=== PATIENT | male | born 1945 | race Caucasian/White ===

== ENCOUNTER → 2018-09-01 07:41 | Outpatient (CLI) | payer MEDICARE, SELFPAY ==
[2018-05-03 16:01] VITALS: BMI 25.5
[2018-09-01 10:23] LABS: AST(SGOT) 33 U/L (15-37); Alanine Aminotransfer ALT/SGPT 54 U/L (16-61); Alkaline Phosphatase 106 U/L (45-117); Bilirubin, Direct 0.22 mg/dL (0.00-0.30); Cholesterol 139 mg/dL (200); Globulin 3.1 g/dL (2.2-4.2); High Density Lipoprotein 41 mg/dL; Protein, Total 7.1 g/dL (6.4-8.2); Triglycerides 111 mg/dL; Very Low Density Lipoprotein 22 mg/dL (5-40)
== END ==
PROVIDERS: Family Provider Internal Medicine; PCP Internal Medicine; Referring Provider Internal Medicine Cardiovascular Disease; Visit Provider Internal Medicine Cardiovascular Disease
DX: E78.5 Hyperlipidemia, unspecified (principal); I25.10 Atherosclerotic heart disease of native coronary artery without angina pectoris; Z12.5 Encounter for screening for malignant neoplasm of prostate
CPT/HCPCS: 36415; 80061; 80076; 84153; G0103

== ENCOUNTER → 2019-03-09 | Outpatient (CLI) | payer MEDICARE, SELFPAY ==
[2018-09-05 09:48] VITALS: BMI 25.7
[2019-03-09 08:28] LABS: AST(SGOT) 30 U/L (15-37); Alanine Aminotransfer ALT/SGPT 46 U/L (16-61); Albumin, Serum 3.7 g/dL (3.2-5.0); Alkaline Phosphatase 90 U/L (45-117); Bilirubin, Direct 0.16 mg/dL (0.00-0.30); Cholesterol 136 mg/dL (200); Globulin 3.1 g/dL (2.2-4.2); High Density Lipoprotein 40 mg/dL; Protein, Total 6.8 g/dL (6.4-8.2); Triglycerides 114 mg/dL; Very Low Density Lipoprotein 23 mg/dL (5-40)
== END | disposition home or self-care (01) ==
LOC: LAB 07:03
PROVIDERS: Family Provider Internal Medicine; PCP Internal Medicine; Referring Provider Internal Medicine Cardiovascular Disease; Visit Provider Internal Medicine Cardiovascular Disease
DX: E78.5 Hyperlipidemia, unspecified (principal)
CPT/HCPCS: 36415; 80061; 80076

== ENCOUNTER 2019-05-20 16:24 | Emergency (ER) | payer MEDICARE, SELFPAY ==
[2019-03-20 10:30] VITALS: BMI 25.0
[2019-05-20 16:29] VITALS: BP 145/76; PULSE 60; RESP 16; TEMP 36.3; O2SAT 94; BMI 25.2
--- NOTE | 2019-05-20 16:35 | EKG12_ITS ---
Test Reason : CP Blood Pressure : / mmHG Vent. Rate : 056 BPM Atrial Rate : 056 BPM P-R Int : 142 ms QRS Dur : 090 ms QT Int : 412 ms P-R-T Axes : 029 017 050 degrees QTc Int : 397 ms Sinus bradycardia Otherwise normal ECG Confirmed by DARRYL CULP, NOBLE ([id number]), development editor KARSTEN WEISS ([id number]) on 05/23/2019 12:17:59 PM Referred By: Confirmed By:NOBLE ANDREWS MD
--- NOTE | 2019-05-20 16:36 | RAD_ITS ---
STUDY: X-RAY CHEST REASON FOR EXAM: Male, 73 years old. Extreme heartburn. TECHNIQUE: Portable chest. COMPARISON: 10/12/2016. FINDINGS: The lungs are clear and expanded. There is no demonstrated pleural abnormality. Normal size heart. Prior CABG. Normal mediastinum and christian. Normal visualized pulmonary arteries. Normal visualized aortic arch and descending thoracic aorta. Normal visualized thoracic spine. Normal visualized ribs, clavicles, and shoulders. There is no demonstrated abnormality of the visualized soft tissue structures of the upper abdomen. RAD/Chest 1 View (Portable) IMPRESSION: Normal x-ray examination of the chest. Electronically Signed: Dilcia Garber MD at 17:01 EDT Tel , Service support ,
--- NOTE | 2019-05-20 16:38 | ED.DCSUM_ITS ---
- ER Visit Summary Date of Service: 05/20/19 Chief Complaint: Chest pain History of Present Illness: The patient is a 73 M who presents with chest pain that began today. Patient states he was visiting a friend in the hospital when his pain began. Patient states this lasted approximately 10 to 15 minutes. Patient states the pain was over the epigastric and substernal area. Patient describes it as sharp. Patient states the pain has resolved. Patient does admit to some shortness of breath with this. Patient states he took a Zantac at home and his pain improved after this. Patient does admit to some recent travel. Patient denies any nausea or vomiting. Patient denies any diaphoresis. Patient denies any palpitations. Currently, the patient denies any chest pain. Patient states he called his ux lead who referred him to the emergency department for evaluation. Physical Examination: Vital signs are stable. Patient is afebrile. Patient is in no acute distress. Oral mucosa is pink and moist. Neck is supple. Trachea is midline. There is no JVD noted. Heart was regular rate and rhythm. Lungs are clear and equal bilateral. Abdomen is soft. Bowel sounds are normal. There is no tenderness. There is no guarding noted. Skin is warm dry. Cranial nerves II through XII are intact. There are no focal motor or sensory deficits noted. Test Results: EKG showed normal sinus rhythm with a rate of 56. There are no acute ST or T wave changes. CBC and basic metabolic profile were essentially within normal limits. Troponin was normal. D-dimer was normal. Portable chest x-ray was obtained. There is no acute cardiopulmonary process. This was interpreted by the radiologist and reviewed by myself. Emergency Department Course and Treatment: Patient was given aspirin here. Patient had no further episodes of chest pain here in the emergency department. Dr. Abebe was here in the emergency department and saw the patient. He agrees that this is most likely an episode of gastroesophageal reflux. Patient states he has a prescription at home for Nexium. Patient states he will start taking that again. Patient was instructed to follow-up with his primary care physician as well as Dr. Abebe. Patient understood and was agreeable with the plan. All questions were answered. Disposition: Discharge home Impression: 1. Chest pain 2. Gastroesophageal reflux disease This note was generated with [employer] software. It may contain incorrect words, spelling, and punctuation that were not noted in review of the chart prior to signing ED Disposition - Plan for ED Patient: Disposition: Home or Assisted Living Diagnosis: Chest pain due to GERD Instructions: GERD (Adult) Referrals: Blayne Robbins MD [Primary Care Provider] - 5-7 Days
[2019-05-20] MEDS: Aspirin 81 MG TAB.CHEW 324 MG PO (16:45)
[2019-05-20 16:57] LABS: Anion Gap 4 (5-15); BUN 21 mg/dL (7-18); Calcium,Total 8.6 mg/dL (8.5-10.1); Chloride 105 mmol/L (98-107); Creatinine, Serum 1.05 mg/dL (0.70-1.30); EST Glomerular Filtration Rate 74 mL/min (>60); Est Glom Filt Rate - Afr Amer 89 mL/min (>60); Estimated Creatinine Clearance 60.33 ml/min; Glucose 121 mg/dL (74-106); Potassium 3.9 mmol/L (3.5-5.1); Sodium Level 143 mmol/L (136-145)
[2019-05-20 17:07] LABS: Absolute Lymphocyte Count 1.04 X10^3/uL (0.83-4.51); Absolute Neutrophil Count 2.9 X10^3/uL (2.0-7.7); Basophil# 0.02 X10^3/uL; Basophil% 0.4 % (0-1); Eosinophil# 0.11 X10^3/uL; Eosinophils% 2.3 % (0-5); Hematocrit 48.1 % (40-54); Hemoglobin 15.5 g/dL (13.0-16.5); Lymphocyte # 1.04 X10^3/ul (4.0); Lymphocyte % 22.1 % (19-41); Mean Corp Hgb Conc 32.2 g/dL (32-36); Mean Corpuscular Hgb 29.1 pg (27.0-32.0); Mean Corpuscular Volume 90.2 fL (80-94); Mean Platelet Vol. 10.8 fl (6.2-12.0); Monocyte# 0.59 X10^3/uL; Monocyte% 12.6 % (0-10); NRBC Flagged by Analyzer 0 % (0-5); Neutrophil # 2.93 X10^3/uL (2.7-7.7); Neutrophil % 62.4 % (47-70); Platelet Count 193 K/mm3 (150-450); RBC Distribution Width CV 13.5 % (11.6-14.6); RBC Distribution Width SD 43.8 fl (35.1-43.9); Red Blood Count 5.33 M/mm3 (4.6-6.2); White Blood Count 4.7 K/mm3 (4.4-11.0)
[2019-05-20 17:19] VITALS: BP 132/73; PULSE 63; RESP 16; O2SAT 97
[2019-05-20 17:46] VITALS: BP 128/78; PULSE 59; RESP 12; O2SAT 97
== END 2019-05-20 17:47 | disposition home or self-care (01) ==
PROVIDERS: Emergency Provider Emergency Medicine; Family Provider Internal Medicine; PCP Internal Medicine
DX: R07.9 Chest pain, unspecified (principal); K21.9 Gastro-esophageal reflux disease without esophagitis; I25.10 Atherosclerotic heart disease of native coronary artery without angina pectoris; Z95.1 Presence of aortocoronary bypass graft; Z79.82 Long term (current) use of aspirin
CPT/HCPCS: 71045; 80048; 84484; 85025; 85379; 93005; 99284

== ENCOUNTER → 2019-09-18 07:20 | Outpatient (CLI) | payer MEDICARE, SELFPAY ==
[2019-09-18 09:04] LABS: AST(SGOT) 34 U/L (15-37); Alanine Aminotransfer ALT/SGPT 62 U/L (16-61); Albumin, Serum 3.6 g/dL (3.2-5.0); Alkaline Phosphatase 96 U/L (45-117); Bilirubin, Direct 0.18 mg/dL (0.00-0.30); Cholesterol 148 mg/dL (200); Globulin 3.1 g/dL (2.2-4.2); High Density Lipoprotein 44 mg/dL; Protein, Total 6.7 g/dL (6.4-8.2); Triglycerides 113 mg/dL; Very Low Density Lipoprotein 23 mg/dL (5-40)
== END ==
PROVIDERS: PCP Internal Medicine; Referring Provider Internal Medicine Cardiovascular Disease; Visit Provider Internal Medicine Cardiovascular Disease
DX: E78.5 Hyperlipidemia, unspecified (principal)
CPT/HCPCS: 36415; 80061; 80076

== ENCOUNTER → 2020-03-14 06:22 | Outpatient (CLI) | payer MEDICARE, SELFPAY ==
[2020-03-14 07:07] LABS: AST(SGOT) 33 U/L (15-37); Alanine Aminotransfer ALT/SGPT 78 U/L (16-61); Albumin, Serum 3.7 g/dL (3.2-5.0); Alkaline Phosphatase 88 U/L (45-117); Bilirubin, Direct 0.19 mg/dL (0.00-0.30); Cholesterol 125 mg/dL (200); Globulin 2.7 g/dL (2.2-4.2); High Density Lipoprotein 39 mg/dL; Protein, Total 6.4 g/dL (6.4-8.2); Triglycerides 100 mg/dL; Very Low Density Lipoprotein 20 mg/dL (5-40)
== END ==
PROVIDERS: PCP Internal Medicine; Referring Provider Internal Medicine Cardiovascular Disease; Visit Provider Internal Medicine Cardiovascular Disease
DX: E78.00 Pure hypercholesterolemia, unspecified (principal)
CPT/HCPCS: 36415; 80061; 80076

== ENCOUNTER → 2020-10-15 07:18 | Outpatient (CLI) | payer MEDICARE, SELFPAY ==
[2020-03-20 11:02] VITALS: BMI 23.8
[2020-10-15 08:44] LABS: AST(SGOT) 32 U/L (15-37); Alanine Aminotransfer ALT/SGPT 46 U/L (16-61); Albumin, Serum 3.7 g/dL (3.2-5.0); Alkaline Phosphatase 88 U/L (45-117); Bilirubin, Direct 0.18 mg/dL (0.00-0.30); Cholesterol 137 mg/dL (200); High Density Lipoprotein 47 mg/dL; Protein, Total 6.7 g/dL (6.4-8.2); Triglycerides 96 mg/dL; Very Low Density Lipoprotein 19 mg/dL (5-40)
== END ==
PROVIDERS: PCP Internal Medicine; Referring Provider Internal Medicine Cardiovascular Disease; Visit Provider Internal Medicine Cardiovascular Disease
DX: E78.00 Pure hypercholesterolemia, unspecified (principal)
CPT/HCPCS: 36415; 80061; 80076

== ENCOUNTER 2021-01-25 11:55 | Emergency (ER) | payer MEDICARE, SELFPAY ==
[2020-03-20 11:02] VITALS: BMI 23.8
[2021-01-25 11:55] VITALS: BP 125/64; PULSE 62; RESP 16; TEMP 36.8; BMI 24.3
--- NOTE | 2021-01-25 12:09 | CT_ITS ---
STUDY: CT ABDOMEN AND PELVIS WITHOUT CONTRAST REASON FOR EXAM: Male, 75 years old. RLQ pain w/ radiation into testicle RADIATION DOSAGE (If Supplied By Facility): CTDIvol = ( 6.28 ) mGy, DLP = ( 434.51 ) mGycm TECHNIQUE: Transaxial images were obtained from the dome of the diaphragm to the symphysis pubis without oral contrast, and without intravenous contrast. Sagittal and coronal images were reconstructed. Individualized dose optimization techniques were used for this CT. COMPARISON: 12/19/2013 FINDINGS: The visualized lung bases are unremarkable. The visualized portions of the heart are within normal limits. Normal liver. There are surgical clips in the gallbladder fossa consistent with a prior cholecystectomy. Normal spleen. Normal pancreas. Normal bilateral adrenal glands. Normal right kidney. Pelvic left kidney. 3 mm nonobstructing stone lower pole left kidney. 4 mm obstructing stone at the left ureterovesical junction with the mild ureteral dilatation and hydronephrosis. Normal visualized stomach. Normal small intestine. Normal colon. There is non-visualization of the appendix. Normal abdominal aorta. Normal inferior vena cava. Normal retroperitoneum. Normal urinary bladder. 5 x 10 cm fluid collection in the right side of the pelvis may represent a bladder diverticulum. Large left hydrocele of the scrotum. Normal abdominal wall. Mild dextroscoliosis of the thoracolumbar spine with degenerative disc disease per CT/Abdomen/Pelvis without Cont IMPRESSION: 1. Pelvic left kidney with a 4 mm obstructing stone at the left ureterovesical junction with mild ureteral dilatation and hydronephrosis. 2. 5 x 10 cm fluid collection in the right side of the pelvis which may represent a bladder diverticulum. 3. Large left hydrocele. Electronically Signed: Yovani Peña MD at 12:57 EDT Tel , Service support ,
--- NOTE | 2021-01-25 12:11 | EDS_ITS ---
HPI History of Present Illness Chief Complaint: Complaint Informant: patient Pain Onset: Yesterday Context: - (Awoke with pain) Timing: Continuous Current Severity: Moderate Maximum Severity: Severe Worsened by: Sitting or lying down Relieved by: Standing, scrotal support Penile Discharge Genital Discharge Amount: None Urinary Symptoms Genitourinary Symptoms: No Symptoms Narrative Narrative: Patient started having right testicular pain yesterday, was seen at urgent care and diagnosed with epididymitis prescribed Bactrim which he has started taking. Today the pain is worse, and into his right lower quadrant. He denies any nausea or vomiting. He took ibuprofen for pain which was helping yesterday but not this morning. He denies any other new symptoms. Yesterday, he had a urinalysis that dipped positive for blood only, he brought the results. It was otherwise negative. No history of STDs. He also states that he had an incidental finding on some type of imaging of his abdomen/pelvis 2 months ago when he was in [place] and had calculus cholecystitis, he was advised to see a urologist because of the abnormality but they did not know what it was. He has not yet been able to see a urologist. [facility] Medical History (Updated 01/25/21 @ 13:[address] Monty Wong MD) Atherosclerotic heart disease of [place] coronary artery without angina pectoris HLD (hyperlipidemia) Home Medications aspirin 81 mg PO DAILY@0800 12/19/13 [History Last Taken Unknown] multivitamin 1 tab PO DAILY 03/20/19 [History Last Taken Unknown] atorvastatin 40 mg tablet 40 mg PO QHS #90 tab 11/03/20 [Rx Last Taken Unknown] oxycodone-acetaminophen [Percocet] 1 tab PO Q4H PRN 3 Days #18 tab 01/25/21 [Rx Last Taken Unknown] Allergy/AdvReac Type Severity Reaction Status Date / Time No Known Allergies Allergy Verified 01/25/21 11:55 Family History Father Hx of CABG Mother Hx of CABG CAD (coronary artery disease) Surgical History H/O coronary artery bypass surgery (02/27/99) Social History Smoking Status: Never smoker alcohol intake: current alcohol intake frequency: a few times a week Alcohol type: wine substance use type: does not use caffeine: No what type of physical activity do you participate in: walking and bicycling frequency: 3-4 times per week duration: 30-45 minutes/day seatbelt use: always do you feel safe at home: Yes ROS ROS ED Constitutional Constitutional ED: Denies chills or fever(s) Eyes Eyes: Denies change in vision or diplopia ENT ENT ED: Denies rhinorrhea or sore throat Cardiovascular Cardiovascular: Denies chest pain or palpitations Respiratory/Chest Respiratory/Chest: Denies cough or dyspnea Gastrointestinal Gastrointestinal: Reports abdominal pain; Denies diarrhea, nausea or vomiting Genitourinary Genitourinary ED: Reports as per HPI and scrotal pain; Denies dysuria, hematuria or testicular swelling Musculoskeletal Musculoskeletal: Denies back pain or neck pain Integumentary Denies abscess or rash Neurologic Neurologic: Denies headache(s), paresthesias or weakness Psychiatric Psychiatric: Denies anxiety or suicidal thoughts EXAM Physical Exam Const Vital Signs: 01/25/21 11:55 Temperature 98.3 F Temperature Source Oral Pulse Rate 62 Respiratory Rate 16 Blood Pressure 125/64 H Blood Pressure Mean 84 Positive well nourished and well developed General Appearance ED: well developed and NAD HEENT Reports moist mucous membranes normocephalic and atraumatic Eyes PERRL and EOMs intact bilaterally Neck full ROM and supple Resp normal respiratory effort and clear to auscultation bilaterally Cardio regular rate, regular rhythm and no murmurs GI non-distended Auscultation: normoactive bowel sounds Palpation: soft and tender RLQ; Negative for guarding or rebound tenderness present no CVA tenderness and no hernias present Testes: testicular lie normal and testicular tenderness right (Proximal posteriorly, no distal testicular tenderness. Cremasteric intact.); Negative for enlarged testicle(s), testicular swelling or blue dot sign Back/Spine no CVA tenderness General Back: other FROM Extremity normal to inspection General Extremety ED: Negative for edema, pulses abnormal or tenderness General Extremity: Negative for edema or pulses abnormal Neuro oriented x3, CN's II-XII intact bilaterally and no sensory deficits noted Sensorium / Orientation: awake and alert Motor Exam: strength 5/5 throughout Skin no rashes or lesions noted and no wounds MDM MDM MDM Narrative Medical decision making narrative: As below, patient has an incidental left- sided obstructing 4 mm stone. He is not having pain from this so I do not know how long this has been there, but I discussed expectant management with him and gave him urinary strainers to go home with. He was given a tramadol here, but while waiting for CAT scan results, it did not help his pain. Therefore he will be prescribed stronger medication, I do agree with the diagnosis of right epididymitis, for which he should continue the antibiotics and ibuprofen as needed. He is to follow-up with urology as he already plan to, I discussed the possible bladder diverticulum with him and consulting with urology concerning that. Radiography Diagnostic Testing: Radiology Impression Abdomen/Pelvis CT 01/25/21 12:09 IMPRESSION: 1. Pelvic left kidney with a 4 mm obstructing stone at the left ureterovesical junction with mild ureteral dilatation and hydronephrosis. 2. 5 x 10 cm fluid collection in the right side of the pelvis which may represent a bladder diverticulum. 3. Large left hydrocele. Electronically Signed: Yovani Peña MD at 12:57 EDT Tel , Service support , Discharge Plan Triage Chief Complaint: Complaint ED Provider: Monty Wong Dx/Rx/DC Orders Clinical Impression: Epididymitis, right, Ureterolithiasis, Bladder diverticulum Instructions: ED Epididymitis, ED Urine Strainer Prescriptions: New oxycodone-acetaminophen [Percocet] 2.5-325 mg tablet 1 tab PO Q4H PRN (Reason: pain) 3 Days Qty: 18 RF: 0 No Action multivitamin Tablet 1 tab PO DAILY RF: 0 aspirin 81 MG tablet,chewable 81 mg PO DAILY@0800 RF: 0 atorvastatin 40 mg tablet 40 mg PO QHS Qty: 90 RF: 3 Primary Care Provider: Blayne Robbins Referrals: Raymundo Ingram MD [STAFF PHYSICIAN] - 3-5 Days Blayne Robbins MD [Primary Care Provider] - Activity Restrictions/Additional Instructions: Continue taking Bactrim as prescribed Disposition Disposition: Home, self care
[2021-01-25] MEDS: traMADol 50 MG Tablet PO (12:32)
[2021-01-25] MEDS: oxyCODONE 5 MG Tablet PO (13:39)
== END 2021-01-25 13:42 | disposition home or self-care (01) ==
PROVIDERS: Emergency Provider Emergency Medicine; PCP Internal Medicine
DX: N45.1 Epididymitis (principal); N20.1 Calculus of ureter; N32.3 Diverticulum of bladder; I25.10 Atherosclerotic heart disease of native coronary artery without angina pectoris
CPT/HCPCS: 74176; 99283

== ENCOUNTER → 2021-03-02 13:54 | Outpatient (CLI) | payer MEDICARE, SELFPAY ==
[2021-02-25 12:55] VITALS: BMI 24.3
--- NOTE | 2021-03-02 13:55 | ECHOD_ITS ---
Reason For Study: S/P CABG Procedure This was a 2D Doppler, Color Flow transthoracic echocardiogram. Exam performed in department. Left Ventricle Normal LV size. Sigmoid septum. Left ventricular systolic function is normal. The estimated ejection fraction is 60 %. Stage 1 diastolic dysfunction. No regional wall motion abnormalities noted. Right Ventricle Normal RV size. Normal systolic function. Atria Normal left atrium. Normal right atrium. Mitral Valve Normal mitral valve. Tricuspid Valve Normal tricuspid valve. Mild tricuspid valve insufficiency. Pulmonary artery systolic pressure is 28 mmHg. Aortic Valve Normal aortic valve. Trisinus/trileaflet aortic valve. Pulmonic Valve Normal pulmonic valve. Great Vessels Normal aortic root. The pulmonary artery is normal size. Normal inferior vena cava. Pericardium/Pleural No pericardial effusion. MMode/2D Measurements & Calculations LVIDd: 5.0 cm IVSd: 0.80 cm Ao root diam: 3.3 cm LVIDs: 3.0 cm LVPWd: 0.98 cm RVDd: 3.4 cm FS: 40.3 % LAV(MOD-bp): 53.4 ml LA A4 area: 18.4 cm2 LA dimension(2D): 4.5 cm LAV(MOD-bp) Indexed: 29.6 ml/m2 LAV(MOD-sp2): 53.7 ml LAV(MOD-sp4): 53.3 ml RA A4 area: 15.8 cm2 Time Measurements MV dec time: 0.23 sec Doppler Measurements & Calculations MV E max casey: 65.2 cm/sec Lat Peak E' Casey: 9.4 cm/sec Med Peak E' Casey: 6.3 cm/sec MV A max casey: 74.1 cm/sec E/E' lat: 6.9 E/E' med: 10.4 MV E/A: 0.88 Ao V2 max: 139.0 cm/sec LV V1 max: 126.5 cm/sec PA V2 max: 92.1 cm/sec Ao max P.3 mmHg LV V1 max P.4 mmHg TR max casey: 243.1 cm/sec TR max P.6 mmHg ECHO/Echo Complete Interpretation Summary Normal LV size. Left ventricular systolic function is normal. The estimated ejection fraction is 60 %. Mild tricuspid valve insufficiency. Stage 1 diastolic dysfunction. Ordering Physician: Gray Abebe Referring Physician: Blayne Robbins Performed By: Kerrie King, AZALIA, RVT
== END ==
PROVIDERS: PCP Internal Medicine; Referring Provider Internal Medicine Cardiovascular Disease; Visit Provider Internal Medicine Cardiovascular Disease
DX: Z01.810 Encounter for preprocedural cardiovascular examination (principal); I25.10 Atherosclerotic heart disease of native coronary artery without angina pectoris; E78.00 Pure hypercholesterolemia, unspecified; N20.1 Calculus of ureter; N32.3 Diverticulum of bladder; N45.1 Epididymitis; Z95.1 Presence of aortocoronary bypass graft
CPT/HCPCS: 93306

== ENCOUNTER 2021-03-11 05:25 | Inpatient (IN) | payer MEDICARE, SELFPAY ==
[2021-02-25 12:55] VITALS: BMI 24.3
[2021-03-09 15:38] LABS: Hematocrit 46.8 % (40-54); Hemoglobin 15.1 g/dL (13.0-16.5); Mean Corp Hgb Conc 32.3 g/dL (32-36); Mean Corpuscular Hgb 28.7 pg (27.0-32.0); Mean Corpuscular Volume 88.8 fL (80-94); Mean Platelet Vol. 11.1 fl (6.2-12.0); Platelet Count 219 K/mm3 (150-450); RBC Distribution Width CV 13.4 % (11.6-14.6); RBC Distribution Width SD 43.4 fl (35.1-43.9); Red Blood Count 5.27 M/mm3 (4.6-6.2); White Blood Count 5.1 K/mm3 (4.4-11.0)
[2021-03-09 15:59] LABS: Anion Gap 4 (5-15); BUN 22 mg/dL (7-18); BUN/Creat Ratio 20.8 RATIO (10-20); Calcium,Total 8.7 mg/dL (8.5-10.1); Chloride 104 mmol/L (98-107); Creatinine, Serum 1.06 mg/dL (0.70-1.30); EST Glomerular Filtration Rate 73 mL/min (>60); Est Glom Filt Rate - Afr Amer 88 mL/min (>60); Glucose 91 mg/dL (74-106); Potassium 4.3 mmol/L (3.5-5.1); Sodium Level 141 mmol/L (136-145)
[2021-03-11] VITALS (11 sets, daily range): BP systolic 101–152; BP diastolic 47–101; PULSE 16–67; RESP 16–18; TEMP 36–37.3; O2SAT 95–100; BMI 23.8
--- NOTE | 2021-03-11 | BLB_PTH ---
PATIENT: BRIANNA PATRICK LOC: MS3 U#:[id number] AGE/SX: 75/M ROOM: [facility]315 RE03/11/[address]: Dr. Raymundo Ingram MD : 1945 BED: 1 DIS: 03/12/2021 SPEC #: [id number] RECD: 03/11/21 15:14 STATUS: FLORINA BRANHAM #: [id number] JENNIFER: 03/11/21 00:[address]: Raymundo Ingram DEPT: SURGICAL PATHOLOGY RECD BY: Jose Ramon Wilson ENTERED: 03/12/21 13:29 SP TYPE: TURB OTHR DR: Dr. Blayne Robbins MD Tissues: A - Urinary bladder, NOS B - PROSTATE BIOPSY Procedures: Surgery Specimen Level IV HEADER OPERATION: Lap robotic bladder diverticulectomy, cysto, TUR prostate PRE-OP DIAGNOSIS: Bladder diverticulum, ureterolithiasis TISSUE SUBMITTED: A ? Bladder diverticulum, B ? Prostate tissue MICROSCOPIC DIAGNOSIS A. Urinary bladder diverticulum, excision: Minimal benign urothelial hyperplasia with focal minimal chronic inflammation. No evidence of dysplasia. B. Prostate tissue, biopsy: Minimal chronic inflammation. AM:gage 03/13/2021 MICROSCOPIC DESCRIPTION Slides are reviewed. GROSS DESCRIPTION A - Received in fixative is one container labeled with the patient's name and designated bladder diverticulum. The specimen consists of a blind sac-like structure consisting of diverticulum measuring 7 x 3 x 2 cm. No mass lesion is identified. The outer surface is inked black. Guard Lieutenant sections are submitted in six cassettes. B - Received in fixative is one container labeled with the patient's name and designated prostate tissue. The specimen consists of multiple irregular fragments of light nash soft tissue that in aggregate measure 1.2 x 0.5 x 0.2 cm. The specimen is totally submitted in one cassette. / SJ:gage 03/12/21 TC:3 CPT: 36915 x2
[2021-03-11] MEDS: Lactated Ringers 1,000 ML 100 ML IV ×2 (05:35→10:22)
--- NOTE | 2021-03-11 07:13 | PCM.HP.STD ---
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 [facility] Medical History (Updated 03/04/21 @ 09:33 by [place] Phillips) Atherosclerotic heart disease of [place] coronary artery without angina pectoris Easy bruising GERD (gastroesophageal reflux disease) High cholesterol History of echocardiogram History of renal disease HLD (hyperlipidemia) Leg cramps Non-smoker Prostate disease Wears glasses Home Medications aspirin 81 mg PO DAILY@0800 12/19/13 [History Last Taken 03/03/21] multivitamin 1 tab PO DAILY 03/20/19 [History Last Taken Unknown] atorvastatin 40 mg PO QHS 03/04/21 [History Last Taken Unknown] Allergy/AdvReac Type Severity Reaction Status Date / Time No Known Allergies Allergy Verified 03/11/21 05:33 Family History Father Hx of CABG Mother Hx of CABG CAD (coronary artery disease) Surgical History H/O coronary artery bypass surgery (02/27/99) History of cholecystectomy (10/2020) Social History Smoking Status: Never smoker alcohol intake: current alcohol intake frequency: a few times a week Alcohol type: wine substance use type: does not use caffeine: No what type of physical activity do you participate in: walking and bicycling frequency: 3-4 times per week duration: 30-45 minutes/day seatbelt use: always do you feel safe at home: Yes ROS Constitutional Constitutional: Denies chills, fever(s) or malaise Eyes Eyes: Denies blurry vision or change in vision ENT HEENT: Reports none Cardiovascular Cardiovascular: Denies chest pain or palpitations Respiratory/Chest Respiratory/Chest: Denies cough or shortness of breath with exertion Gastrointestinal Gastrointestinal: Denies abdominal pain, constipation or diarrhea Genitourinary Genitourinary: Reports systems reviewed and no addt'l complaints, except as documented Musculoskeletal Musculoskeletal: Denies back pain, joint stiffness or joint swelling Integumentary Integumentary: Denies dry skin, jaundice, lesions or rash Neurologic Neurologic: Denies confusion, syncope or weakness Psychiatric Psychiatric: Reports none; Denies anxiety or depression Endocrine Endocrinology: Denies excessive sweating, fatigue or flushing Hematologic/Lymphatic Hematologic/Lymphatic: Denies anemia, easy bleeding or easy bruising Vital Signs Vital Signs Vital Signs: 03/11/21 06:12 Temperature 98.2 F Temperature Source Temporal Pulse Rate 16 L Respiratory Rate 16 Respiratory Pattern Normal Blood Pressure 140/67 H Blood Pressure Mean 91 Blood Pressure Source Monitor Blood Pressure Position Semi-Fowlers Blood Pressure Location Left Arm Pulse Ox 99 Oxygen Delivery Method Room Air Weight Weight: 68.9 kg Body Mass Index (BMI) 23.8 Physical Exam Const alert and oriented x3 General Appearance: cooperative HEENT normocephalic, head/scalp atraumatic, EAC's normal and TM's normal bilaterally Eyes PERRL and EOMs intact bilaterally Pupil: sluggish Neck no lymphadenopathy, supple and no JVD General: trachea midline Lymph Lymphatic: no lymphadenopathy noted, lymphedema and lymphadenopathy Resp normal respiratory effort, normal air movement and clear to auscultation bilaterally Cardio regular rate, regular rhythm and peripheral pulses 2+ throughout GI soft to palpation, non-tender and non-distended Extremity normal capillary refill and no clubbing, cyanosis or edema General Extremity: no tenderness to palpation of joints or extremities Skin no rashes or lesions noted General Skin Exam: turgor normal Lesions: no lesions Rashes: no rashes Neuro CN's II-XII intact bilaterally Speech: speech normal Motor Exam: strength 5/5 throughout; Negative for general weakness Psych thought process normal, cooperative and affect normal Appearance: appropriate Results Lab / Micro Data Result Diagrams: 03/09/21 14:45 03/09/21 14:45 Assessment & Plan Assessment/Plan (1) Bladder diverticulum: (2) Ureterolithiasis: PLAN: Plan for robotic diverticulectomy and transurethral resection of the prostate.
--- NOTE | 2021-03-11 07:22 | PCM.DC ---
Discharge Instructions Diet Discharge Diet: No restrictions Activity Discharge Activity: Return to Normal Activity and May Not Drive (while taking narcotic pain medications.) Dressing / Incision Call your doctor if you observe: Fever of 101 or Higher Catheter: Adorno to leg bag and Adorno to large bag Additional Dressing/Incision Instructions:: home with adorno to leg bag Follow Up Care Please Follow Up With: Raymundo Ingram MD When: Call [phone] for an appointment Test Results: Test results from this visit will be discussed in further detail at your follow-up appointment, if applicable. Discharge Plan Admission Admit Date/Time: 03/11/21 05:25 Primary Reason for Your Visit: turp, bladder diverticulectomy Attending Provider: Raymundo Ingram Primary Care Provider: Blayne Robbins Discharge Orders/Prescriptions Prescriptions: New ciprofloxacin HCl [Cipro] 500 mg tablet 500 mg PO BID Qty: 14 RF: 0 oxycodone-acetaminophen 5-325 mg tablet 1 tab PO Q6H PRN (Reason: pain) 7 Days Qty: 10 RF: 0 docusate sodium [Colace] 100 mg capsule 100 mg PO BID Qty: 20 RF: 0 Continued multivitamin Tablet 1 tab PO DAILY RF: 0 atorvastatin 40 mg tablet 40 mg PO QHS RF: 0 Held aspirin 81 MG tablet,chewable 81 mg PO DAILY@0800 RF: 0 Hold Instructions: Resume on 03/25/21. Referrals / Follow Up: Raymundo Ingram MD [STAFF PHYSICIAN] - Blayne Robbins MD [Primary Care Provider] -
[2021-03-11] MEDS: Cefazolin 2 GM in 0.9% Normal Saline 100 ML IV (07:24)
[2021-03-11] MEDS: Bupivacaine Mpf 0.5% 30 ML VIAL (09:24)
--- NOTE | 2021-03-11 09:38 | PCM.OPRPT ---
Report of Operation Date of Procedure: 03/11/21 Pre-Operative Diagnosis: Large bladder diverticulum, BPH with obstruction Post-Operative Diagnosis: Same Surgery/Procedure Performed:: Laparoscopic robotic assisted excision of bladder diverticulum, transurethral resection of the prostate. Description of Surgical Findings:: Indication this is a 75-year-old male was found to have a large bladder tic diverticulum presented to the the emergency room with severe pain in the office we did a cystoscopy that demonstrated a large bladder diverticulum off the right side of the bladder, he also has a left pelvic kidney and a small stone within the kidney but regular just observe this for now. He presents to the hospital for removal of his bladder diverticulum close closure of the diverticulum os and then also transurethral resection of the prostate. Patient was taken back to the operating room after smooth induction of general anesthesia he was placed in dorsolithotomy position. The penis and testicles were prepped and draped in the usual sterile fashion. As well as the lower abdomen. I then made a small incision below the umbilicus and used a Veress needle to enter the peritoneal cavity and insufflated the peritoneal cavity with CO2 gas. I then placed my camera trocar, right arm left arm trocar and third arm trocar we also placed an physiotherapy assistant suction trocar. We then docked the robot the patient was placed in steep Trendelenburg and we proceeded with the dissection and removal of the bladder diverticulum at first the catheter was put into a bladder, and then we filled the bladder up with about 300 cc of neuro normal saline and this allowed the bladder to distend and then we could see the bladder diverticulum protruding from the right side of the bladder onto the peritoneum. I then opened up the peritoneum and then we started dissection of the bladder diverticulum the we used a fourth arm to hold the diverticulum taunt and as I dissected the bladder diverticulum we followed the epithelial lining of the bladder diverticulum inferiorly and then superiorly and then laterally as we did this meticulous dissection was taken to make sure that there was no involvement of the ureter with the diverticulum the diverticulum was dissected off the ureter completely and then eventually the right diverticulum was dissected until only it was its attachments to the diverticular os was present I then placed a stay stitch at the diverticular opening and then we transected the opening of the bladder diverticulum and then we closed the diverticular opening with a running 3-0 Vicryl stitch then we tested the closure we filled the bladder up with 180 cc of water there was no leakage from the closure site. Then at this point the peritoneum was closed over the closed back together to reapproximate the peritoneum and then we undocked the robot the bladder diverticulum is put into an Endo Catch bag and extracted through the umbilical site. Patient was then we closed all the incisions and then we repositioned the patient in dorsolithotomy position I then went into the bladder with a transurethral resectoscope and using a 24 [place] noncontinuous flow resectoscope I first inspected the bladder the diverticulum had removed and the opening of been closed completely the left and right ureteral orifice were intact and effluxing clear urine I then used the resectoscope to perform a transurethral section of the prostate resecting the base the right lobe the left lobe and very carefully the roof of the prostate and so I had a nice wide open resection all the way back to the apical tissue and had resected all the tissue all the way back to the apex with no flapping tissue. Once the resection was completed then I placed a 20 [place] catheter into the bladder we did not use continuous bladder irrigation as I did not want to distend the bladder and we just put the 20 [place] catheter on gravity drainage the urine was a gusman color. After the procedure was completed the patient's anesthetic is being reversed and is taken back to the PACU in good condition. Type of Anesthesia: General Drains: 20 fr Admit VTE Documentation VTE Present on Admission: No VTE Mechan Device Prophylaxis: SCD's
--- NOTE | 2021-03-11 10:05 | SUR.PHASEI ---
When patient arrived to pacu and assessed, crepitus noted from top of lungs down to base of lungs. Crepitus was found by palpitation and auscultation. Lung sounds were otherwise clear bilaterally [employer]ole along with [employer] are aware of crepitus and stated Dr. Ingram new about it. Pt is currently oxygenating on room air @ 99%. Pt denies any complaints of SOB. Dr. Petreson called and made aware of patient status. Dr. Peterson stated if oxygen levels start to drop, a stat cxr will need to be completed. Will continue to monitor patient and patient oxygen saturation in pacu until cleared to be discharged from pacu.
[2021-03-11] MEDS: 0.9% Normal Saline 1,000 ML 150 ML IV ×2 (11:59→20:20)
[2021-03-11] MEDS: Ketorolac 15 MG/ML Vial IV (14:13)
[2021-03-11] MEDS: Multivitamins,Therapeutic Tablet 1 TABLET PO (14:14)
[2021-03-11] MEDS: Docusate Sodium 100 MG Capsule 200 MG PO ×2 (14:14→21:47)
[2021-03-11] MEDS: Ciprofloxacin 400 MG/200 ML BAG 200 MG IV (16:11)
[2021-03-11] MEDS: Atorvastatin Calcium 40 MG Tablet PO (21:47)
[2021-03-12 00:09] VITALS: BP 100/43; PULSE 47; RESP 16; TEMP 36.7; O2SAT 98
[2021-03-12] MEDS: DiphenhydrAMINE 25 MG Capsule PO (00:16)
[2021-03-12 02:39] VITALS: BP 99/48; PULSE 46; RESP 16; TEMP 36.8; O2SAT 96
[2021-03-12] MEDS: 0.9% Normal Saline 1,000 ML 150 ML IV (02:40)
[2021-03-12] MEDS: Ciprofloxacin 400 MG/200 ML BAG 200 MG IV (02:41)
[2021-03-12 06:14] VITALS: BP 101/44; PULSE 47; RESP 16; TEMP 36.6; O2SAT 100
[2021-03-12] MEDS: Ketorolac 15 MG/ML Vial IV (06:42)
[2021-03-12] MEDS: 0.9% Saline Lock 10 ML Syringe IV (06:42)
--- NOTE | 2021-03-12 07:23 | PCM.PN.GU ---
Subjective Subjective Status post removal of the diverticulum and TURP urine is clear Etienne catheter in place abdomen soft and benign Objective Data Objective Data Vital Signs: Vital Signs Temp Pulse Resp BP Pulse Ox 97.9 F 47 L 16 101/44 L 100 03/12/21 06:14 03/12/21 06:14 03/12/21 06:14 03/12/21 06:14 03/12/21 06:14 Oxygen Delivery Method Room Air Weight: 68.9 kg Body Mass Index (BMI) 23.8 Intake & Output: Intake and Output for Last 24 Hours 03/10/21 03/11/21 03/12/21 23:59 23:59 23:59 Intake Total 3521.67 / 3521.67 1602.5 / 1602.5 Output Total 2900 / 2900 1150 / 1150 Balance 621.67 / 621.67 452.5 / 452.5 Lab / Micro Data Result Diagrams: 03/09/21 14:45 03/09/21 14:45 Physical Exam Const alert and oriented x3 General Appearance: cooperative HEENT normocephalic, head/scalp atraumatic, EAC's normal and TM's normal bilaterally Eyes PERRL and EOMs intact bilaterally Pupil: sluggish Neck no lymphadenopathy, supple and no JVD General: trachea midline Lymph Lymphatic: no lymphadenopathy noted, lymphedema and lymphadenopathy Resp normal respiratory effort, normal air movement and clear to auscultation bilaterally Cardio regular rate, regular rhythm and peripheral pulses 2+ throughout GI soft to palpation, non-tender and non-distended Extremity normal capillary refill and no clubbing, cyanosis or edema General Extremity: no tenderness to palpation of joints or extremities Skin no rashes or lesions noted General Skin Exam: turgor normal Lesions: no lesions Rashes: no rashes Neuro CN's II-XII intact bilaterally Speech: speech normal Motor Exam: strength 5/5 throughout; Negative for general weakness Psych thought process normal, cooperative and affect normal Appearance: appropriate Assessment & Plan Assessment/Plan (1) Bladder diverticulum: PLAN: Home today with Etienne catheter patient is doing well.
[2021-03-12 08:29] VITALS: BP 106/48; PULSE 45; RESP 16; TEMP 36.6; O2SAT 99
[2021-03-12] MEDS: Multivitamins,Therapeutic Tablet 1 TABLET PO (09:33)
[2021-03-12] MEDS: Docusate Sodium 100 MG Capsule 200 MG PO (09:33)
--- NOTE | 2021-03-12 10:36 | PHA.DC.MC ---
Pharmacy Service has performed discharge medication reconciliation and counseling for this patient. The patient was counseled on the following discharge medications and changes in medications for homegoing were reviewed. 1. DOCUSATE 2. PERCOCET 3. CIPROFLOXACIN The Reason for Use, instructions for use, and potential side effects were reviewed for all new medications. The patient's questions regarding all of their medications were answered. The patient was able to verbally demonstrate an understanding of their discharge medications. Home Medications aspirin 81 mg PO DAILY@0800 12/19/13 multivitamin 1 tab PO DAILY 03/20/19 atorvastatin 40 mg PO QHS 03/04/21 ciprofloxacin HCl [Cipro] 500 mg PO BID #14 tab 03/11/21 docusate sodium [Colace] 100 mg PO BID #20 cap 03/11/21 oxycodone-acetaminophen 1 tab PO Q6H PRN 7 Days #10 tab 03/11/21 The patient's discharge medication list was reviewed for discrepancies and discrepancies were resolved.
== END 2021-03-12 11:28 | disposition home or self-care (01) | DRG 654 ==
LOC: ACINP 06:53 → MS3 16:47
PROVIDERS: Anesthesiology; Admitting Provider Urology; PCP Internal Medicine; Referring Provider Urology; Visit Provider Urology
PROC: 0TBB4ZZ Excision of Bladder, Percutaneous Endoscopic Approach (ICD-10-PCS; CPT 51999; principal; 2021-03-11 07:00)
PROC: 0TBB4ZZ Excision of Bladder, Percutaneous Endoscopic Approach (ICD-10-PCS; 2021-03-11 07:00)
DX: N32.3 Diverticulum of bladder (principal); N13.8 Other obstructive and reflux uropathy; N20.1 Calculus of ureter; R35.1 Nocturia; N40.1 Benign prostatic hyperplasia with lower urinary tract symptoms; I25.10 Atherosclerotic heart disease of native coronary artery without angina pectoris; I49.1 Atrial premature depolarization; E78.00 Pure hypercholesterolemia, unspecified; Z90.49 Acquired absence of other specified parts of digestive tract; Z95.1 Presence of aortocoronary bypass graft; Z79.82 Long term (current) use of aspirin; Z79.899 Other long term (current) drug therapy
CPT/HCPCS: 36415; 80048; 85027; 88305; 88307; 99251; J7030; J7120; A4216; G0463; J0744; J2405

== ENCOUNTER → 2022-03-16 | Outpatient (CLI) | payer MEDICARE, SELFPAY ==
[2022-03-16 07:53] LABS: AST(SGOT) 31 U/L (15-37); Alanine Aminotransfer ALT/SGPT 46 U/L (16-61); Albumin, Serum 3.8 g/dL (3.2-5.0); Alkaline Phosphatase 82 U/L (45-117); Bilirubin, Direct 0.22 mg/dL (0.00-0.30); Cholesterol 125 mg/dL (200); High Density Lipoprotein 43 mg/dL; Protein, Total 6.8 g/dL (6.4-8.2); Triglycerides 114 mg/dL; Very Low Density Lipoprotein 23 mg/dL (5-40)
== END | disposition home or self-care (01) ==
LOC: LAB 06:08
PROVIDERS: PCP Internal Medicine; Referring Provider Internal Medicine Cardiovascular Disease; Visit Provider Internal Medicine Cardiovascular Disease
DX: I25.10 Atherosclerotic heart disease of native coronary artery without angina pectoris (principal); E78.5 Hyperlipidemia, unspecified
CPT/HCPCS: 36415; 80061; 80076

== ENCOUNTER → 2022-04-07 | Outpatient (CLI) | payer MEDICARE, SELFPAY ==
--- NOTE | 2022-04-07 19:51 | STRESSREP_ITS ---
Stress Test Report Exercise myocardial perfusion stress test. 76-year-old man with a history of coronary bypass surgery for evaluation. Resting EKG demonstrates normal sinus rhythm with a rate of 48 bpm normal intervals are noted resting blood pressure is 122/74 mmHg. The patient exercised according to the regular Fabien protocol for total duration of 12 gilbert austyn. Patient completed stage IV of the Fabien protocol. The maximum heart rate attained was 151 bpm which was 103% of max impacted heart rate the maximum workload was 13.4 metabolic equivalents. At rest there were no ST or T wave changes noted suggest ischemia and at peak exercise upsloping ST changes were noted which did not meet the criteria for ischemia. No clinical angina was noted. The peak blood pressure was 160/70 mmHg. Myocardial perfusion protocol. 11.5 mCi of technetium 99m sestamibi was injected at rest. The patient exercised according to regular Fabien protocol for 12 minutes and at peak exercise 33.3 mCi of technetium 99m sestamibi was injected stress images were obtained stress and rest images were reconstructed and calm. In the short axis vertical long and horizontal long axis. Gated images were also obtained. Perfusion SPECT analysis: Review of the stress images demonstrate normal uptake of tracer noted in all areas of the myocardium. The resting images similar demonstrate normal uptake of tracer noted in all areas of the myocardium. No areas of reversibility are noted to suggest ischemia and no previous infarct is noted. Gated SPECT analysis: The gated ejection fraction is 67%. Conclusion: Normal exercise myocardial perfusion stress test at a high workload. Preserved ejection fraction. Excellent function aerobic capacity.
== END | disposition home or self-care (01) ==
LOC: CVS 06:42
PROVIDERS: PCP Internal Medicine; Referring Provider Internal Medicine Cardiovascular Disease; Visit Provider Internal Medicine Cardiovascular Disease
DX: I25.10 Atherosclerotic heart disease of native coronary artery without angina pectoris (principal); Z95.1 Presence of aortocoronary bypass graft
CPT/HCPCS: 78452; 93017; A9500; A4216

== ENCOUNTER → 2022-08-19 | Outpatient (CLI) | payer MEDICARE, SELFPAY | END | disposition home or self-care (01) | LOC: LAB 06:41 | PROVIDERS: PCP Internal Medicine; Visit Provider Urology | DX: Z12.5 Encounter for screening for malignant neoplasm of prostate (principal) | CPT/HCPCS: 36415; 84153; G0103 ==

== ENCOUNTER → 2023-03-04 | Outpatient (CLI) | payer MEDICARE, SELFPAY ==
[2023-03-04 07:35] LABS: Hematocrit 44.9 % (40-54); Hemoglobin 14.6 g/dL (13.0-16.5); Mean Corp Hgb Conc 32.5 g/dL (32-36); Mean Corpuscular Hgb 29.1 pg (27.0-32.0); Mean Corpuscular Volume 89.4 fL (80-94); Mean Platelet Vol. 11.1 fl (6.2-12.0); Platelet Count 201 K/mm3 (150-450); RBC Distribution Width SD 45.8 fl (35.1-43.9); Red Blood Count 5.02 M/mm3 (4.6-6.2); White Blood Count 6.9 K/mm3 (4.4-11.0)
[2023-03-04 08:20] LABS: AST(SGOT) 29 U/L (15-37); Alanine Aminotransfer ALT/SGPT 35 U/L (16-61); Albumin, Serum 2.8 g/dL (3.2-5.0); Alkaline Phosphatase 163 U/L (45-117); Anion Gap 3 (5-15); BUN 14 mg/dL (7-18); BUN/Creat Ratio 13.6 RATIO (10-20); Bilirubin, Direct 0.19 mg/dL (0.00-0.30); Calcium,Total 8.3 mg/dL (8.5-10.1); Chloride 106 mmol/L (98-107); Cholesterol 85 mg/dL (200); Creatinine, Serum 1.03 mg/dL (0.70-1.30); EST Glomerular Filtration Rate 75 mL/min (>60); Est Glom Filt Rate - Afr Amer 91 mL/min (>60); Globulin 3.9 g/dL (2.2-4.2); Glucose 101 mg/dL (74-106); High Density Lipoprotein 12 mg/dL; Potassium 4.1 mmol/L (3.5-5.1); Protein, Total 6.7 g/dL (6.4-8.2); Sodium Level 139 mmol/L (136-145); Thyroid Stim Hormone (TSH) 2.64 uIU/mL (0.358-3.74); Triglycerides 164 mg/dL; Very Low Density Lipoprotein 33 mg/dL (5-40)
== END | disposition home or self-care (01) ==
PROVIDERS: Internal Medicine Cardiovascular Disease; PCP Internal Medicine; Referring Provider Urology; Visit Provider Urology
DX: Z01.812 Encounter for preprocedural laboratory examination (principal); E78.00 Pure hypercholesterolemia, unspecified
CPT/HCPCS: 80048; 80061; 80076; 84443; 85027

== ENCOUNTER → 2023-03-10 | Outpatient (CLI) | payer SELFPAY ==
[2023-03-10 08:03] LABS: Cholesterol 103 mg/dL (200); High Density Lipoprotein 16 mg/dL; Triglycerides 173 mg/dL; Very Low Density Lipoprotein 35 mg/dL (5-40)
== END | disposition home or self-care (01) ==
LOC: LAB 06:36
PROVIDERS: PCP Internal Medicine; Referring Provider Internal Medicine Cardiovascular Disease; Visit Provider Internal Medicine Cardiovascular Disease
DX: E78.00 Pure hypercholesterolemia, unspecified (principal)
CPT/HCPCS: 36415; 80061

== ENCOUNTER → 2023-08-25 | Outpatient (CLI) | payer MEDICARE, SELFPAY ==
--- OUTSIDE RECORDS SUMMARY | 2023-08-25 06:54 | XMS RPT_ITS | CCD ---
Author Name Unknown Address [address] [place] [address] Organization [facility] Care Team Providers Care Cap And Hat Production Supervisor Name Role Phone Anastacia Srinivasan Unavailable Unavailable MD Mis, Gray Covington Unavailable Dorene RN, Natividad Castaneda Unavailable Unavailable Dorene RN, Natividad Castaneda Unavailable Unavailable Anastacia Srinivasan Unavailable Unavailable Blayne Cain MD Primary Care Provider [phone] Blayne Cain MD Primary Care Provider [phone] Blayne Cain MD Primary Care Provider [phone] BLAYNE CAIN Primary Care Unavailable BLAYNE CAIN Primary Care Unavailable BLAYNE CAIN Primary Care Unavailable BLAYNE CAIN Primary Care Unavailable BLAYNE CAIN Primary Care Unavailable Medications Current Medications Medication Drug Class(es) Dates Sig (Normalized) Sig (Original) [id number] actuat albuterol 0.09 mg/actuat metered dose inhaler (3 sources) beta2-Adrenergic Agonist Start: 08-19-2021 End: 06-01-2022 take 2 puff(s) by inhalation every four hours as needed for wheezing albuterol HFA (PROVENTIL HFA, VENTOLIN HFA) 90 mcg/actuation inhaler Indications: Viral syndrome Inhale 2 Puffs as instructed every 4 hours as needed for wheezing/shortness of breath. 1 Each 1 08/19/2021 06/01/2022 Discontinued (Course of therapy completed) Completed/Discontinued Medications Medication Drug Class(es) Dates Sig (Normalized) Sig (Original) aspirin 81 mg oral tablet (20 sources) Platelet Aggregation Inhibitor, Nonsteroidal Anti-inflammatory Drug Start: 10-02-2012 take 1 tablet by mouth once daily ASPIRIN 81 MG TABS One tablet by mouth daily ASPIRIN [id number] Mihaela Gallagher RN Problems Active Problems Problem Classification Problem Date Documented Date Episodic/Chronic Coronary atherosclerosis and other heart disease (20 sources) Atherosclerotic heart disease of [place] coronary artery without angina pectoris; Translations: [Coronary arteriosclerosis] Onset: 08-02-2005 Resolved: 04-24-2015 10-21-2015 Chronic Disorders of lipid metabolism (17 sources) Hyperlipidemia; Translations: [Other hyperlipidemia] Onset: 08-02-2005 10-02-2012 Chronic Esophageal disorders (11 sources) Gastroesophageal reflux disease; Translations: [Gastro-esophageal reflux disease without esophagitis] Onset: 03-13-2020 03-13-2020 Chronic Immunizations and screening for infectious disease (6 sources) Needs influenza immunization; Translations: [Encounter for immunization] Episodic Other connective tissue disease (2 sources) Infection of olecranon bursa of left elbow; Translations: [Other infective bursitis, left elbow] Episodic Spondylosis; intervertebral disc disorders; other back problems (2 sources) Acute low back pain; Translations: [Acute low back pain, unspecified back pain laterality, unspecified whether sciatica present] Onset: 06-14-2022 Episodic Unclassified (6 sources) Long-term drug therapy; Translations: [Long-term (current) use of other medications] Onset: 01-01-2013 Resolved: 04-07-2015 04-07-2015 Past or Other Problems Problem Classification Problem Date Documented Da te Episodic/Chronic Coronary atherosclerosis and other heart disease (5 sources) Presence of aortocoronary bypass graft; Translations: [Presence of aortocoronary bypass graft] Onset: 10-02-2012 04-24-2015 Episodic Other aftercare (9 sources) Other nursing home (current) drug therapy; Translations: [Long-term (current) use of other medications] Onset: 01-01-2013 Resolved: 04-07-2015 04-07-2015 Episodic Residual codes; unclassified (10 sources) Family history of ischemic heart disease and other diseases of the circulatory system; Translations: [Family history of ischemic heart disease and other diseases of the circulatory system] Resolved: 04-24-2015 10-01-2014 Episodic Unclassified (3 sources) Coronary artery bypass graft; Translations: [Presence of coronary angioplasty implant and graft] Onset: 10-02-2012 10-02-2012 Results Test Name Value Interpretation Reference Range Facil ity Vital Signs Date Time Vital Sign Value Performing Clinician Facility 06-01-2022 08:05-0400 Body height 167.6 cm Blayne Cain MD Work Phone: [facility] 06-01-2022 08:05-0400 Body temperature 97.39 [degF] Blayne Cain MD Work Phone: [facility] 06-01-2022 08:05-0400 Body weight 70.76 kg Blayne Cain MD Work Phone: [facility] 06-01-2022 08:05-0400 Diastolic blood pressure 62 mm[Hg] Blayne Cain MD Work Phone: [facility] 06-01-2022 08:05-0400 Heart rate 72 /min Blayne Cain MD Work Phone: [facility] 06-01-2022 08:05-0400 Respiratory rate 16 /min Blayne Cain MD Work Phone: [facility] 06-01-2022 08:05-0400 Systolic blood pressure 110 mm[Hg] Blayne Cain MD Work Phone: [facility] 05-27-2022 09:00-0400 Body temperature 97.9 [degF] Anh Older ANSWERING SERVICE OPERATOR.COOLER CONVEYOR LOADER Work Phone: [facility] 05-27-2022 09:00-0400 Body weight 71.67 kg Anh Older ANSWERING SERVICE OPERATOR.COOLER CONVEYOR LOADER Work Phone: [facility] 05-27-2022 09:00-0400 Diastolic blood pressure 66 mm[Hg] Anh Older ANSWERING SERVICE OPERATOR.COOLER CONVEYOR LOADER Work Phone: [facility] 05-27-2022 09:00-0400 Heart rate 76 /min Anh Older ANSWERING SERVICE OPERATOR.COOLER CONVEYOR LOADER Work Phone: [facility] 05-27-2022 09:00-0400 Respiratory rate 16 /min Anh Older ANSWERING SERVICE OPERATOR.COOLER CONVEYOR LOADER Work Phone: [facility] 05-27-2022 09:00-0400 Systolic blood pressure 108 mm[Hg] Anh Garces APRN.COOLER CONVEYOR LOADER Work Phone: [facility] 01-06-2017 11:47-0400 BMI (Body Mass Index) 24.83 kg/m2 [facility]astacial[facility]pez [facility] Work Phone: 01-06-2017 11:47-0400 Body weight 72.98 kg Anastacia Tomasay [facility] Work Phone: 01-06-2017 11:47-0400 BP Diastolic 62 mm[Hg] Anastacia Marthey [facility] Work Phone: 01-06-2017 11:47-0400 BP Systolic 110 mm[Hg] Ansatacia Tomasay [facility] Work Phone: 01-06-2017 11:47-0400 Height 171.45 cm Anastacia Tomasay [facility] Work Phone: 01-06-2017 11:47-0400 Pulse (Heart Rate) 64 /min Anastacia Tomasay [facility] Work Phone: 01-06-2017 11:47-0400 Respiratory Rate 17 /min Anastacia Craig [facility] Work Phone: 01-06-2017 11:47-0400 Weight 72.98 kg Anastacia Tomasay [facility] Work Phone: 04-30-2016 13:43-0400 BMI (Body Mass Index) 24.53 kg/m2 Natividad Catherine RN [facility] Work Phone: 04-30-2016 13:43-0400 Body weight 72.12 kg Natividad Catherine RN [facility] Work Phone: 04-30-2016 13:43-0400 BP Diastolic 58 mm[Hg] Natividad Catherine RN [facility] Work Phone: 04-30-2016 13:43-0400 BP Systolic 106 mm[Hg] Natividad Catherine RN [facility] Work Phone: 04-30-2016 13:43-0400 BSA (Body Surface Area) 1.85 m2 Natividad Catherine RN [facility] Work Phone: 04-30-2016 13:43-0400 Height 171.45 cm Natividad Catherine RN [facility] Work Phone: 04-30-2016 13:43-0400 Pulse (Heart Rate) 72 /min Natividad Catherine RN [facility] Work Phone: 04-30-2016 13:43-0400 Respiratory Rate 16 /min Natividad Catherine RN [facility] Work Phone: 04-30-2016 13:43-0400 Weight 72.12 kg Gray Abebe MD [facility] Work Phone: 04-24-2015 13:42-0400 Pulse Oximetry 98 % Natividad Catherine RN [facility] Work Phone: Encounters Encounter Date Encounter Type Care Provider Facility Start: 06-24-2023 End: 06-24-2023 ambulatory BLAYNE CAIN Facility:[facility] Start: 06-24-2023 End: 06-24-2023 ambulatory [facility] [place] Work Phone: [facility] Start: 03-29-2023 Telephone encounter Blayne burns MD Work Phone: [facility] [place] Procedures Date Procedure Procedure Detail Performing Clinician Start: 06-24-2023 INFLUENZA VACCINE, PRSV FREE, AGE 65+ YR, HIGH DOSE, QUADRIVALENT (FLUZONE HIGH-DOSE) Blayne Cain MD Work Phone: Start: 03-17-2023 Hemoglobin.gastrointestinal .lower [Presence] in Stool by Immunoassay [facility] Provider Start: 06-01-2022 [employer] COVID-19 BIVALENT BOOSTER VACCINE, AGE 12+ YR Blayne Cain MD Work Phone: Start: 06-01-2022 INFLUENZA SEASONAL QUADRIVALENT HIGH DOSE AGE 65+ Blayne Cain MD Work Phone: Start: 05-06-2021 Adult depression screening assessment Darshana Louis MA Start: 05-04-2021 Lipid 1996 panel - Serum or Plasma Immunization [facility] Work Phone: Start: 04-11-2017 End: 08-10-2017 *Hepatic Function Panel Karma Scruggs Start: 04-11-2017 End: 08-10-2017 Lipid panel [AGGREGATE] Karma Scruggs Start: 01-06-2017 End: 01-06-2017 Documentation of current medications Anastacia Randolphetienne Start: 01-06-2017 End: 01-06-2017 SASHA Abebe MD Start: 01-06-2017 End: 01-06-2017 Follow Up Appt 6 months Karma Scruggs Start: 10-15-2016 End: 01-06-2017 *Hepatic Function Panel Karma Scruggs Start: 10-15-2016 End: 01-06-2017 Lipid panel [AGGREGATE] Karma Srcuggs Start: 04-30-2016 End: 04-30-2016 Documentation of current medications Natividad Catherine RN Start: 04-30-2016 End: 10-05-2016 SASHA Abebe MD Start: 04-30-2016 End: 01-06-2017 Follow Up Appt 6 months Karma Scruggs Start: 04-22-2016 End: 04-29-2016 Lipid panel [AGGREGATE] Karma Scruggs Start: 10-21-2015 End: 10-21-2015 SASHA Abebe MD Start: 10-21-2015 End: 10-21-2015 Follow Up Appt 6 months Karma Scruggs Start: 10-08-2015 End: 10-09-2015 *Hepatic Function Panel Karma Scruggs Start: 10-08-2015 End: 10-09-2015 Lipid panel [AGGREGATE] Karma Scruggs Start: 04-24-2015 End: 04-24-2015 SASHA Abebe MD Start: 04-24-2015 End: 04-25-2015 Documentation of current medications Gray Abebe MD Start: 04-24-2015 End: 04-24-2015 Follow Up Appt 6 months Karma Scruggs Start: 04-07-2015 End: 04-07-2015 *Hepatic Function Panel Karma Scruggs Start: 04-07-2015 End: 04-07-2015 Lipid panel [AGGREGATE] Karma Scruggs Start: 10-02-2014 End: 10-08-2014 *Hepatic Function Panel Karma Scruggs Start: 10-02-2014 End: 10-08-2014 Lipid panel [AGGREGATE] Karma Scruggs Start: 10-01-2014 End: 10-08-2014 *Hepatic Function Panel Karma Scruggs Start: 10-01-2014 End: 10-01-2014 SASHA Abebe MD Start: 10-01-2014 End: 10-02-2014 Documentation of current medications Gray Abebe MD Start: 10-01-2014 End: 10-01-2014 Follow Up Appt 6 months Karma Scruggs Start: 10-01-2014 End: 10-08-2014 Lipid panel [AGGREGATE] Karma Scruggs Start: 11-20-2013 End: 11-27-2013 *Hepatic Function Panel Karma Scruggs Start: 11-20-2013 End: 11-27-2013 Lipid panel [AGGREGATE] Karma Scruggs Start: 09-28-2013 End: 10-05-2016 FLANGE TURNER Gray Abebe MD Start: 09-28-2013 End: 10-05-2016 Follow Up Appt 1 year Gray Abebe MD Start: 05-22-2013 End: 05-28-2013 *Hepatic Function Panel Karma Scruggs Start: 05-22-2013 End: 05-28-2013 Lipid panel [AGGREGATE] Karma Scruggs Start: 02-12-2013 End: 02-21-2013 *Hepatic Function Panel Karma Scruggs Start: 02-12-2013 End: 02-21-2013 Lipid panel [AGGREGATE] Karma Scruggs Start: 01-01-2013 End: 01-01-2013 *BMP Gray Abebe MD Start: 01-01-2013 End: 01-01-2013 *CBC with Differential Gray Abebe MD Start: 01-01-2013 End: 01-01-2013 *CRPHS - C-reactive protein, high sensitivity (hsCRP) Gray Abebe MD Start: 01-01-2013 End: 01-01-2013 *Hepatic Function Panel Karma Scruggs Start: 01-01-2013 End: 01-01-2013 Lipid panel [AGGREGATE] Karma Scruggs Start: 12-25-2012 End: 01-01-2013 Echocardiography Gray Abebe MD Start: 10-11-2012 End: 10-11-2012 FLANGE TURNER Gray Abebe MD Start: 10-11-2012 End: 10-11-2012 Follow Up Appt 6 months Karma Scruggs Start: 10-02-2012 Coronary artery bypass graft CORONARY ARTERY BYPASS GRAFT, HX OF Natividad Catherine RN Start: 08-22-1998 History of coronary artery bypass grafting S/P CABG x 1 Darshana Louis MA Plan of Treatment Date Care Activity Detail Author Start: 09-13-2032 Urine microalbumin profile [facility] Start: 05-04-2026 Lipid 1996 panel - Serum or Plasma Lipid Screening [facility] Start: 05-04-2026 LIPID SCREEN LIPID SCREEN [facility] Start: 03-17-2024 COLORECTAL CANCER SCREENING COLORECTAL CANCER SCREENING [facility] Start: 03-17-2024 FECAL OCCULT BLOOD FECAL OCCULT BLOOD [facility] Start: 03-09-2024 DIABETES SCREEN DIABETES SCREEN [facility] Start: 03-09-2024 Diabetes Screening Diabetes Screening [facility] Start: 06-01-2023 ANNUAL PCP TEAM CHRONIC DISEASE VISIT ANNUAL PCP TEAM CHRONIC DISEASE VISIT [facility] Start: 05-27-2023 ANNUAL PCP TEAM CHRONIC DISEASE VISIT ANNUAL PCP TEAM CHRONIC DISEASE VISIT [facility] Start: 05-06-2023 COLOGUARD (FIT-DNA) COLOGUARD (FIT-DNA) [facility] Start: 05-06-2023 COLORECTAL CANCER SCREENING COLORECTAL CANCER SCREENING [facility] Start: 04-22-2023 Covid-19 Vaccine ( season) Covid-19 Vaccine () [facility] Start: 04-22-2023 Influenza vaccination INFLUENZA (#1) [facility] Start: 03-16-2023 Hepatitis B surface antibody level LDL CHOLESTEROL [facility] Start: 11-30-2022 SHINGRIX VACCINE (2 of 2) SHINGRIX VACCINE (2 of 2) [facility] Start: 11-19-2022 Hzv zoster vacc recombinant adjuvanted im njx ZOSTER VACC RECOMBINANT,IM Immunization/Injection Routine Need for vaccination Expected: 11/19/2022 (Approximate) [facility] Work Phone: Immunizations Immunization Date Immunization Notes Care Provider Alma bhatia 06-24-2023 influenza (HD-IIV4) vaccine, age 65+ yr, high dose, quadrivalent, PF (FLUZONE HIGH-DOSE) Immunization [place] Work Phone: [facility] Work Phone: 12-20-[address] Work Phone: [facility] Work Phone: 10-05-[address] Work Phone: [facility] Work Phone: 09-20-2022 zoster vaccine recombinant Blayne Cain MD Work Phone: [facility] Work Phone: 09-13-2022 tetanus toxoid, redu rozina diphtheria toxoid, and acellular pertussis vaccine, adsorbed Ct Nurse Work Phone: [facility] Work Phone: 06-29-2022 pneumococcal (PCV20) vaccine, 20 valent (PREVNAR 20) Blayne Cain MD Work Phone: [facility] Work Phone: 06-01-2022 COVID-19 booster vaccine, age 12+ yr, bivalent ([employer]-BIONTECH) Blayne Cain MD Work Phone: [facility] Work Phone: 06-01-2022 influenza, high-dose , quadrivalent vaccine (FLUZONE HIGH DOSE QUADRIVALENT) Blayne Cain MD Work Phone: [facility] Work Phone: 12-16-2020 COVID-19 vaccine, ag e 12+ yr (PFIZER-BIONTECH - PURPLE TOP) Darshana Louis [facility] Work Phone: 10-23-2020 COVID-19 vaccine, ag e 12+ yr ([employer]-Red-rabbit - PURPLE TOP) Darshana Louis MA [facility] Work Phone: 04-23-2020 pneumococcal polysaccharide vaccine, 23 valent Darshana Louis MA [facility] Work Phone: 04-15-2006 hepatitis A vaccine, unspecified formulation Darshana Louis MA [facility] Work Phone: Payers Date Payer Category Payer Medicare HU[employer]NA MEDICARE HU[employer]NA MEDICARE PPO [id number] 2021-Present [phone] [address] [address] [place] [address] PPO [id number] 2017 Medicare [id number] 2017 Private Health Insurance [id number] Social History Date Type Detail Facility Start: 04-23-2020 Tobacco smoking status NHIS Ex-smoker [facility] Start: 08-19-2021 End: 06-01-2022 Alcohol intake Current drinker of alcohol (finding) [facility] Start: 08-19-2021 End: 06-24-2023 Alcohol intake [facility] Start: 05-06-2021 End: 05-26-2022 History SDOH Alcohol Frequency 4 [facility] Start: 05-06-2021 End: 05-26-2022 History SDOH Alcohol Std Drinks 1 [facility] Start: 05-08-2021 History SDOH Alcohol Comment with evening meal. [facility] Start: 05-06-2021 End: 05-26-2022 History SDOH Social Connections Phone 5 [facility] Start: 05-06-2021 End: 05-26-2022 History SDOH Social Connections Judaism 2 [facility] Start: 05-06-2021 End: 05-26-2022 History SDOH Social Connections Meetings 3 [facility] Start: 05-06-2021 End: 05-26-2022 History SDOH Physical Activity DPW 6 [facility] Start: 05-06-2021 Education 16 [facility] Start: 1945 Sex Assigned At Male [facility] History of tobacco use Current smoker [facility] Work Phone: History of tobacco use Cigarette Smoker C [facility] Work Phone: Start: 04-23-2020 Tobacco use and exposure Smokeless tobacco non-user [facility] Work Phone: Start: 05-26-2022 History SDOH Social Connections Judaism 98 [facility] Start: 05-16-2022 End: 05-26-2022 Exposure to SARS-CoV-2 (event) Unable to assess [facility] Work Phone: Start: 05-22-2022 End: 06-01-2022 Exposure to SARS-CoV-2 (event) Not sure [facility] Work Phone: Start: 05-26-2022 End: 06-24-2023 Social connection and isolation panel [facility] How often do you att end christian or mandaeism services? Patient refused [facility] Do you belong to any clubs or organizations such as christian groups, unions, fraternal or athletic groups, or school groups? Yes [facility] Are you now , , , , never or living with a partner? [facility] How often to you hav e a drink containing alcohol? 2-3 time sa week [facility] How many standard dr inks containing alcohol do you have on a typical day? 1 or 2 [facility] How often do you hav e 6 or more drinks on 1 occasion? Never [facility] Do you feel stress - tense, restless, nervous, or anxious, or unable to sleep at night because your mind is troubled all the time - these days [OSQ] Not at all [facility] (I/We) worried wheth er (my/our) food would run out before (I/we) got money to buy more. Never true [facility] In the past 12 month s, was there a time when you were not able to pay the mortgage or rent on time? No [facility] Start: 03-12-2020 Gender identity Identifies as male gender (finding) [facility] Start: 03-12-2020 Sexual orientation Heterosexual (finding) [facility] Clinical Notes 11-13-2007 to 03-29-2023 Telephone Encounter - Meaghan Jordan LPN - 03/29/2023 1:27 PM EDTHemackenzie Caba LPN - 12/20/2022 2:56 PM EDTTelephone Encounter - Vikki Caba LPN - 09/20/2022 9:06 AM EST Note Date & Type Note Facility 03-29-2023 Miscellaneous Notes Pt mailed to pcp FIT test completed 03/17/23 with brooke. documented in this encounter [facility] 12-20-2022 Note HNO ID: [id number] Author: Vikki Caba LPN Service: ? Author Type: ? Type: Progress Notes Filed: 12/20/2022 2:57 PM Note Text: Patient presents for Shingrix vaccine. Denies any problems at this time. Tolerated injection well. Vikki Caba LPN [facility] 12-20-2022 History of Presen t illness Narrative Patient presents for Shingrix vaccine. Denies any problems at this time. Tolerated injection well. Vikki Caba LPN documented in this encounter [facility] 10-05-2022 Note HNO ID: [id number] Author: Vikki Caba LPN Service: ? Author Type: ? Type: Progress Notes Filed: 10/05/2022 11:36 AM Note Text: Patient presents for Shingrix vaccine. Denies any problems at this time. Tolerated injection well. Vikki Caba LPN [facility] 09-20-2022 Miscellaneous Notes Patient scheduled for nurse visit 10/05/22 to receive Shingrix vaccine. Please place order at this time. Vikki Caba LPN documented in this encounter [facility] 09-13-2022 Note HNO ID: [id number] Author: Vikki Caba LPN Service: ? Author Type: ? Type: Progress Notes Filed: 09/13/2022 9:22 AM Note Text: Patient presents for TDAP vaccine. Denies any problems at this time. Tolerated injection well. Vikki Caba LPN [facility] 09-13-2022 History of Presen t illness Narrative Patient presents for TDAP vaccine. Denies any problems at this time. Tolerated injection well. Vikki Caab LPN documented in this encounter [facility] 08-30-2022 Miscellaneous Notes Patient scheduled for nurse visit 09/13/22 to receive TDAP. Please place order at this time. Vikki Caba LPN documented in this encounter [facility] 08-24-2022 Note HNO ID: [id number] Author: Radha Law PT Service: ? Author Type: Physical Therapist Type: Progress Notes Filed: 08/24/2022 8:27 AM Note Text: 08/24/2022 [facility]TS [facility]ER[facility] PHYSICAL THERAPY DISCONTINUANCE OF CARE Plan of Care Period: Start of Care Date: 06/14/22 Last Visit Date: 06/14/2022 Therapy Program: Patient did not return for follow up care . Pt called and stated doing well with exercise. Pleased with outcome Please refer to last visit note for interventions provided for this episode of care. Assessment: Unable to formally assess goal achievement. Reason for Discontinuation of Care: Patient has not returned to therapy or scheduled additional follow-up appointments. Radha Law, VIJAYA [facility] 06-29-2022 Note HNO ID: [id number] Author: Vikki Caba LPN Service: ? Author Type: ? Type: Progress Notes Filed: 06/29/2022 1:53 PM Note Text: Patient presents for Pneumococcal vaccine. Denies any problems at this time. Tolerated injection well. Vikki Caba LPN [facility] documented as of this encounter (statuses as of 08/30/2022) [facility] History of Past illness Narrative* Problem Noted Date Resolved Date Acute low back pain 06/14/2022 08/24/2022 Cough 11/13/2007 10/14/2016 documented as of this encounter (statuses as of 09/13/2022) [address]24-2022 History of Past illness Narrative* Problem Noted Date Resolved Date Acute low back pain 06/14/2022 08/24/2022 Cough 11/13/2007 10/14/2016 documented as of this encounter (statuses as of 10/14/2022) [address]-2022 History of Past illness Narrative* Problem Noted Date Resolved Date Acute low back pain 06/14/2022 08/24/2022 Cough 11/13/2007 10/14/2016 documented as of this encounter (statuses as of 12/21/2022) [facility] History of Past illness Narrative* Problem Noted Date Diagnosed Date Resolved Date Acute low back pain 06/14/2022 08/24/19 Cough 11/13/2007 10/14/2016 documented as of this encounter (statuses as of 03/08/2023) [address]-2022 History of Past illness Narrative* Problem Noted Date Diagnosed Date Resolved Date Acute low back pain 06/14/2022 08/24/19 Cough 11/13/2007 10/14/2016 documented as of this encounter (statuses as of 03/29/2023) [address]-2022 History of Past illness Narrative* Problem Noted Date Diagnosed Date Resolved Date Acute low back pain 06/14/2022 08/24/19 Cough 11/13/2007 10/14/2016 documented as of this encounter (statuses as of 06/25/2023) [address]-2022 History of Present illness Narrative* Radha Law, PT - 06/14/2022 12:47 PM EDT Episode Visit Count: 1 Therapist That Will Accept/Oversee The Plan Of Care: Radha Law PT Start of Care Date: 06/14/22 Onset Date: 05/21/22 Plan of Care Certification Date: 06/14/22 Next Certification Due Date: 07/26/22 REHABILITATION AND SPORTS THERAPY PHYSICAL THERAPY EVALUATION PLAN OF CARE: Assessment: Brianna Garcia presents with chief complaint of intermittent pain in area of right greater trochanter that interferes with nothing . He presents with impairments in flexibility, independence in exercise, range of motion, and symptom management. PROMIS (Patient-Reported Outcomes Measurement Information System) scores were reviewed and all domains identified as within normal limits. Prognosis for therapy is Excellent due to: current objective clinical presentation . He will benefitfrom skilled therapy services to meet the goals established for this plan of care as noted below. Goals for Episode of Care: created on 06/14/22 through 07/26/22 [place] in home exercise program. Patient will increase flexibility of I-T band to equal unaffected extremity/side to improve mechanics and decrease pain. Patient Goals: learn exs for right hip Planned Interventions, Frequency, and Duration: Current Frequency: 1x/week (as needed. Pt to call .) Duration: 4 weeks Total Number of Visits Planned: 4 Planned Treatment Interventions: Therapeutic exercise (76928);Neuromuscular re- education (58660);Manual therapy ([id number]);Self-intermediate management ([id number]);Patient/Family/Caregiver Education PLAN FOR NEXT VISIT: Will upgrade core and hip iff needed , Check I-T band Patient demonstrates good understanding of plan of care and treatment. The above goals and plan of care were discussed and agreed upon by patient/family. SUBJECTIVE: Brianna Garcia is a 76 year old male seen today for Pt had episode of back pain and sciatica which responded to María Elena exs and now better. does have occassional hip pain right side in area of greater trochanter. 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 Hobbies / Interests: hiking, wine Intake Information: Prescription present Spine History Sleeping Position: Side lying right Sleep Affected by Pain: Not affected by pain Pain: Pain Pain Level: 0 Description: (no pain in back or hip currently) Post Treatment Pain Post Treatment Pain Level: No Change Post Treatment Pain Location: Hip - Right PROMIS Scales Higher is Better 05/26/2022 05/26/2022 06/13/2022 Phys Func - Score - - 48 (within normal limits) Phys Func - Percentile - - 42 % GH Physical - Score - 57.7 (Very Good) - GH Physical - Percentile 78 % 78 % - GH Mental - Score - 56 (Excellent) - GH Mental - Percentile 73 % 73 % - Self-Eff Symptom - Score - - 43 (Average) Self-Eff Symptom - Percentile - - 24 % T-scores: mean of general population = 50. 5 points is clinically meaningfully difference Percentiles provide an indication of how the patient's score ranks in relation to the general population. Higher percentile rankings indicate better function/quality of life. 50th percentile is the average of the general population and indicates half of respondents had a worse score. T-scores: mean of general population = 50. 5 points is clinically meaningfully difference Percentiles provide an indication of how the patient's score ranks in relation to the general population. Higher percentile rankings indicate better function/quality of life. 50th percentile is the average of the general population and indicates half of respondents had a worse score. OBJECTIVE MEASURES WITH LEVEL OF FUNCTION: Posture / Alignment Posture: Good Sitting Posture: Good Hip Observations R Hip Palpation Tenderness: Greater trochanter;TFL (Tensor fasciae latae) Lumbar Spine AROM Lumbar Flexion: Normal Lumbar Extension: Minimal limitation LE AROM R LE AROM: WNL L LE AROM: WNL LE Flexibility Flexibility: IT Band Flexibility R IT Band Flexibility: Moderate L IT Band Flexibility: mild LE Strength Trunk Strength: 5/5 R LE Strength: 5/5 L LE Strength: 5/5 Functional Strength Functional Strength: WNL Gait Gait: Independent Education: Education Learning Preferences: Demonstration;Explanation;Performance;Printed Materials Barriers: None Learning/educational needs: Home exercise program;Plan of Care Education Provided: Yes, see treatment interventions for education provided Education Provided To: Patient Education Mode/Type: Demonstration;Explanation/Discussion;Literature/Printed Materials;Performance Response to Education/Teach Back: States/Identifies;Return Demonstration TREATMENT: PT Treatment Interventions: Therapeutic Exercise Evaluation Therapeutic Exercise: 1: hooklying TA with opposite arm and leg lifts 1x10 2: standing hip abduction B 3: standing I-T band stretch 30 sec x3 4: education in anatomy and use of lacrosse ball to greater trochanter -I -T band and proper sleeping posture Skilled Intervention: Patient was educated in proper exercise technique and purpose for exercises. Skilled judgment was provided in selection of appropriate interventions. Provided written instruction for home exercise program to facilitate proper performance and compliance. Correct performance of therapeutic exercises was facilitated with verbal and visual cuing. Educated patient on rationale for performing exercises in regards to ROM and function . Patient education as noted. Home Exercise Program Assigned: 1: as outlined above Billing * Evaluation Low Complexity: 1 Unit Therapeutic Exercise Treatment Minutes: 20 Total Treatment Time Minutes (timed/untimed): 40 Radha Law PT documented in this encounterWadsworth[facility]10-[facility] History of Present illness Narrative* Blayne Cain MD - 06/01/2022 8:57 AM EDT This note was created using [employer]. Subjective Brianna Garcia is a 76 year old male. He was seen for septic olecranon bursitis of the left elbow and this has improved a lot. Review of Systems Constitutional: Negative for chills, fatigue and fever. Musculoskeletal: Negative for arthralgias. Skin: Negative for color change and wound. ACTIVE PROBLEM LIST Atherosclerosis of [place] Coronary Artery of [place] Heart Without Angina Pectoris Other Hyperlipidemia S/P Cabg X 1 Gastroesophageal Reflux Disease Current Outpatient Medications Medication Sig doxycycline (VIBRA-TABS) 100 mg tablet Take 1 tablet by mouth twice daily for 10 days. amoxicillin-clavulanic acid (AUGMENTIN) 875-125 mg per tablet Take 1 tablet by mouth twice daily for 10 days. atorvastatin (LIPITOR) 40 mg tablet Take 40 mg by mouth daily at bedtime. [facility] ASPIRIN 81 MG TAB Take one (1) tablet daily . No current facility-administered medications for this visit. Objective BP 110/62 (BP Site: Left Arm, BP Position: Sitting, BP Cuff Size: Large Adult) Pulse 72 Temp 36.3 C (97.4 F) (Temporal) Resp 16 Ht 167.6 cm (5' 6 ) Wt 70.8 kg (156 lb) BMI 25.18 kg/m Physical Exam Constitutional: Appearance: Normal appearance. Musculoskeletal: Left elbow: Normal range of motion. No tenderness. Comments: Olecranon bursa effusion. No inflammatory signs. Assessment and Plan 1. Medicare annual wellness visit, subsequent - ICD9: V70.0, ICD10: Z00.00 (primary diagnosis) See wellness note. - DEPRESSION SCREENING/ASSESSMENT - ADVANCE CARE PLAN DISCUSSION 2. Need for influenza vaccination - ICD9: V04.81, ICD10: Z23 - INFLUENZA SEASONAL QUADRIVALENT HIGH DOSE AGE 65+ 3. Need for COVID-19 vaccine - ICD9: V04.89, ICD10: Z23 - PFIZER-BIONTECH COVID-19 BIVALENT BOOSTER VACCINE, AGE 12+ YR 4. Septic olecranon bursitis of left elbow - ICD9: 726.33, 041.9, ICD10: M71.122 Resolving. Call in 2-4 weeks if effusion not resolving. Drainage may be considered. 5. Other hyperlipidemia - ICD9: 272.4, ICD10: E78.49 Controlled. 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 Medications reviewed: Yes FAMILY HISTORY Problem Relation Age of Onset Coronary Artery Disease Mother Coronary Artery Disease Father Diabetes Sister Hyperlipidemia Brother Psychiatry Brother SOCIAL HISTORY: Social History Tobacco Use Smoking status: Former Years: 0.50 Types: Cigarettes Smokeless tobacco: Never Tobacco comments: for 6 months in college Substance Use Topics Alcohol use: Yes Alcohol/week: 7.0 standard drinks Types: 7 Glasses of Wine (5oz) per week Comment: with evening meal. Drug use: No Brianna likes to exercise by walking 2 miles daily. He watches his diet for sodium, low fat and lowcholesterol most of the time. List of current specialists seen: Dr. Abebe, cardiology. Dr. Ingram, urology. Dr. Grover, ophthalmology. End of Live Planning discussed including patients advanced directive wishes: Yes I am willing to follow Brianna's advanced directives. Copy needed. PHQ-2 / Depression screen He in the past two weeks denies having felt down, depressed, hopeless, or with little interest or pleasure in doing things. Functional Ability/Safety Screen 1. Was the patient's timed Up and Go test unsteady or longer than 30 seconds? No 2. Does the patient need help with the phone, transportation, shopping,preparing meals, housework, laundry, medications or managing money? No 3. Does your home have rugs in the hallway, lack of grab bars in the bathroom, lack of handrails onthe stairs or have poor lighting? No Hearing Evaluation: normal PHYSICAL EXAM BP 110/62 (BP Site: Left Arm, BP Position: Sitting, BP Cuff Size: Large Adult) Pulse 72 Temp 36.3 C (97.4 F) (Temporal) Resp 16 Ht 167.6 cm (5' 6 ) Wt 70.8 kg (156 lb) BMI 25.18 kg/m Alert and oriented X 3: YES Body mass index is 25.18 kg/m . Visual acuity: OD: 20/40 OS: 20/30 OU: 20/30 Mini Cog 5/5 ASSESSMENT/PLAN: 76 year old male The following prevention plan was discussed during the office visit and provided to the patient: - Counseled on healthy diet and regular exercise - Vaccines recommended COVID-19, Pneumococcal, Influenza, Shingrix at pharmacy, and Tdap at pharmacy - Depression screening Blayne Cain MD documented in this encounterWadsworth-[facility]10-11-[facility]22 Instructions* Patient Instructions* Kay Tai LPN - 06/01/2022 8:33 AM EDT DTAP,TDAP,TD(1 - Tdap) Never done SHINGRIX VACCINE(1 of 2) Never done ADVANCE DIRECTIVE DISCUSSION Never done Schedule PREVNAR 20 in 2-4 weeks. documented in this encounterWadsworth-[facility]ittman [facility]10-06-2022 History of Present illness Narrative* Anh Garces, ANSWERING SERVICE OPERATOR.COOLER CONVEYOR LOADER - 05/27/2022 9:08 AM EDT CC: Patient presents with: Pain (Elbow Pain): L elbow infection HPI Brianna Garcia is a 76 year old male who presents today for left elbow edema and redness. Was in [place] beginning of April and had multiple mosquito bites. 2 weeks ago went to [place] and noticed his left elbow was swelling and getting red. Was prescribed Bactrim DS for bursitis thereby a friend. He finished the antibiotic Tuesday night. Per patient it had improved but 3-4 days agothe swelling and redness returned. States it is not as severe as start of infection. Denies injury, drainage, pain, weakness, fever, chills, chest pain, shortness of breath, or decreased sensation. REVIEW OF SYSTEMS General: no fevers, no chills, no night sweats, no recurrent infections, no change in appetite, no change in energy, and no significant changes in weight Respiratory: no cough, no wheezing, no shortness of breath, no hemoptysis Cardiovascular: no chest pain, no chest pressure, no palpitations, and no swelling Musculoskeletal: Negative for joint pain or swelling, back pain or muscle pain outside of Left elbow discussed in HPI Skin: Negative for lesions, rash, and itching Neurologic: No headache, weakness, numbness, tingling dizziness, memory loss, syncope. 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 MEDICATIONS albuterol HFA (PROVENTIL HFA, VENTOLIN HFA) 90 mcg/actuation inhaler Inhale 2 Puffs as instructed every 4 hours as needed for wheezing/shortness of breath. atorvastatin (LIPITOR) 40 mg tablet Take 40 mg by mouth daily at bedtime. [facility] ASPIRIN 81 MG TAB Take one (1) tablet daily . FAMILY HISTORY Problem Relation Age of Onset Coronary Artery Disease Mother Coronary Artery Disease Father Diabetes Sister Hyperlipidemia Brother Psychiatry Brother Social History Tobacco Use Smoking status: Former Years: 0.50 Types: Cigarettes Smokeless tobacco: Never Tobacco comments: for 6 months in college Substance Use Topics Alcohol use: Yes Alcohol/week: 7.0 standard drinks Types: 7 Glasses of Wine (5oz) per week Comment: with evening meal. Drug use: No PHYSICAL EXAM BP 108/66 Pulse 76 Temp 36.6 C (97.9 F) (Temporal) Resp 16 Wt 71.7 kg (158 lb) BMI 24.75 kg/m General Appearance: well appearing, in no acute distress, alert Eyes: conjunctiva pink and moist, no icterus, sclera white, non-injected Lungs: Lungs clear to auscultation. No wheezing, rhonchi, rales. Heart: RRR without murmur, gallop, or rubs. No ectopy BUE Extremities: No deformities, edema, skin discoloration, clubbing or cyanosis. Good capillary refill. Musculoskeletal: Left elbow with non pitting edema, increased warmth, and quarter size erythematic area to dorsal side of elbow. Health maintenance reviewed with patient: DTAP,TDAP,TD(1 - Tdap) Never done SHINGRIX VACCINE(1 of 2) Never done PNEUMOCOCCAL: 65+(2 - PCV) due on 04/23/2021 ADVANCE DIRECTIVE DISCUSSION Never done DEPRESSION ASSESSMENT Never done COVID-19 VACCINE(4 - Booster for Pfizer series) due on 09/26/2021 INFLUENZA(1) Never done ANNUAL PCP TEAM CHRONIC DISEASE VISIT due on 05/08/2022 LDL CHOLESTEROL due on 05/04/2022 COLORECTAL CANCER SCREENING due on 05/06/2023 DIABETES SCREEN due on 03/09/2024 LIPID SCREEN due on 05/04/2026 ABDOMINAL AORTIC ANEURYSM SCREENING Completed HEPATITIS C SCREENING Completed DATA REVIEWED: No new labs ASSESSMENT/PLAN: 1. Septic olecranon bursitis of left elbow - ICD9: 726.33, 041.9, ICD10: M71.122 - reddened are outlined with skin marker - discussed with patient for increased redness, fever, chills, pain, or other concerns for increasing infection he needs to go to ER for IV antibiotics - DOXYCYCLINE HYCLATE 100 MG TABLET - AMOXICILLIN 875 MG-POTASSIUM CLAVULANATE 125 MG TABLET - CONSULT TO ORTHOPAEDICS - keep upcoming appointment with Dr. Cain next week. Prescription instructions reviewed with patient as applicable. Potential red flag symptoms discussed with the patient. Reviewed appropriate action plan to take if red flag symptoms occur. Patient agreeable to treatment plan. Anh Garces APRN.CNP documented in this encounterWadsworth-[facility]ittman [facility]05-06-2022 History of Present illness Narrative* Darshana Louis MA - 12/25/2021 2:24 PM EDT POPULATION HEALTH NAVIGATION OUTREACH Action/FYI AD discussed but unsure of outcome, colonoscopy, follow up around 05/08/2022 Pt identified by name and : NO Outreach Outcome/Action MyChart message sent Reason for Outreach Care Gap or Scheduling/Wellness visits Payer: Payor: [employer] MEDICARE / Plan: [employer] MEDICARE PPO / Product Type: PPO / Care Gap Reviewed:: Annual Wellness visit Follow-up appointment Colorectal Cancer Screening Reminder: Reminder note to check Health Maintenance for items below Health Maintenance items due: DTAP,TDAP,TD(1 - Tdap) Never done COLORECTAL CANCER SCREENING Never done SHINGRIX VACCINE(1 of 2) Never done ADVANCE DIRECTIVE DISCUSSION Never done Message Sent to Practice: No Navigation Signature: Darshana Louis MA December 25, 2021 2:27 PM documented in this encounterWadsworth-[facility]03-24-[facility] History of Past illness Narrative* Problem Noted Date Resolved Date Cough 11/13/2007 10/14/2016 documented as of this encounter (statuses as of 12/25/2021) [facility] of Past illness Narrative* Problem Noted Date Resolved Date Cough 11/13/2007 10/14/2016 documented as of this encounter (statuses as of 05/27/2022) [facility] of Past illness Narrative* Problem Noted Date Resolved Date Cough 11/13/2007 10/14/2016 documented as of this encounter (statuses as of 06/01/2022) [facility] of Past illness Narrative* Problem Noted Date Resolved Date Cough 11/13/2007 10/14/2016 documented as of this encounter (statuses as of 06/14/2022) [facility] note* Diagnosis Septic olecranon bursitis of left elbow- Primary [facility] Diagnosis Medicare annual wellness visit, subsequent- Primary Routine general medical examination at a health care facility Need for influenza vaccination Need for prophylactic vaccination and inoculation against influenza Need for COVID-19 vaccine Septic olecranon bursitis of left elbow Other hyperlipidemia documented in this encounter [facility]* Diagnosis Acute low back pain, unspecified back pain laterality, unspecified whether sciatica present documented in this encounter [facility]* Diagnosis Encounter for immunization- Primary Need for other specified prophylactic vaccination against single bacterial disease documented in this encounter [facility]* Diagnosis Encounter for immunization- Primary Need for other specified prophylactic vaccination against single bacterial disease documented in this encounter [facility] note* Diagnosis Need for vaccination- Primary Need for prophylactic vaccination and inoculation against unspecified single disease documented in this encounter [facility] Summary Purpose Family History No Family History Records FoundNo Family History Records Found Advance Directives No Advanced Directives Records FoundDocuments on File Type Date Recorded Patient Radiology Therapist Expl anation Advance Directive(s) 06/08/2022 2:03 PM Documents on File Type Date Recorded Patient Radiology Therapist Expl anation Advance Directive(s) 06/08/2022 2:03 PM Reason for Referral Specialty Diagnoses / Procedures Referred By Florentino lopez Referred To Contact Orthopedics Diagnoses Septic olecranon bursitis of left elbow Procedures CONSULT TO ORTHOPAEDICS OFFICE/OUTPATIENT NEW HIGH MDM 60-74 MINUTES Older, Anh, ANSWERING SERVICE OPERATOR.COOLER CONVEYOR LOADER [address] [place] [address] Referral ID Status Reason Start Date Expiration Date Visits Requested Visits Authorized [id number] Authorized PCP Requested Referral 05/27/2022 05/27/2023 1 1 Specialty Diagnoses / Procedures Referred By Contac t Referred To Contact [facility] Diagnoses Acute low back pain, unspecified back pain laterality, unspecified whether sciatica present Procedures PT REHAB FOLLOW UP ORDER THERAPEUTIC EXERCISES RE, EA 15 MIN. Pt [facility], [facility] [address] [place] [address] [facility] [place] [address] [place] [address] Referral ID Status Reason Start Date Expiration Date Visits Requested Visits Authorized [id number] Pending Review PCP Requested Referral Auto-Generate d Referral 09/12/2022 1 1 Additional Source Comments (unrecognized sect ion and content) No Status Records FoundNo Status Records Found INFORMATION SOURCE (unrecogn ized section and content) DATE CREATED AUTHOR AUTHOR'S ORGANIZ ATION 06/25/2023 [facility] Source Comments (unrecognize d section and content) In the event this informatio n is protected by the Federal Confidentiality of Alcohol and Drug Abuse Patient Records regulations: The Federal rules restrict any use of the information to criminally investigate or prosecute any alcohol or drug abuse patient.[facility] HospitalIn the event this information is protected by the Federal Confidentiality of Alcohol and Drug Abuse Patient Records regulations: The Federal rules restrict any use of the information to criminally investigate or prosecute any alcohol or drug abuse patient.[facility] HospitalIn the event this information is protected by the Federal Confidentiality of Alcohol and Drug Abuse Patient Records regulations: The Federal rules restrict any use of the information to criminally investigate or prosecute any alcohol or drug abuse patient.[facility] HospitalIn the event this information is protected by the Federal Confidentiality of Alcohol and Drug Abuse Patient Records regulations: The Federal rules restrict any use of the information to criminally investigate or prosecute any alcohol or drug abuse patient.[facility] HospitalIn the event this information is protected by the Federal Confidentiality of Alcohol and Drug Abuse Patient Records regulations: The Federal rules restrict any use of the information to criminally investigate or prosecute any alcohol or drug abuse patient.[facility] HospitalIn the event this information is protected by the Federal Confidentiality of Alcohol and Drug Abuse Patient Records regulations: The Federal rules restrict any use of the information to criminally investigate or prosecute any alcohol or drug abuse patient.[facility] HospitalIn the event this information is protected by the Federal Confidentiality of Alcohol and Drug Abuse Patient Records regulations: The Federal rules restrict any use of the information to criminally investigate or prosecute any alcohol or drug abuse patient.[facility] HospitalIn the event this information is protected by the Federal Confidentiality of Alcohol and Drug Abuse Patient Records regulations: The Federal rules restrict any use of the information to criminally investigate or prosecute any alcohol or drug abuse patient.[facility] HospitalIn the event this information is protected by the Federal Confidentiality of Alcohol and Drug Abuse Patient Records regulations: The Federal rules restrict any use of the information to criminally investigate or prosecute any alcohol or drug abuse patient.[facility] HospitalIn the event this information is protected by the Federal Confidentiality of Alcohol and Drug Abuse Patient Records regulations: The Federal rules restrict any use of the information to criminally investigate or prosecute any alcohol or drug abuse patient.[facility] HospitalIn the event this information is protected by the Federal Confidentiality of Alcohol and Drug Abuse Patient Records regulations: The Federal rules restrict any use of the information to criminally investigate or prosecute any alcohol or drug abuse patient.[facility] Reason for Visit (unrecogniz ed section and content) Reason Comments Pain (Elbow Pain) L elbow infection Reason Onset Date Comments Medicare Wellness Exam Immunizations 06/01/2022 Flu vaccination Reason Comments PT Eval Specialty Diagnoses / Procedures Referred By Contac t Referred To Contact PHYSICAL THERAPY Diagnoses Acute low back pain, unspecified back pain laterality, unspecified whether sciatica present Procedures CONSULT TO PHYSICAL THERAPY PHYSICAL THERAPY EVALUATION HIGH COMPLEX 45 MINS Blayne Cain MD [address] [place] [address] Pt [facility] [address] [place] [address] Referral ID Status Reason Start Date Expiration Date V isits Requested Visits Authorized [id number] Closed Auto-Generate d Referral 08/22/2021 08/21/2022 1 1 Reason Comments Orders Reason Comments Imm/Inj Reason Comments Results Care Teams (unrecognized sec tion and content) [employer] Supervisor Relationship Specialty Start Date End Date Blayne Cain MD [address] [place] [address] PCP - General Internal Medicine 06/11/20 [employer] Production Supervisor Relationship Specialty Start Date End Date Blayne Cain MD [address] [place] [address] PCP - General Internal Medicine 06/11/20 [employer] Production Supervisor Relationship Specialty Start Date End Date Blayne Cain MD [address] [place] [address] PCP - General Internal Medicine 06/11/20 [employer] Production Supervisor Relationship Specialty Start Date End Date Blayne Cain MD [address] [place] [address] PCP - General Internal Medicine 06/11/20 [employer] Production Supervisor Relationship Specialty Start Date End Date Blayne Cain MD [address] [place] [address] PCP - General Internal Medicine 06/11/20 [employer] Production Supervisor Relationship Specialty Start Date End Date Blayne Cain MD [address] [place] [address] PCP - General Internal Medicine 06/11/20 [employer] Production Supervisor Relationship Specialty Start Date End Date Blayne Cain MD [address] [place] [address] PCP - General Internal Medicine 06/11/20 [employer] Production Supervisor Relationship Specialty Start Date End Date Blayne Cain MD [address] [place] [address] PCP - General Internal Medicine 06/11/20 FOR RECORDS PERTAINING TO PATIENTS WHO ARE OR HAVE BEEN ENROLLED IN A CHEMICAL DEPENDENCY/SUBSTANCEABUSE PROGRAM, SOME INFORMATION MAY BE OMITTED. This clinical summary was aggregated from multiple sources. Caution should be exercised in using it in the provision of clinical care. This summary normalizes information from multiple sources, and as a consequence, information in this document may materially change the coding, format and clinical context of patient data. In addition, data may be omitted in some cases. CLINICAL DECISIONS SHOULD BE BASED ON THE PRIMARY CLINICAL RECORDS. [employer] [facility]. provides no warranty or guarantee of the accuracy or completeness of information in this document.
[2023-08-25 07:48] LABS: Cholesterol 174 mg/dL (200); High Density Lipoprotein 43 mg/dL; Triglycerides 124 mg/dL; Very Low Density Lipoprotein 25 mg/dL (5-40)
== END | disposition home or self-care (01) ==
LOC: LAB 06:52
PROVIDERS: PCP Internal Medicine; Referring Provider Internal Medicine Cardiovascular Disease; Visit Provider Internal Medicine Cardiovascular Disease
DX: E78.00 Pure hypercholesterolemia, unspecified (principal); I25.10 Atherosclerotic heart disease of native coronary artery without angina pectoris; Z95.1 Presence of aortocoronary bypass graft
CPT/HCPCS: 36415; 80061

== ENCOUNTER → 2024-02-17 | Outpatient (CLI) | payer MEDICARE, SELFPAY ==
[2024-02-17 07:25] LABS: AST(SGOT) 29 U/L (15-37); Alanine Aminotransfer ALT/SGPT 41 U/L (16-61); Albumin, Serum 3.6 g/dL (3.2-5.0); Alkaline Phosphatase 77 U/L (45-117); Bilirubin, Direct 0.18 mg/dL (0.00-0.30); Cholesterol 137 mg/dL (200); Globulin 3.2 g/dL (2.2-4.2); High Density Lipoprotein 42 mg/dL; Protein, Total 6.8 g/dL (6.4-8.2); Triglycerides 137 mg/dL; Very Low Density Lipoprotein 27 mg/dL (5-40)
== END | disposition home or self-care (01) ==
LOC: LAB 06:18
PROVIDERS: PCP Internal Medicine; Referring Provider Internal Medicine Cardiovascular Disease; Visit Provider Internal Medicine Cardiovascular Disease
DX: I25.10 Atherosclerotic heart disease of native coronary artery without angina pectoris (principal); Z95.1 Presence of aortocoronary bypass graft; E78.00 Pure hypercholesterolemia, unspecified
CPT/HCPCS: 36415; 80061; 80076

== ENCOUNTER 2024-08-29 06:21 | Outpatient (CLI) | payer MEDICARE, SELFPAY ==
[2024-08-29 07:48] LABS: Hemoglobin A1c 6.1 % (3.8-5.6)
[2024-08-29 07:54] LABS: AST(SGOT) 32 U/L (15-37); Alanine Aminotransfer ALT/SGPT 45 U/L (16-61); Albumin, Serum 3.5 g/dL (3.2-5.0); Alkaline Phosphatase 76 U/L (45-117); Bilirubin, Direct 0.12 mg/dL (0.00-0.30); Cholesterol 136 mg/dL (200); Globulin 3.2 g/dL (2.2-4.2); High Density Lipoprotein 44 mg/dL; Protein, Total 6.7 g/dL (6.4-8.2); Triglycerides 173 mg/dL; Very Low Density Lipoprotein 35 mg/dL (5-40)
[2024-08-29 08:31] LABS: PSA,Total - Annual Screen 0.38 ng/mL (0.00-4.00)
== END 2024-08-29 23:59 | disposition home or self-care (01) ==
LOC: LAB 06:22
PROVIDERS: Internal Medicine Cardiovascular Disease; PCP Internal Medicine; Referring Provider Nurse Practitioner; Visit Provider Nurse Practitioner
DX: E78.00 Pure hypercholesterolemia, unspecified (principal); R73.9 Hyperglycemia, unspecified; Z12.5 Encounter for screening for malignant neoplasm of prostate
CPT/HCPCS: 36415; 80061; 80076; 83036; 84153; G0103

== ENCOUNTER 2025-01-02 07:06 | Emergency (ER) | payer MEDICARE, SELFPAY ==
[2025-01-02 07:07] VITALS: BP 144/72; PULSE 64; RESP 16; TEMP 36.3; O2SAT 100; BMI 24.4
--- NOTE | 2025-01-02 07:25 | EX.ED.DYSGE1 ---
HPI History of Present Illness Chief Complaint: Constipation Informant: patient Onset/Context/Timing Onset: Days (6-7 days since last bowel movement.) Context: Sudden Onset Timing: Continuous Quality: Constipation, still passing gas Location: Abdomen generalized Current Severity: Mild Maximum Severity: Mild Worsened by: Not having a bowel movement Relieved by: Nothing Associated Symptoms Associated Symptoms: Bloating sensation Narrative Narrative: Patient is a 79-year-old male. He has history of hyperlipidemia and prediabetes. He states he has had weight loss due to change in his diet because of the prediabetes diagnosis. He does have history of coronary disease. He has not had a bowel movement in 6 to 7 days. He is still passing gas. He feels bloated distended. He is status postcholecystectomy. He has no history of bowel obstruction. He denies fever or chills. He denies respiratory symptoms. He denies urologic symptoms. He states he does have pressure in his rectal area. He has not strained because he gets hemorrhoids when he does this. Prior similar symptoms: No Recent Illness/Hospitalization: No PFSH PFSH Medical History Wears glasses Prostate disease History of renal disease Easy bruising Non-smoker Leg cramps Bladder diverticulum Ureterolithiasis Epididymitis, right GERD (gastroesophageal reflux disease) HLD (hyperlipidemia) Atherosclerotic heart disease of [place] coronary artery without angina pectoris Home Medications ?Medication ?Instructions ?Recorded ?Last Taken ?Type aspirin 81 mg chewable tablet 81 mg PO DAILY@0800 heart 12/19/13 03/03/21 History multivitamin 1 tab PO DAILY PRN supplement 03/16/24 Unknown History atorvastatin 20 mg tablet 20 mg PO QHS dose decreased to 20 08/06/24 Unknown Rx mg #90 tabs Allergy/AdvReac Type Severity Reaction Status Date / Time No Known Allergies Allergy Verified 01/02/25 07:10 Family History Father Hx of CABG Mother Hx of CABG CAD (coronary artery disease) Surgical History History of transurethral resection of prostate (02/2021) History of cholecystectomy (10/2020) H/O coronary artery bypass surgery (02/27/99) Social History Smoking Status: Never smoker alcohol intake: current alcohol intake frequency: a few times a week Alcohol type: wine substance use type: does not use caffeine: No what type of physical activity do you participate in: walking and bicycling frequency: 3-4 times per week duration: 30-45 minutes/day seatbelt use: always do you feel safe at home: Yes ROS ROS ED Constitutional Constitutional ED: Reports weight loss; Denies chills, fever(s) or subjective Cardiovascular Cardiovascular: Denies chest pain or palpitations Respiratory/Chest Respiratory/Chest: Denies cough, dyspnea or dyspnea on exertion Gastrointestinal Gastrointestinal: Reports abdominal pain and constipation; Denies diarrhea, melena, nausea or vomiting Genitourinary Genitourinary ED: Denies dysuria, hematuria or urinary frequency Musculoskeletal Musculoskeletal: Denies back pain Hematologic/Lymphatic Hematologic/Lymphatic: Reports systems reviewed and no addt'l complaints, except as documented EXAM Physical Exam Const Vital Signs: 01/02/25 07:07 Temperature 97.4 F L Temperature Source Oral Pulse Rate 64 Respiratory Rate 16 Blood Pressure 144/72 H Blood Pressure Mean 96 Pulse Ox 100 Oxygen Delivery Method Room Air Positive well nourished and well developed General Appearance ED: well developed and NAD HEENT Reports moist mucous membranes HEENT Narrative: Head is atraumatic normocephalic. Ears normal. Nares patent. Eyes PERRL and EOMs intact bilaterally General Eye ED: Negative for scleral icterus Neck supple and no JVD Resp normal respiratory effort and clear to auscultation bilaterally Cardio regular rate, regular rhythm, S1 normal heart sound, S2 normal heart sound and no murmurs GI no masses; Negative for normal to inspection, nondistended, normoactive bowel sounds, non-tender, non-distended or hepatosplenomegaly GI Narrative: There is central tamponade. Bowel sounds are slightly decreased. There is minimal periumbilical tenderness. Rectal exam reveals hemorrhoids. There is no bleeding. There is no stool in the rectal vault. Prostate was normal size and nontender. Inspection: abdominal distention Palpation: soft Rectal Exam: normal sphincter tone and prostate normal Extremity normal to inspection Neuro oriented x3 and CN's II-XII intact bilaterally Sensorium / Orientation: alert Psych mental status grossly normal Skin no rashes or lesions noted and no wounds MDM MDM MDM Narrative Medical decision making narrative: Patient's history and physical is consistent with obstipation. This may be due to his change in diet. There is no concern for obstruction at this point since he is still flagellated. He may have an ileus. Will obtain 2 view abdominal series to assess bowel gas pattern to determine if patient has an ileus versus constipation due to increased fecal load versus other causes. Symptoms been going on a week his exam is benign vital signs are normal my opinion laboratory tests are not indicated or warranted. History & Record Review Additional record(s) reviewed:: Prior outpatient record (H&P and operative note authored by Dr. Ingram February 2021 was reviewed. Also there was blood work from outside facility February 2023 that was reviewed.), Prior ED visit (Prior ER visit April 2019 for chest pain due to GERD was authored by Dr. Patricio Palacios.) and Prior labs Radiography Chest X-Ray - ED: 2 View and Read by ED Physician (2 view x-ray of the abdomen was obtained. There is notes of gas pattern. There is significant mount of fecal stasis especially distal half of the transverse colon and the descending colon. There is no evidence of pneumoperitoneum. There is no significant atherosclerotic disease noted. Osseous s) Diagnostic Testing: Clinical Impression(s) from Imaging Studies Abdomen X-Ray 01/02/25 07:49 IMPRESSION: Constipation. Reading Location: [facility] Treatment and Re-Evaluation :: Patient was informed of his x-ray results. Plan was formulated. He understands. Discharge Plan Triage Chief Complaint: Constipation ED Provider: Justice Guerrero Dx/Rx/DC Orders Clinical Impression: Obstipation, Atherosclerotic heart disease of [place] coronary artery without angina pectoris, HLD (hyperlipidemia), Prediabetes Instructions: ED Constipation (Adult) Prescriptions: No Action multivitamin Tablet 1 tab PO DAILY PRN (Reason: supplement) aspirin 81 MG tablet,chewable 81 mg PO DAILY@0800 Patient Comments: heart [facility] atorvastatin 20 mg tablet 20 mg PO QHS Qty: 90 3RF Primary Care Provider: Blayne Robbins Referrals: Robbins,Blayne, MD [Primary Care Provider] - As Needed Activity Restrictions/Additional Instructions: 1. 10 ounces of mag citrate once you get home. 2. 4 hours after you drink the mag citrate 1 capful of MiraLAX in your favorite beverage. Repeat this every hour until you start to have results. 3. Recommend MiraLAX once daily for the next week. Print Language: Libyan Disposition Disposition: Home, Self Care
--- NOTE | 2025-01-02 07:49 | RAD_ITS ---
PROCEDURE: ABD INC DECUB AND/OR ERECT 01/02/2025 REASON FOR EXAM: NO BM X 1 WEEK TECHNIQUE: Supine and upright views addendum were obtained. COMPARISON: None FINDINGS: Bowel gas: Moderate constipation identified with fecal material distributed throughout the colon. No evidence of bowel obstruction. Calcifications: No suspicious calcifications. Bones: There are degenerative changes of the spine. Dextroscoliosis. Other: Degenerative changes of both hip joints. RAD/Abd Inc Decub and/or Erect IMPRESSION: Constipation. Reading Location: [id number]
[2025-01-02 08:43] VITALS: BP 138/74; PULSE 61; RESP 16; TEMP 36.6; O2SAT 99
== END 2025-01-02 08:45 | disposition home or self-care (01) ==
PROVIDERS: Emergency Provider Emergency Medicine; PCP Internal Medicine; Visit Provider Emergency Medicine
DX: K59.00 Constipation, unspecified (principal); I25.10 Atherosclerotic heart disease of native coronary artery without angina pectoris; E78.5 Hyperlipidemia, unspecified; R73.03 Prediabetes; Z95.1 Presence of aortocoronary bypass graft
CPT/HCPCS: 74019; 99282

== ENCOUNTER 2025-01-29 10:06 | Day surgery (SDC) | payer MEDICARE, SELFPAY ==
--- NOTE | 2025-01-25 10:14 | PAT.ANESEVAL ---
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 When Was Last Pacemaker Check QUESTION #4 FULL TEXT: You/Your Family Experience fever (hyperthermia) with Anesthesia Last Oral Intake Last Oral intake: Last Oral Intake NPO since Meds taken in AM with sips of water? Meds patient instructed to take am of surgery PONV PONV - telephone assembler: PONV - telephone assembler Female No 01/25/25 08:59 HX of Motion Sickness No 01/25/25 08:59 HX of N/V After Surgery No 01/25/25 08:59 Non-Smoker Yes 01/25/25 08:59 Duration of Surgery greater No 01/25/25 08:59 than 60 minutes Number of Risk Factors 1 01/25/25 08:59 PONV Score Low Risk 01/25/25 08:59 Height & Weight Height & Weight: Anesthesia: Height & Weight Height 5 ft 7 in 01/04/25 14:39 Respiratory Assessment Respiratory Assessment - telephone assembler: Respiratory Tract Infection Hx - telephone assembler Hx Respiratory Tract Infection No 01/25/25 08:59 STOP Sleep Apnea STOP Sleep Apnea - telephone assembler: STOP Sleep Apnea - telephone assembler Hx Hypertension No 01/25/25 08:59 Hx Sleep Apnea No 01/25/25 08:59 CPAP BIPAP Do you snore loudly (louder No 01/25/25 08:59 than talking or can be heard Do you often feel tired/ No 01/25/25 08:59 fatigued/ sleepy during daytime? Has anyone observed you stop No 01/25/25 08:59 breathing during sleep? STOP Results Negative 01/25/25 08:59 QUESTION #5 FULL TEXT : Do you snore loudly (louder than talking or can be heard through closed doors)? 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 Specify any problems Hx of Preganancy in last 3 N/A 01/25/25 08:59 Months Nurse Filling Out Transfusion JeyZOCARIE 01/25/25 08:59 & Questions: Date: 01/25/25 01/25/25 08:59 Time: 09:01 01/25/25 08:59 Patient unable to answer at this time (ie. confused, unrespo /Reproduction History /Reproductive History - telephone assembler: /Reproductive Hx- telephone assembler Hx Now No 01/25/25 08:59 Gestational Age (in weeks): EDC: Hx Hx Para Hx Section SAB No 01/25/25 08:59 [facility] Medical History (Updated 01/25/25 @ 08:59 by Pooja Tai) Alcohol use Cardiology follow-up encounter Constipation Wears glasses Prostate disease History of renal disease Easy bruising Non-smoker Leg cramps Bladder diverticulum Ureterolithiasis Epididymitis, right GERD (gastroesophageal reflux disease) HLD (hyperlipidemia) Atherosclerotic heart disease of [place] coronary artery without angina pectoris Home Medications ?Medication ?Instructions ?Recorded ?Last Taken ?Type aspirin 81 mg chewable tablet 81 mg PO DAILY@0800 heart 12/19/13 03/03/21 History multivitamin 1 tab PO DAILY PRN supplement 03/16/24 Unknown History atorvastatin 20 mg tablet 20 mg PO QHS dose decreased to 20 08/06/24 Unknown Rx mg #90 tabs magnesium oxide 250 mg PO DAILY 01/25/25 Unknown History Allergy/AdvReac Type Severity Reaction Status Date / Time No Known Allergies Allergy Verified 01/25/25 08:47 Family History Father Hx of CABG Mother Hx of CABG CAD (coronary artery disease) Surgical History History of transurethral resection of prostate (02/2021) History of cholecystectomy (10/2020) H/O coronary artery bypass surgery (02/27/99) Social History Smoking Status: Never smoker alcohol intake: current alcohol intake frequency: a few times a week Alcohol type: wine substance use type: does not use caffeine: No what type of physical activity do you participate in: walking and bicycling frequency: 3-4 times per week duration: 30-45 minutes/day seatbelt use: always do you feel safe at home: Yes Audit: Pertinent Findings Pertinent Findings EKG Perinent findings: Sinus rhythm 62 bpm. Within normal limits. Echo (EF%) pertinent findings: 03/02/2021. EF 60%. Consult pertinent findings: Cardiology 03/16/2024. All 4E. History of coronary artery bypass surgery. CABG x 1 GILMORE?LAD. 99 9. Continue current medical therapy PAD stress test normal. Recommendation Anesthesia Recommendation Anesthesia recommendation: OPTIMIZED for anesthesia
[2025-01-29] VITALS (10 sets, daily range): BP systolic 123–133; BP diastolic 62–81; PULSE 56–70; RESP 16–18; TEMP 36.4–36.8; O2SAT 93–100; BMI 23.8
--- NOTE | 2025-01-29 10:33 | PCM.PRE.AN2 ---
ASA Classification* ASA Classification ASA Classification: 3 Assessment & Plan Anesthesia* Anesthesia Assessment Anesthesia Assessment: Discussed sedation and/or anesthesia options, risks, benefits, and alternatives with patient/parents/legal guardian/POA. Questions invited. The patient/parents/legal guardian/POA seems to understand and agrees to proceed with anesthesia plan. Reviewed the physical assessment, medical history, allergy history and patient home medications list prior to surgery/procedure/anesthetic and documented any changes. Performed airway and anesthesia risk assessments. Anesthesia Type Anesthesia Type: MAC Anesthesia Focused Assessment* Temperature: 98.3 F Pulse Rate: 68 Blood Pressure: 128/66 Respiratory Rate: 18 Pulse Ox: 100 Airway Assessment Mouth opens: >3 cm Mallampati Score: II Labs Anesthesia Preop lab: CBC WBC 6.9 K/mm3 (4.4-11.0) 03/04/23 07:04 03/04/23 RBC 5.02 M/mm3 (4.6-6.2) 03/04/23 07:04 03/04/23 Hgb 14.6 g/dL (13.0-16.5) 03/04/23 07:04 03/04/23 Hct 44.9 % (40-54) 03/04/23 07:04 03/04/23 Plt Count 201 K/mm3 (150-450) 03/04/23 07:04 03/04/23 CHEMISTRY Potassium 4.1 mmol/L (3.5-5.1) 03/04/23 07:03 03/04/23 Sodium 139 mmol/L (136-145) 03/04/23 07:03 03/04/23 BUN 14 mg/dL (7-18) 03/04/23 07:03 03/04/23 Creatinine 1.03 mg/dL (0.70-1.30) 03/04/23 07:03 03/04/23 Glucose 101 mg/dL (74-106) 03/04/23 07:03 03/04/23 TSH 2.64 uIU/mL (0.358-3.74) 03/04/23 07:03 03/04/23 COAG Pre-Assessment Diagnosis/Proposed Procedure Planned Operative Procedure(s): COLONOSCOPY Anesthesia History Anesthesia History - addiction treatment counselor: Anesthesia History - addiction treatment counselor Hx Hospitalization No 01/25/25 08:59 Any Problems With Anesthesia No 01/25/25 08:59 Cholinesterase deficiency No 01/25/25 08:59 You/Your Family Experience No 01/25/25 08:59 fever (hyperthermia) with Relationship Recent Exposure to Contagious No 01/29/25 10:28 Disease Does patient have nerve No 01/25/25 08:59 stimulator Patient instructed to have device shut off --Does patient have Pacemaker No 01/29/25 10:29 or ICD? When Was Last Pacemaker Check QUESTION #4 FULL TEXT: You/Your Family Experience fever (hyperthermia) with Anesthesia Last Oral Intake Last Oral intake: Last Oral Intake NPO since 00:00 01/29/25 10:29 Meds taken in AM with sips of No 01/29/25 10:29 water? Meds patient instructed to take am of surgery PONV PONV - addiction treatment counselor: PONV - addiction treatment counselor Female No 01/25/25 08:59 HX of Motion Sickness No 01/25/25 08:59 HX of N/V After Surgery No 01/25/25 08:59 Non-Smoker Yes 01/25/25 08:59 Duration of Surgery greater No 01/25/25 08:59 than 60 minutes Number of Risk Factors 1 01/25/25 08:59 PONV Score Low Risk 01/25/25 08:59 Height & Weight Height & Weight: Anesthesia: Height & Weight Height 5 ft 7 in 01/29/25 10:29 Weight: 69.127 kg 01/29/25 10:29 Body Mass Index (BMI) 23.8 01/29/25 10:29 Respiratory Assessment Respiratory Assessment - addiction treatment counselor: Respiratory Tract Infection Hx - addiction treatment counselor Hx Respiratory Tract Infection No 01/25/25 08:59 STOP Sleep Apnea STOP Sleep Apnea - addiction treatment counselor: STOP Sleep Apnea - addiction treatment counselor Hx Hypertension No 01/25/25 08:59 Hx Sleep Apnea No 01/25/25 08:59 CPAP BIPAP Do you snore loudly (louder No 01/25/25 08:59 than talking or can be heard Do you often feel tired/ No 01/25/25 08:59 fatigued/ sleepy during daytime? Has anyone observed you stop No 01/25/25 08:59 breathing during sleep? STOP Results Negative 01/25/25 08:59 QUESTION #5 FULL TEXT : Do you snore loudly (louder than talking or can be heard through closed doors)? 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 Specify any problems Hx of Preganancy in last 3 N/A 01/25/25 08:59 Months Nurse Filling Out Transfusion [email or web address] 01/25/25 08:59 & Questions: Date: 01/25/25 01/25/25 08:59 Time: 09:01 01/25/25 08:59 Patient unable to answer at this time (ie. confused, unrespo /Reproduction History /Reproductive History - addiction treatment counselor: /Reproductive Hx- addiction treatment counselor Hx Now No 01/25/25 08:59 Gestational Age (in weeks): EDC: Hx Hx Para Hx Section SAB No 01/25/25 08:59 PFSH Medical History Alcohol use Cardiology follow-up encounter Constipation Wears glasses Prostate disease History of renal disease Easy bruising Non-smoker Leg cramps Bladder diverticulum Ureterolithiasis Epididymitis, right GERD (gastroesophageal reflux disease) HLD (hyperlipidemia) Atherosclerotic heart disease of [place] coronary artery without angina pectoris Home Medications ?Medication ?Instructions ?Recorded ?Last Taken ?Type aspirin 81 mg chewable tablet 81 mg PO DAILY@0800 heart 12/19/13 01/28/25 History multivitamin 1 tab PO DAILY PRN supplement 03/16/24 01/27/25 History atorvastatin 20 mg tablet 20 mg PO QHS dose decreased to 20 08/06/24 01/27/25 Rx mg #90 tabs magnesium oxide 250 mg PO DAILY 01/25/25 01/28/25 History Allergy/AdvReac Type Severity Reaction Status Date / Time No Known Allergies Allergy Verified 01/29/25 10:26 Family History Father Hx of CABG Mother Hx of CABG CAD (coronary artery disease) Surgical History History of transurethral resection of prostate (02/2021) History of cholecystectomy (10/2020) H/O coronary artery bypass surgery (02/27/99) Social History Smoking Status: Never smoker alcohol intake: current alcohol intake frequency: a few times a week Alcohol type: wine substance use type: does not use caffeine: No what type of physical activity do you participate in: walking and bicycling frequency: 3-4 times per week duration: 30-45 minutes/day seatbelt use: always do you feel safe at home: Yes Review of Systems (Anesthesia) ROS Narrative System reviewed and no additional complaints, except as documented.
[2025-01-29] MEDS: Lactated Ringers 1,000 ML 15 ML IV (10:45)
--- NOTE | 2025-01-29 11:18 | PCM.HP.STD ---
HPI - General General Date of Admission: 01/29/25 Date of Service: 02/20/25 Chief Complaint: colonoscopy for constipation HPI Narrative The patient is a 79-year-old male who is being seen today for constipation which has come on rather abruptly. Patient is now taking MiraLAX daily with better results. I have offered him a colonoscopy since he has never had one previously. We discussed the details of the planned procedure and he wishes to proceed. This will be scheduled in a timely manner. In the meantime, I am recommending that he continue doing MiraLAX daily. He is agreeable to this plan. [facility] Medical History Alcohol use Cardiology follow-up encounter Constipation Wears glasses Prostate disease History of renal disease Easy bruising Non-smoker Leg cramps Bladder diverticulum Ureterolithiasis Epididymitis, right GERD (gastroesophageal reflux disease) HLD (hyperlipidemia) Atherosclerotic heart disease of [place] coronary artery without angina pectoris Home Medications ?Medication ?Instructions ?Recorded ?Last Taken ?Type aspirin 81 mg chewable tablet 81 mg PO DAILY@0800 heart 12/19/13 01/28/25 History multivitamin 1 tab PO DAILY PRN supplement 03/16/24 01/27/25 History atorvastatin 20 mg tablet 20 mg PO QHS dose decreased to 20 08/06/24 01/27/25 Rx mg #90 tabs magnesium oxide 250 mg PO DAILY 01/25/25 01/28/25 History Allergy/AdvReac Type Severity Reaction Status Date / Time No Known Allergies Allergy Verified 01/29/25 10:26 Family History Father Hx of CABG Mother Hx of CABG CAD (coronary artery disease) Surgical History History of transurethral resection of prostate (02/2021) History of cholecystectomy (10/2020) H/O coronary artery bypass surgery (02/27/99) Social History Smoking Status: Never smoker alcohol intake: current alcohol intake frequency: a few times a week Alcohol type: wine substance use type: does not use caffeine: No what type of physical activity do you participate in: walking and bicycling frequency: 3-4 times per week duration: 30-45 minutes/day seatbelt use: always do you feel safe at home: Yes Vital Signs Vital Signs Vital Signs: 01/29/25 10:28 01/29/25 10:29 01/29/25 10:34 Temperature 98.3 F 98.3 F Temperature Source Temporal Pulse Rate 68 68 Respiratory Rate 18 18 Respiratory Pattern Normal Blood Pressure 128/66 H 128/66 H Blood Pressure Mean 86 Blood Pressure Source Monitor Blood Pressure Position Semi-Fowlers Blood Pressure Location Left Arm Pulse Ox 100 100 Oxygen Delivery Method Room Air Weight Weight: 152 lb 6.4 oz Body Mass Index (BMI) 23.8 Assessment & Plan Assessment/Plan (1) Constipation: PLAN: Plan The patient is a 79-year-old male with issues of constipation recently. I have offered him a colonoscopy. We discussed the details of the planned procedure and he wishes to proceed. This will begin momentarily
--- NOTE | 2025-01-29 11:56 | OP.CCLET_ITS ---
01/29/2025 Blayne Robbins [address] [place] [address] Re : Colonoscopy procedure for Rogerio Garcia Dear Dr. Robbins This procedure was performed on Wednesday, January 29, 2025. My impressions and recommendations are as follows: Impressions : - Diverticulosis in the sigmoid colon. - Internal hemorrhoids. - The examination was otherwise normal. - No specimens collected. Recommendations : - Discharge patient to home (ambulatory). - High fiber diet. - Repeat colonoscopy in 10 years for screening purposes. - Return to my office PRN. - Continue present medications. My findings are described in the full procedure note, which is enclosed. If I can be of further assistance, please feel free to contact me at . Sincerely, Shawn Christian MD 01/29/2025 11:55:51 AM This report has been signed electronically.
--- NOTE | 2025-01-29 11:56 | OP.COLON_ITS ---
Patient Name: Rogerio Garcia Procedure Date: 01/29/2025 11:18 AM Date of : 1945 Age: 79 Procedure: Colonoscopy Indications: Screening for colorectal malignant neoplasm Providers: Shawn Christian MD Referring MD: Shawn Christian MD Medicines: Monitored Anesthesia Care Patient Profile: Refer to note in patient chart for documentation of history and physical. Last Colonoscopy: none. The patient's first colonoscopy is today. Complications: No immediate complications. Estimated blood loss: None. Procedure: Pre-Anesthesia Assessment: - Prior to the procedure, a History and Physical was performed, and patient medications and allergies were reviewed. The patient's tolerance of previous anesthesia was also reviewed. The risks and benefits of the procedure and the sedation options and risks were discussed with the patient. All questions were answered, and informed consent was obtained. Prior Anticoagulants: The patient has taken no anticoagulant or antiplatelet agents. ASA Grade Assessment: II - A patient with mild systemic disease. After reviewing the risks and benefits, the patient was deemed in satisfactory condition to undergo the procedure. After I obtained informed consent, the scope was passed under direct vision. Throughout the procedure, the patient's blood pressure, pulse, and oxygen saturations were monitored continuously. The adult colonoscope was introduced through the anus and advanced to the cecum, identified by appendiceal orifice and ileocecal valve. The ileocecal valve, appendiceal orifice, and rectum were photographed. The entire colon was well visualized. The colonoscopy was performed without difficulty. The patient tolerated the procedure well. The quality of the bowel preparation was adequate. Moderate Sedation: See the other procedure note for documentation of moderate sedation with intraservice time. Scope In: 11:28:22 AM Scope Withdrawal Time 0 hours 10 minutes 55 seconds Scope Out: 11:46:56 AM Total Procedure Duration Time 0 hours 18 minutes 34 seconds Findings: The perianal and digital rectal examinations were normal. Multiple small-mouthed diverticula were found in the sigmoid colon. Internal hemorrhoids were found during anoscopy. The hemorrhoids were mild. The exam was otherwise without abnormality. Impression: - Diverticulosis in the sigmoid colon. - Internal hemorrhoids. - The examination was otherwise normal. - No specimens collected. Recommendation: - Discharge patient to home (ambulatory). - High fiber diet. - Repeat colonoscopy in 10 years for screening purposes. - Return to my office PRN. - Continue present medications. Procedure Code(s): --- Professional --- 52066, Colonoscopy, flexible; diagnostic, including collection of specimen(s) by brushing or washing, when performed (separate procedure) Diagnosis Code(s): --- Professional --- Z12.11, Encounter for screening for malignant neoplasm of colon K57.30, Diverticulosis of large intestine without perforation or abscess without bleeding K64.8, Other hemorrhoids CPT copyright 2021 [employer] [place] [employer]. All rights reserved. The codes documented in this report are preliminary and upon lean coach review may be revised to meet current compliance requirements. Shawn Christian MD 01/29/2025 11:55:51 AM This report has been signed electronically. Number of Addenda: 0 Note Initiated On: 01/29/2025 11:18 AM
--- NOTE | 2025-01-29 12:04 | PCM.POST.ANE ---
Anesthesia: Postop Eval I Current Vital Signs Temperature: 97.9 F Pulse Rate: 70 Blood Pressure: 123/65 Respiratory Rate: 18 Pulse Ox: 93 Assessment Airway patent: Yes Spontaneous unlabored respirations: Yes nausea: No Vomiting: No Anesthesia Complication: No Fluid Hydration Crystalloid volume administer (ml): 400 Total IV fluid infused: 400 Progress Note Anesthesia document: Postop Eval 1 completed: Yes
--- NOTE | 2025-01-29 12:54 | POSTOPAN2_ITS ---
Anesthesia Postop Eval I Sum Postop Eval Completion status Anesthesia document: Postop Eval 1 completed: Yes Anesthesia Postop Eval I Summary Anesthesia Postop Eval I Summary: Anesthesia Postop Eval I: Assessment Summary Airway patent Yes 01/29/25 12:04 [employer].CSIR Spontaneous unlabored Yes 01/29/25 12:04 [employer] SAL[employer]SULTANT.CSIR respirations Mental status nausea No 01/29/25 12:04 [employer] SAL[employer]SULTANT.CSIR Vomiting No 01/29/25 12:04 [employer] SALES CONSULTANT.CSIR Anesthesia Postop Eval I: Fluid Summary Crystalloid volume administer 400 01/29/25 12:04 [employer] SALES CONSULTANT.CSIR (ml) Colloids volume administered ( ml) Blood Product volume administered (ml) Total IV fluid infused 400 01/29/25 12:04 [employer] SALES CONSULTANT.CSIR Anesthesia Postop Eval I: Summary Notes Anesthesia Complication No 01/29/25 12:04 [employer] SALES CONSULTANT.CSIR Anesthesia Complication Comment: Post-operative progress note Anesthesia: Postop Eval II Evaluation Mental status: Awake Pain Level: 0 nausea: No Vomiting: No
--- NOTE | 2025-01-29 12:54 | PCM.POSTANE2 ---
Anesthesia Postop Eval I Sum Postop Eval Completion status Anesthesia document: Postop Eval 1 completed: Yes Anesthesia Postop Eval I Summary Anesthesia Postop Eval I Summary: Anesthesia Postop Eval I: Assessment Summary Airway patent Yes 01/29/25 12:04 [employer].CSIR Spontaneous unlabored Yes 01/29/25 12:04 [employer].CSIR respirations Mental status nausea No 01/29/25 12:04 [employer].CSIR Vomiting No 01/29/25 12:04 [employer].CSIR Anesthesia Postop Eval I: Fluid Summary Crystalloid volume administer 400 01/29/25 12:04 [employer].CSIR (ml) Colloids volume administered ( ml) Blood Product volume administered (ml) Total IV fluid infused 400 01/29/25 12:04 [employer].CSIR Anesthesia Postop Eval I: Summary Notes Anesthesia Complication No 01/29/25 12:04 [employer].CSIR Anesthesia Complication Comment: Post-operative progress note Anesthesia: Postop Eval II Evaluation Mental status: Awake Pain Level: 0 nausea: No Vomiting: No
== END 2025-01-29 12:41 | disposition home or self-care (01) ==
LOC: EN 10:07 → AC 10:08
PROVIDERS: PCP Internal Medicine; Referring Provider Internal Medicine; Visit Provider Surgery
PROC: 0DJD8ZZ Inspection of Lower Intestinal Tract, Via Natural or Artificial Opening Endoscopic (ICD-10-PCS; CPT 45378; principal; 2025-01-29 10:55)
DX: K64.8 Other hemorrhoids (principal); I25.10 Atherosclerotic heart disease of native coronary artery without angina pectoris; E78.5 Hyperlipidemia, unspecified; K57.30 Diverticulosis of large intestine without perforation or abscess without bleeding; K21.9 Gastro-esophageal reflux disease without esophagitis; Z79.82 Long term (current) use of aspirin; Z79.899 Other long term (current) drug therapy
CPT/HCPCS: 45378; J2405

== ENCOUNTER → 2025-02-28 | Outpatient (CLI) | payer MEDICARE, SELFPAY ==
--- OUTSIDE RECORDS SUMMARY | 2025-02-28 06:50 | XMS RPT_ITS | CCD ---
Author Organization [facility] CliniSynh Care Team Providers Care Soil Field Technician Name Role Phone Anastacia Srinivasan Unavailable Unavailable MD Abebe Cyril S Unavailable Dorene RN, Natividad Bruns Unavailable Unavailable Dorene RN, Natividad A Unavailable Unavailable Anastacia Srinivasan Unavailable Unavailable Blayne Cain MD Primary Care Provider Dr. Blayne Cain Primary Care Provider Dr. Blayne Cain Referring Provider Dr. Gray Abebe Attending Provider Dr. Gray Abebe Referring Provider Dr. Gray Abebe Other Provider Blayne Cain MD Primary Care Provider Blayne Cain MD Primary Care Provider Dr. Blayne Cain Primary Care Provider Dr. Blayne Cain Referring Provider Dr. Gray Abebe Attending Provider Blayne Cain MD Primary Care Provider Cecile CHUCKING AND SAWING MACHINE OPERATOR.SLASHER RUNNER, Yoli M Unavailable Dr. Blayne Cain MD Primary Care Provider Referred, Self Attending Provider Unavailable Referred, Self Referring Provider Unavailable Lolis CULP, Dr. Curry Attending Provider Dr. Justice Guerrero MD Emergency Provider Dr. Blayne Cain MD Referring Provider Anahi CULP Dr. Shawn Burns Attending Provider CAIN, JUANA Primary Care Unavailable CAIN, JUANA Referring Unavailable CAIN, JUANA Primary Care Unavailable CAIN, JUANA Primary Care Unavailable CAIN, JUANA Attending Unavailable CAIN, JUANA Referring Unavailable CAIN, JUANA Primary Care Unavailable Cesar CULP, Dr. Rendon Attending Provider [phone] Anahi CULP, Dr. Shawn Burns Other Provider Mis, Gray Attending Unavailable Cain, Blayne Primary Care Unavailable Cain, Blayne Primary Care Unavailable Patricio Danielle Attending Unavailable Cain, Blayne Referring Unavailable Cain, Blayne Primary Care Unavailable Wanek, Shawn Burns Consulting Unavailable Wanek, Shawn Burns Attending Unavailable Wanek, Shawn Burns Attending Unavailable Cain, Blayne Primary Care Unavailable Cain, Blayne Referring Unavailable Mis, Gray Attending Unavailable Cain, Blayne Primary Care Unavailable Cain, Blayne Referring Unavailable Cain, Blayne Referring Unavailable Cain, Blayne Primary Care Unavailable Wanek, Shawn Burns Attending Unavailable Cain, Blayne Primary Care Unavailable Mis, Gray Consulting Unavailable Elma, Genesis Attending Unavailable Elma, Genesis Referring Unavailable Cain, Blayne Primary Care Unavailable Justice Guerrero Attending Unavailable Referred, Self Attending Unavailable Referred, Self Referring Unavailable Cain, Blayne Primary Care Unavailable Mis, Gray Attending Unavailable Mis, Gray Referring Unavailable Cain, Blayne Primary Care Unavailable Medications Current Medications Medication Drug Class(es) Dates Sig (Normalized) Sig (Original) [id number] 200 actuat albuterol 0.09 mg/actuat metered dose [...] 08/19/2021 06/01/2022 Discontinued (Course of therapy completed) Comment on above: Inhale 2 Puffs as in structed every 4 hours as needed for wheezing/shortness of breath. amoxicillin 875 mg / clavulanate 125 mg oral tablet (2 sources) Penicillin-class Antibacterial Start: 05-27-2022 End: 06-06-2022 take 1 tablet by mouth twice daily amoxicillin-clavul anic acid (AUGMENTIN) 875-125 mg per tablet Indications: Septic olecranon bursitis of left elbow Take 1 tablet by mouth twice daily for 10 days. 20 tablet 0 05/27/2022 06/06/2022 Active Comment on above: Take 1 tablet by alejandro th twice daily for 10 days. aspirin 81 mg chewable tablet (20 sources) Platelet Aggregation Inhibitor, Nonsteroidal Anti-inflammatory Drug Start: 12-19-2013 take 1 tablet by mouth once daily Aspirin 81 MG tablet,chewable Active 81 mg PO DAILY@0800 December 19, 2013 12:00am Start: 10-02-2012 take 1 tablet by alejandro th once daily ASPIRIN 81 MG TABS One tablet by mouth daily ASPIRIN [id number] Mihaela Gallagher RN Start: 10-02-2012 take 1 tablet by alejandro th once daily ASPIRIN EC 81 MG TBEC One tablet by mouth daily ASPIRIN [id number] Natividad Catherine RN Start: 08-02-2005 ASPIRIN 81 MG TAB Take one (1) tablet daily . 0 08/02/2005 Active Comment on above: Take one (1) tablet daily . doxycycline hyclate 100 mg oral tablet (2 sources) Tetracycline-cla ss Drug Start: 05-27-2022 End: 06-06-2022 take 1 tablet by mouth twice daily doxycycline (VIBRA-TABS) 100 mg tablet Indications: Septic olecranon bursitis of left elbow Take 1 tablet by mouth twice daily for 10 days. 20 tablet 0 05/27/2022 06/06/2022 Active Comment on above: Take 1 tablet by alejandro twice daily for 10 days. magnesium oxide 250 mg oral tablet (1 source) Start: 01-25-2025 take 1 tablet by mouth once daily Magnesium Oxide 250 mg magnesium tablet Active 250 mg PO DAILY January 25, 2025 12:00am Multivitamin preparation (13 sources) Start: 03-20-2019 take 1 tablet by mouth once daily Multivitamin Active 1 TABLET PO DAILY March 19, 2019 11:00pm Start: 03-20-2019 take 1 tablet by alejandro th once daily Multivitamin Active 1 TABLET PO DAILY March 20, 2019 12:00am Start: 10-12-2016 End: 03-20-2019 Multivitamin Discontinued 1 {tbl} PO DAILY October 12, 2016 1:00am March 20, 2019 11:00am Start: 10-12-2016 End: 03-20-2019 take 1 tablet by mouth once daily Multivitamin Discontinued 1 TABLET PO DAILY October 12, 2016 12:00am March 20, 2019 10:00am Start: 10-12-2016 End: 03-20-2019 take 1 tablet by mouth once daily Multivitamin Discontinued 1 TABLET PO DAILY October 12, 2016 1:00am March 20, 2019 11:00am Multivitamin tablet (6 sources) Start: 03-16-2024 Multivitamin t ablet Active 1 {tbl} PO DAILY as needed for supplement March 16, 2024 1:54pm Start: 03-20-2019 End: 03-16-2024 Multivitamin tablet Disconti nued 1 {tbl} PO DAILY March 20, 2019 12:00am March 16, 2024 1:54pm Completed/Discontinued Medications Medication Drug Class(es) Dates Sig (Normalized) Sig (Original) acetaminophen 325 mg / oxyCODONE hydrochloride 5 mg oral tablet (16 sources) Opioid Agonist Start: 03-11-2021 End: 03-12-2022 Oxycodone-Acetamino phen 5-325 mg tablet Discontinued 1 {tbl} PO EVERY 6 HOURS as needed for pain 10 March 11, 2021 March 12, 2022 3:16pm Start: 03-11-2021 End: 03-12-2022 take 1 tablet by mouth every six hours Oxycodone-Acetaminophen Discontinued 1 TABLET PO EVERY 6 HOURS 10 March 11, 2021 March 12, 2022 2:16pm Start: 01-25-2021 End: 02-25-2021 Oxycodone-Acetaminophen (Per cocet) 2.5-325 mg tablet Discontinued 1 {tbl} PO Q4H as needed for pain 18 January 25, 2021 February 25, 2021 1:07pm atorvastatin 20 mg oral tablet (20 sources) HMG-CoA Reductase Inhibitor Start: 03-10-2023 End: 08-06-2024 take 1 tablet by mouth at bedtime Atorvastatin 20 mg tablet Discontinued 20 mg PO AT BEDTIME August 18, 2023 11:59am August 06, 2024 8:58am Start: 03-07-2013 End: 03-10-2023 take 1 tablet by mouth at bedtime Atorvastatin 40 mg tablet Discontinued 40 mg PO AT BEDTIME August 31, 2022 11:46am March 10, 2023 9:43am Start: 01-01-2013 take 1 tablet by alejandro th once daily LIPITOR 20 MG TABS One tablet by mouth daily ATORVASTATIN CALCIUM [id number] Gray Abebe MD Comment on above: Take 40 mg by mouth daily at bedtime. [facility] ciprofloxacin 500 mg oral tablet (8 sources) Quinolone Antimicrobial Start: End: take 1 tablet by mouth twice daily Ciprofloxacin Hcl (Cipro) 500 mg tablet Discontinued 500 mg PO TWICE A DAY March 11, 2021 12:00am March 12, 2022 3:16pm docusate sodium 100 mg oral capsule (16 sources) Start: End: take 1 capsule by mouth twice daily as needed Docusate Sodium (Colace) 100 mg capsule Discontinued 100 mg PO TWICE A DAY as needed March 12, 2022 3:16pm March 16, 2024 1:54pm esomeprazole 40 mg delayed release oral capsule (8 sources) Proton Pump Inhibitor Start: End: take 1 capsule by mouth once daily Esomeprazole Magnesium (Nexium) 40 mg capsule,delayed release(DR/EC) Discontinued 40 mg PO DAILY May 03, 2018 12:00am September 05, 2018 10:49am MULTIPLE VITAMINS-MINERALS (3 sources) Start: take 1 tablet by mouth once daily MULTIVITAMIN ADULT TABS One tablet by mouth daily MULTIPLE VITAMINS-MINERALS [id number] Natividad Catherine RN MULTIPLE VITAMINS-MINERALS (2 sources) Start: take 1 tablet by mouth once daily MULTIVITAMIN ADULT TABS One tablet by mouth daily MULTIPLE VITAMINS-MINERALS [id number] Natividad Catherine RN tadalafil 10 mg oral tablet (11 sources) Phosphodiesterase 5 Inhibitor Start: End: take 1 tablet by mouth once Tadalafil (Cialis) 10 mg tablet Discontinued 10 mg PO ONCE August 16, 2017 1:00am August 18, 2017 11:13am Start: 01-06-2017 take 1 tablet by alejandro th once daily as needed CIALIS 10 MG TABS One tablet by mouth daily prn TADALAFIL [id number] Gray Abebe MD Problems Active Problems Problem Classification Problem Date Documented Da te Episodic/Chronic Anxiety disorders (1 source) Outbursts of anger; Translations: [Irritability and anger] 09-05-2024 Episodic Calculus of urinary tract (8 sources) Ureteric stone; Translations: [Calculus of ureter] 03-11-2022 Episodic Conditions associated with dizziness or vertigo (8 sources) Lightheadedness; Translations: [Dizziness and giddiness] 03-12-2022 Episodic Coronary atherosclerosis and other heart disease (20 sources) Atherosclerotic heart disease of [place] coronary artery without angina pectoris; Translations: [Coronary arteriosclerosis] Onset: 5 Resolved: 5 10-21-2015 Chronic Diabetes mellitus without complication (11 sources) High hemoglobin A1c level; Translations: [Other abnormal glucose] Onset: 5 09-05-2024 Episodic Disorders of lipid metabolism (20 sources) Hyperlipidemia; Translations: [Other hyperlipidemia] Onset: 5 10-02-2012 Chronic Esophageal disorders (20 sources) Gastroesophageal reflux disease; Translations: [Gastro-esophageal reflux disease without esophagitis] Onset: 0 Resolved: 5 03-13-2020 Chronic Immunizations and screening for infectious disease (7 sources) Needs influenza immunization; Translations: [Encounter for immunization] Episodic Inflammatory conditions of male genital organs (8 sources) Epididymitis; Translations: [Epididymitis] 03-11-2022 Episodic Other bone disease and musculoskeletal deformities (3 sources) Senile osteopenia; Translations: [Other specified disorders of bone density and structure, unspecified site] Onset: 5 10-18-2024 Episodic Other connective tissue disease (2 sources) Infection of olecranon bursa of left elbow; Translations: [Other infective bursitis, left elbow] Episodic Other connective tissue disease (1 source) Decrease in height; Translations: [Loss of height] 09-05-2024 Episodic Other connective tissue disease (1 source) Loss of height; Translations: [Loss of height] Onset: Episodic Other diseases of bladder and urethra (8 sources) Diverticulum of bladder; Translations: [Diverticulum of bladder] 03-11-2022 Chronic Other gastrointestinal disorders (3 sources) Obstipation; Translations: [Constipation, unspecified] 01-02-2025 Episodic Other gastrointestinal disorders (4 sources) Constipation; Translations: [Constipation, unspecified] 01-04-2025 Episodic Other gastrointestinal disorders (2 sources) Constipation, unspecified; Translations: [Constipation, unspecified] Onset: Episodic Other lower respiratory disease (8 sources) Dyspnea on exertion; Translations: [Other forms of dyspnea] 03-12-2022 Episodic Screening and history of mental health and substance abuse codes (2 sources) Patient encounter status; Translations: [Encounter for screening for depression] 09-05-2024 Episodic Skin and subcutaneous tissue infections (1 source) Paronychia of toe; Translations: [Cellulitis of unspecified toe] 09-05-2024 Episodic Unclassified (6 sources) Long-term drug therapy; Translations: [Long-term (current) use of other medications] Onset: 3 Resolved: 5 04-07-2015 Past or Other Problems Problem Classification Problem Date Documented Da te Episodic/Chronic Coronary atherosclerosis and other heart disease (8 sources) Presence of aortocoronary bypass graft; Translations: [Aortocoronary bypass status] Onset: 02-27-1999 04-24-2015 Episodic Other aftercare (9 sources) Other assisted (current) drug therapy; Translations: [Long-term (current) use of other medications] Onset: 01-01-2013 Resolved: 04-07-2015 04-07-2015 Episodic Other lower respiratory disease (6 sources) Cough; Translations: [Cough] Onset: 11-13-2007 Resolved: 10-14-2016 10-14-2016 Episodic Residual codes; unclassified (10 sources) Family history of ischemic heart disease and other diseases of the circulatory system; Translations: [Family history of ischemic heart disease and other diseases of the circulatory system] Resolved: 04-24-2015 10-01-2014 Episodic Spondylosis; intervertebral disc disorders; other back problems (8 sources) Acute low back pain; Translations: [Acute low back pain, unspecified back pain laterality, unspecified whether sciatica present] Onset: 06-14-2022 Resolved: 08-24-2022 Episodic Unclassified (3 sources) Coronary artery bypass graft; Translations: [Presence of coronary angioplasty implant and graft] Onset: 10-02-2012 10-02-2012 Results Test Name Value Interpretation Reference Range Facility Colonoscopy Reporton 025 Colonoscopy Report [facility] Medical Records Department [address] [place] [address] Colonoscopy Report MR#: [id number] Acct: [id number] Name: ROGERIO GARCIA Rep #: [id number] : 1945 79 From: Shawn Christian MD PCP: Dr. Blayne Cain MD Status:[facility] Patient Name: Rogerio Garcia Procedure Date: 01/29/2025 11:18 AM Date of : 1945 Age: 79 Procedure: Colonoscopy Indications: Screening for colorectal malignant neoplasm Providers: Shawn Christian MD Referring MD: Shawn Christian MD Medicines: Monitored Anesthesia Care Patient Profile: Refer to note in patient chart for documentation of history and physical. Last Colonoscopy: none. The patient's first colonoscopy is today. Complications: No immediate complications. Estimated blood loss: None. Procedure: Pre-Anesthesia Assessment: - Prior to the procedure, a History and Physical was performed, and patient medications and allergies were reviewed. The patient's tolerance of previous anesthesia was also reviewed. The risks and benefits of the procedure and the sedation options and risks were discussed with the patient. All questions were answered, and informed consent was obtained. Prior Anticoagulants: The patient has taken no anticoagulant or antiplatelet agents. ASA Grade Assessment: II - A patient with mild systemic disease. After reviewing the risks and benefits, the patient was deemed in satisfactory condition to undergo the procedure. After I obtained informed consent, the scope was passed under direct vision. Throughout the procedure, the patient's blood pressure, pulse, and oxygen saturations were monitored continuously. The adult colonoscope was introduced through the anus and advanced to the cecum, identified by appendiceal orifice and ileocecal valve. The ileocecal valve, appendiceal orifice, and rectum were photographed. The entire colon was well visualized. The colonoscopy was performed without difficulty. The patient tolerated the procedure well. The quality of the bowel preparation was adequate. Moderate Sedation: See the other procedure note for documentation of moderate sedation with intraservice time. Scope In: 11:28:22 AM Scope Withdrawal Time 0 hours 10 minutes 55 seconds Scope Out: 11:46:56 AM Total Procedure Duration Time 0 hours 18 minutes 34 seconds Findings: The perianal and digital rectal examinations were normal. Multiple small-mouthed diverticula were found in the sigmoid colon. Internal hemorrhoids were found during anoscopy. The hemorrhoids were mild. The exam was otherwise without abnormality. Impression: - Diverticulosis in the sigmoid colon. - Internal hemorrhoids. - The examination was otherwise normal. - No specimens collected. Recommendation: - Discharge patient to home (ambulatory). - High fiber diet. - Repeat colonoscopy in 10 years for screening purposes. - Return to my office PRN. - Continue present medications. Procedure Code(s): --- Professional --- 21053, Colonoscopy, flexible; diagnostic, including collection of specimen(s) by brushing or washing, when performed (separate procedure) Diagnosis Code(s): --- Professional --- Z12.11, Encounter for screening for malignant neoplasm of colon K57.30, Diverticulosis of large intestine without perforation or abscess without bleeding K64.8, Other hemorrhoids CPT copyright 2021 [employer]. All rights reserved. The codes documented in this report are preliminary and upon marble cutter review may be revised to meet current compliance requirements. Shawn Christian MD 01/29/2025 11:55:51 AM This report has been signed electronically. Number of Addenda: 0 Note Initiated On: 01/29/2025 11:18 AM 01/29/25 1156 Date Shawn Christian MD Cosigner Signature: Date (if indicated) CC: Dr. Shawn Christian MD; Dr. Blayne Cain MD Date Dictated: 01/29/25 1118 Date Transcribed: Laboratory Scientist: SW Signed [facility] MR/POSTOP.ANE 01-29-2025 MR/POSTOP.[facility] Medical Records Department [address] [place] [address] Anesthesia Postop Eval I 01/29/25 1204 MR#: [id number] Acct: [id number] Name: ROGERIO GARCIA Rep #: [id number] : 1945 79 From: Nahomi Boss CRNA PCP: Dr. Blayne Cain MD Status:REG [facility] Race: C Location: [place] [address] Anesthesia: Postop Eval I Current Vital Signs Temperature: 97.9 F Pulse Rate: 70 Blood Pressure: 123/65 Respiratory Rate: 18 Pulse Ox: 93 Assessment Airway patent: Yes Spontaneous unlabored respirations: Yes nausea: No Vomiting: No Anesthesia Complication: No Fluid Hydration Crystalloid volume administer (ml): 400 Total IV fluid infused: 400 Progress Note Anesthesia document: Postop Eval 1 completed: Yes 01/29/251203 Date Nahomi Hawkca REHAB TECH Cosigner Signature: Date CC: Signed [facility] MR/[id number] 01-29-2025 MR/POSTOPAN2 [facility] Medical Records Department [address] [place] [address] Anesthesia Postop Eval II 01/29/25 1254 MR#: [id number] Acct: [id number] Name: ROGERIO GARCIA Rep #: [id number] : 1945 79 From: Ezio Madrigal MD PCP: Dr. Blayne Cain MD Status:[facility] Y Race: C Location: [place] Anesthesia Postop Eval I Sum Postop Eval Completion status Anesthesia document: Postop Eval 1 completed: Yes Anesthesia Postop Eval I Summary Anesthesia Postop Eval I Summary: Anesthesia Postop Eval I: Assessment Summary Airway patent Yes 01/29/25 12:04 REHAB [email or web address].CSIR Spontaneous unlabored Yes 01/29/25 12:04 REHAB TECH.CSIR respirations Mental status nausea No 01/29/25 12:04 REHAB TECH.CSIR Vomiting No 01/29/25 12:04 REHAB [email or web address] Anesthesia Postop Eval I: Fluid Summary Crystalloid volume administer 400 01/29/25 12:04 REHAB TECH.CSIR (ml) Colloids volume administered ( ml) Blood Product volume administered (ml) Total IV fluid infused 400 01/29/25 12:04 REHAB [email or web address].CSIR Anesthesia Postop Eval I: Summary Notes Anesthesia Complication No 01/29/25 12:04 REHAB [email or web address].CSIR Anesthesia Complication Comment: Post-operative progress note Anesthesia: Postop Eval II Evaluation Mental status: Awake Pain Level: 0 nausea: No Vomiting: No 01/29/25 1254 Date Ezio Madrigal MD Cosigner Signature: Date CC: Signed Normal [facility] MR/PATANALISAon 01-25-2025 MR/PAT.[facility] Medical Records Department [address] [place] [address] PAT - Anesthesia 01/25/25 1014 MR#: [id number] Acct: [id number] Name: ROGERIO GARCIA Rep #: [id number] : 1945 79 From: Ezio Madrigal MD PCP: Dr. Blayne Cain MD Status:PRE [facility] Y Race: C Location: EN Pre-Assessment Diagnosis/Proposed Procedure Planned Operative Procedure(s): COLONOSCOPY Anesthesia History Anesthesia History - recenterer: Anesthesia History - recenterer Hx Hospitalization No 01/25/25 08:59 Any Problems With Anesthesia No 01/25/25 08:59 Cholinesterase deficiency No 01/25/25 08:59 You/Your Family Experience No 01/25/25 08:59 fever (hyperthermia) with Relationship Recent Exposure to Contagious No 03/11/21 06:12 Disease Does patient have nerve No 01/25/25 08:59 stimulator Patient instructed to have device shut off --Does patient have Pacemaker or ICD? When Was Last Pacemaker Check QUESTION #4 FULL TEXT: You/Your Family Experience fever (hyperthermia) with Anesthesia Last Oral Intake Last Oral intake: Last Oral Intake NPO since Meds taken in AM with sips of water? Meds patient instructed to take am of surgery PONV PONV - recenterer: PONV - recenterer Female No 01/25/25 08:59 HX of Motion Sickness No 01/25/25 08:59 HX of N/V After Surgery No 01/25/25 08:59 Non-Smoker Yes 01/25/25 08:59 Duration of Surgery greater No 01/25/25 08:59 than 60 minutes Number of Risk Factors 1 01/25/25 08:59 PONV Score Low Risk 01/25/25 08:59 Height Weight Height Weight: Anesthesia: Height Weight Height 5 ft 7 in 01/04/25 14:39 Respiratory Assessment Respiratory Assessment - recenterer: Respiratory Tract Infection Hx - recenterer Hx Respiratory Tract Infection No 01/25/25 08:59 STOP Sleep Apnea STOP Sleep Apnea - recenterer: STOP Sleep Apnea - recenterer Hx Hypertension No 01/25/25 08:59 Hx Sleep Apnea No 01/25/25 08:59 CPAP BIPAP Do you snore loudly (louder No 01/25/25 08:59 than talking or can be heard Do you often feel tired/ No 01/25/25 08:59 fatigued/ sleepy during daytime? Has anyone observed you stop No 01/25/25 08:59 breathing during sleep? STOP Results Negative 01/25/25 08:59 QUESTION #5 FULL TEXT : Do you snore loudly (louder than talking or can be heard through closed doors)? 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 Specify any problems Hx of Preganancy in last 3 N/A 01/25/25 08:59 Months Nurse Filling Out Transfusion JeyZOCARIE 01/25/25 08:59 Questions: Date: 01/25/25 01/25/25 08:59 Time: 09:01 01/25/25 08:59 Patient unable to answer at this time (ie. confused, unrespo /Reproduction History /Reproductive History - recenterer: /Reproductive Hx- recenterer Hx Now No 01/25/25 08:59 Gestational Age (in weeks): EDC: Hx Hx Para Hx Section SAB No 01/25/25 08:59 [facility] History (Updated 01/25/25 @ 08:59 by Pooja Tai) Alcohol use Cardiology follow-up encounter Constipation Wears glasses Prostate disease History of renal disease Easy bruising Non-smoker Leg cramps Bladder diverticulum Ureterolithiasis Epididymitis, right GERD (gastroesophageal reflux disease) HLD (hyperlipidemia) Atherosclerotic heart disease of [place] coronary artery without angina pectoris Home Medications ???Medication ???Instructions ???Recorded ???Last Taken ???Type aspirin 81 mg chewable tablet 81 mg PO DAILY@0800 heart 12/19/13 03/03/21 History multivitamin 1 tab PO DAILY PRN supplement 02/20 02/12 Unknown History atorvastatin 20 mg tablet 20 mg PO QHS dose decreased to 20 08/06/24 Unknown Rx mg #90 tabs magnesium oxide 250 mg PO DAILY 01/25/25 Unknown H istory Allergy/AdvReac Type Severity Reaction Status Date / Time No Known Allergies Allergy Verified 01/25/25 08:47 Family Histor (more content not included)... Normal [facility] Surgery Visit Reporton 01-04 Surgery Visit Report [facility] [address] [place] [address] OFFICE VISIT Date of Service: 01/04/25 MR#: [id number] Acct: [id number] Name: ROGERIO GARCIA Rep #: [id number] : 1945 Provider: Dr. Shawn nieves MD Age/Sex: 79/M Location: [facility] Status: Signed Intake Vital Signs 03/16/24 13:51 01/02/25 07:07 01/04/25 14:39 Height 5 ft 7 in 5 ft 7 in 5 ft 7 in Weight: 157 lb 4 oz BMI 24.6 BP 107/53 L Blood Pressure Location Rt brachial Position Sitting Respiration 17 Pulse 74 Pulse Source Monitor Temp 97.6 F L Temp Source Temporal Pulse Oximetry (%) 100 Oxygen Delivery Method room air Intake Visit Reasons: COLONOSCOPY Chief Complaint: colonoscopy Is patient in pain?: No Allergies No Known Allergies Allergy (Verified 01/04/25 14:40) Medications ???Medication ???Instructions ???Recorded ???Confirmed ???Type aspirin 81 mg chewable tablet 81 mg PO DAILY@0800 heart 12/19/13 01/04/25 History multivitamin 1 tab PO DAILY PRN supplement 02/2001/04/25 History atorvastatin 20 mg tablet 20 mg PO QHS dose decreased to 20 08/06/24 01/04/25 Rx mg #90 tabs Have you fallen in the past year?: No PFSH Medical History (Updated 01/04/25 @ 14:39 by Angelica Valdivia LPN) Constipation Wears glasses Prostate disease History of renal disease Easy bruising Non-smoker Leg cramps Bladder diverticulum Ureterolithiasis Epididymitis, right GERD (gastroesophageal reflux disease) HLD (hyperlipidemia) Atherosclerotic heart disease of [place] coronary artery without angina pectoris Surgical History History of transurethral resection of prostate (02/2021) History of cholecystectomy (10/2020) H/O coronary artery bypass surgery (02/27/99) Family History Father Hx of CABG Mother Hx of CABG CAD (coronary artery disease) Social History Smoking Status: Never smoker alcohol intake: current alcohol intake frequency: a few times a week Alcohol type: wine substance use type: does not use caffeine: No what type of physical activity do you participate in: walking and bicycling frequency: 3-4 times per week duration: 30-45 minutes/day seatbelt use: always do you feel safe at home: Yes HPI HPI HPI: The patient is a 79-year-old male who is being seen today to schedule colonoscopy. Patient states that about 1 to 2 weeks ago he had an episode of abdominal cramping and a lot of gas. This was quite significant to the point where he presented to the emergency room. He was seen and evaluated by the ER staff. Abdominal x-ray was performed and showed findings compatible with constipation. He was told to begin taking MiraLAX daily which has helped tremendously but yet patient still states that he does not feel completely cleared out at this point. He was recommended to follow-up with surgery to schedule colonoscopy to rule out other causes for this acute onset of constipation. He states that he normally is quite regular however this was an abrupt change. Patient wonders if he may have developed a virus which may have contributed to his symptoms. Regardless he presents today for colonoscopy discussion. He has never had a colonoscopy. He is been screened by Cologuard in the past. He states his last Cologuard test was performed probably 5 years ago and was reportedly negative ROS General General: No weight change, appetite, fatigue, colon cancer, breast cancer or weakness HEENT HEENT: No difficulty swallowing, eye injury, eye surgery, swollen glands or hoarseness Endo Endocrine: No thyroid disease, diabetes mellitus (prediabetic), thyroid cancer, Hair loss, heat intolerance or cold intolerance Skin Skin: No rash or changing moles Musc Musculoskeletal: No back problems, arthritis, rheumatoid arthritis, gout or joint pain Cardio Cardiovascular: Yes heart disease; No murmur, pacemaker, atrial fibrillation, high blood pressure, heart attack, heart stent, palpitations, shortness of breath with exertion or chest pain Psych Psychiatric: No depression, anxiety or hearing voices Resp Respiratory: No shortness of breath, No sleep apnea, No cough, No COPD, No asthma, No emphysema and No wheezing Gastro Gastrointestinal: Yes abdominal pain, No nausea or vomiting, No diarrhea, Yes constipation, No blood in stool, No acid reflux, No hemorrhoids, No ulcers, No gallbladder problem and No black,tarry stools Dieter Hematologic: Yes blood thinners Additional Details: aspirin Neuro Neurologic: No numbness, No tingling and No weakness Exam Const General: cooperative, healthy appearing, co (more content not included)... Normal [facility] Abd Inc Decub and/or Erecton 01-02-2025 Abd Inc Decub and/or Erect [facility] Imaging Services [address] [place] [address] Abd Inc Decub and/or Erect MR#: [id number] Acct: [id number] Name: ROGERIO GARCIA Rep #: [id number] : 1945 M 79 From: Dharmesh casillas MD PCP: Dr. Blayne Cain MD Status: REG ER Study: Abd Inc Decub and/or Erect Date of Exam: 01/02 Exam# [id number] Ordering Dr: Justice Guerrero MD PROCEDURE: ABD INC DECUB AND/OR ERECT 01/02/2025 REASON FOR EXAM: NO BM X 1 WEEK TECHNIQUE: Supine and upright views addendum were obtained. COMPARISON: None FINDINGS: Bowel gas: Moderate constipation identified with fecal material distributed throughout the colon. No evidence of bowel obstruction. Calcifications: No suspicious calcifications. Bones: There are degenerative changes of the spine. Dextroscoliosis. Other: Degenerative changes of both hip joints. RAD/Abd Inc Decub and/or Erect IMPRESSION: Constipation. Reading Location: [id number] CC: Dr. Justice Guerrero MD; Dr. Blayne Cain MD Laboratory Scientist: Signed Normal [facility] Emergency Department Summary on 01-02-2025 Emergency Department Summary [facility] Medical Records Department [address] [place] [address] Emergency Department Summary 01/02/25 MR#: [id number] Acct: [id number] Name: ROGERIO GARCIA Rep #: [id number] : 1945 79 From: Justice Guerrero MD PCP: Dr. Blayne Cain MD Status:REG ER Location: ED HPI History of Present Illness Chief Complaint: Constipation Informant: patient Onset/Context/Timing Onset: Days (6-7 days since last bowel movement.) Context: Sudden Onset Timing: Continuous Quality: Constipation, still passing gas Location: Abdomen generalized Current Severity: Mild Maximum Severity: Mild Worsened by: Not having a bowel movement Relieved by: Nothing Associated Symptoms Associated Symptoms: Bloating sensation Narrative Narrative: Patient is a 79-year-old male. He has history of hyperlipidemia and prediabetes. He states he has had weight loss due to change in his diet because of the prediabetes diagnosis. He does have history of coronary disease. He has not had a bowel movement in 6 to 7 days. He is still passing gas. He feels bloated distended. He is status postcholecystectomy. He has no history of bowel obstruction. He denies fever or chills. He denies respiratory symptoms. He denies urologic symptoms. He states he does have pressure in his rectal area. He has not strained because he gets hemorrhoids when he does this. Prior similar symptoms: No Recent Illness/Hospitalizatio n: No PFSH PFSH Medical History Wears glasses Prostate disease History of renal disease Easy bruising Non-smoker Leg cramps Bladder diverticulum Ureterolithiasis Epididymitis, right GERD (gastroesophageal reflux disease) HLD (hyperlipidemia) Atherosclerotic heart disease of [place] coronary artery without angina pectoris Home Medications ???Medication ???Instructions ???Recorded ???Last Taken ???Type aspirin 81 mg chewable tablet 81 mg PO DAILY@0800 heart 12/19/13 03/03/21 History multivitamin 1 tab PO DAILY PRN supplement 02/20 02/12 Unknown History atorvastatin 20 mg tablet 20 mg PO QHS dose decreased to 20 08/06/24 Unknown Rx mg #90 tabs Allergy/AdvReac Type Severity Reaction Status Date / Time No Known Allergies Allergy Verified 01/02/25 07:10 Family History Father Hx of CABG Mother Hx of CABG CAD (coronary artery disease) Surgical History History of transurethral resection of prostate (02/2021) History of cholecystectomy (10/2020) H/O coronary artery bypass surgery (02/27/99) Social History Smoking Status: Never smoker alcohol intake: current alcohol intake frequency: a few times a week Alcohol type: wine substance use type: does not use caffeine: No what type of physical activity do you participate in: walking and bicycling frequency: 3-4 times per week duration: 30-45 minutes/day seatbelt use: always do you feel safe at home: Yes ROS ROS ED Constitutional Constitutional ED: Reports weight loss; Denies chills, fever(s) or subjective Cardiovascular Cardiovascular: Denies chest pain or palpitations Respiratory/Chest Respiratory/Chest: Denies cough, dyspnea or dyspnea on exertion Gastrointestinal Gastrointestinal: Reports abdominal pain and constipation; Denies diarrhea, melena, nausea or vomiting Genitourinary Genitourinary ED: Denies dysuria, hematuria or urinary frequency Musculoskeletal Musculoskeletal: Denies back pain Hematologic/Lymphatic Hematologic/Lymphatic: Reports systems reviewed and no addt'l complaints, except as documented EXAM Physical Exam Const Vital Signs: 01/02/25 07:07 Temperature 97.4 F L Temperature Source Oral Pulse Rate 64 Respiratory Rate 16 Blood Pressure 144/72 H Blood Pressure Mean 96 Pulse Ox 100 Oxygen Delivery Method Room Air Positive well nourished and well developed General Appearance ED: well developed and NAD HEENT Reports moist mucous membranes HEENT Narrative: Head is atraumatic normocephalic. Ears normal. Nares patent. Eyes PERRL and EOMs intact bilaterally General Eye ED: Negative for scleral icterus Neck supple and no JVD Resp normal respiratory effort and clear to auscultation bilaterally Cardio regular rate, regular rhythm, S1 normal heart sound, S2 normal heart sound and no murmurs GI no masses; Negative for normal to inspection, nondistended, normoactive bowel sounds, non-tender, non-distended or hepatosplenomegaly GI Narrative: There is central tamponade. Bowel sounds are slightly decreased. There is minimal periumbilical tenderness. Rectal exam reveals hemorrhoids. There is no bleeding. There is no s (more content not included)... Normal [facility] DXA - AXIAL SKELETONon BD DXA - AXIAL SKELETON * * *Final Report* * * DATE OF EXAM: Oct 11 2024 9:27AM WRB 0804 - BD DXA - AXIAL SKELETON / PROCEDURE REASON: Loss of height * * * * Physician Interpretation * * * * EXAMINATION: DXA BONE DENSITOMETRY BD DXA - AXIAL SKELETON PATIENT DEMOGRAPHICS: Age: 78 years, Gender: Male SCANNER INFORMATION: [id number] Date Scanned: 10/11/2024 9:27 AM CLINICAL HISTORY: SCREENING Loss of height . RISK FACTORS FOR OSTEOPOROSIS AND ASSOCIATED FRACTURES REPORTED BY THIS PATIENT: Please refer to Bone Health Questionnaire in the EMR CURRENT THERAPY: Please refer to Bone Health Questionnaire in the EMR TECHNICAL LIMITATIONS: RESULTS: Lumbar spine (L1, L2, L3, L4): 1.181 g/cm2, T-score 0.8, Z-score 0.9 Right Femoral Neck: 0.689 g/cm2, T-score -1.8, Z-score -0.4 Right Total Hip: 0.907 g/cm2, T-score -0.8, Z-score 0.1 Left Femoral Neck: 0.743 g/cm2, T-score -1.4, Z-score 0.0 Left Total Hip: 0.986 g/cm2, T-score -0.3, Z-score 0.6 No comparison data - the patient has not had a previous bone density in the [facility] or the previous bone density was performed on a different DXA machine (new, updated model or different location) within the [facility]. VERTEBRAL FRACTURE ASSESSMENT Not performed. TRABECULAR BONE ASSESSMENT TBS not performed: not ordered IMPRESSION: THE LOWEST T-SCORE IS -1.8 IN THE RIGHT HIP 1) DIAGNOSIS (based on BMD alone): OSTEOPENIA Caution: Medical conditions other than osteoporosis may cause low bone density, such as osteomalacia or renal osteodystrophy. Clinical correlation is necessary. 2) FRACTURE RISK (based on FRAX): 10-year absolute fracture risk: - major osteoporotic fracture = 7.9 % - hip fracture = 2.7 % - A diagnosis of Osteoporosis, a 10 year probability of hip fracture greater than or equal to 3% or a 10 year probability of any major osteoporosis-related fracture greater than or equal to 20% should be considered for treatment. - DXA scanner generated FRAX calculations may slightly differ from online FRAX calculations due to differences in software versions. - All recommendations and calculations are to be considered as guidelines and should not replace sound clinical judgement - Caution: Fracture risk may be increased independent of BMD in patients with corticosteroid use, age greater than 65 years, or a history of prior fragility fracture. RECOMMENDATIONS: Follow-up in 2 years or as clinically indicated. Patients that are taking corticosteroids, are transplant recipients or have hyperparathyroidism should have annual follow-up. Follow-up scans should always be done on the same machine for accurate comparison. FOR MORE INFORMATION ABOUT DIAGNOSIS AND TREATMENT: [facility]oporosis [facility] Metabolic Bone Disease:? www.ccf.org/arthritis/ osteo National Osteoporosis Foundation:? www.nof.org International Society of Clinical Densitometry www.iscd.org Laboratory Scientist: ANGELES Transcribe Date/Time: Oct 12 2024 3:49P Dictated by : Jey LOVE MD This examination was interpreted and the report reviewed and electronically signed by: Jey LOVE MD on Oct 12 2024 3:52PM EST [id number] -1.8 Normal [facility] Basic metabolic 2000 panelon 09-13-2024 Anion gap [Moles/Vol] 7 mmol/L Low 8-15 [facility] Comment on above: Order Comment: Carolina beebe Type: BLOOD SPECIMEN Ordering Facility: [facility] Address: [address] [place] [address] Performed By: #### 2 4321-2 #### [facility] CLIA [id number] [address] [place] [address] [place] Calcium [Mass/Vol] 9.4 mg/dL Normal 8.5-10.2 [facility] Comment on above: Order Comment: Carolina beebe Type: BLOOD SPECIMEN Ordering Facility: [facility] Address: [address] [place] [address] Performed By: #### 2 4321-2 #### [facility] CLIA [id number] [address] [place] [address] [place] Chloride [Moles/Vol] 105 mmol/L Normal 98-107 [facility] Comment on above: Order Comment: Speci men Type: BLOOD SPECIMEN Ordering Facility: [facility] Address: [address] [place] [address] Performed By: #### 2 4321-2 #### [facility] CLIA [id number] [address] [place] [address] [place] CO2 [Moles/Vol] 31 mmol/L High 22-30 [facility] Comment on above: Order Comment: Speci men Type: BLOOD SPECIMEN Ordering Facility: [facility] Address: [address] [place] [address] Performed By: #### 2 4321-2 #### [facility] CLIA [id number] [address] [place] [address] [place] Creatinine [Mass/Vol] 0.94 mg/dL Normal 0.73-1.22 [facility] Comment on above: Order Comment: Speci men Type: BLOOD SPECIMEN Ordering Facility: [facility] Address: [address] [place] [address] Performed By: #### 2 4321-2 #### [facility] CLIA [id number] [address] [place] [address] [place] Creatinine and Glomerular filtration rate.predicted panel (S/P/Bld) 84 mL/min/1.73m??? Normal >=60 [facility] Comment on above: Order Comment: Speci men Type: BLOOD SPECIMEN Ordering Facility: [facility] Address: [address] [place] [address] Result Comment: Erica mated Glomerular Filtration Rate (eGFR) is calculated using the 2020 CKD-EPI creatinine equation. This equation utilizes serum creatinine, sex, and age as parameters. The creatinine assay has traceable calibration to isotope dilution-mass spectrometry. Refer to KDIGO guidelines for clinical interpretation. In patients with unstable renal function, e.g. those with acute kidney injury, the eGFR may not accurately reflect actual GFR. Performed By: #### 2 4321-2 #### [facility] CLIA [id number] [address] [place] [address] [place] Glucose [Mass/Vol] 114 mg/dL High 74-99 [facility] Comment on above: Order Comment: Specjoya beebe Type: BLOOD SPECIMEN Ordering Facility: [facility] Address: [address] [place] [address] Result Comment: The [place] Diabetes Association (ADA) provides guidance for cutoff values for fasting glucose and random glucose. The ADA defines fasting as no caloric intake for at least 8 hours. Fasting plasma glucose results between 100 to 125 mg/dL indicate increased risk for diabetes (prediabetes). Fasting plasma glucose results greater than or equal to 126 mg/dL meet the criteria for diagnosis of diabetes. In the absence of unequivocal hyperglycemia, results should be confirmed by repeat testing. In a patient with classic symptoms of hyperglycemia or hyperglycemic crisis, random plasma glucose results greater than or equal to 200 mg/dL meet the criteria for diagnosis of diabetes. Reference: Standards of Medical Care in Diabetes 2016, [place] Diabetes Association. Diabetes Care. 2016.39(Suppl 1). Performed By: #### 2 4321-2 #### [facility] CLIA [id number] [address] [place] [address] [place] Potassium [Moles/Vol] 4.3 mmol/L Normal 3.7-5.1 [facility] Comment on above: Order Comment: Carolina beebe Type: BLOOD SPECIMEN Ordering Facility: [facility] Address: [address] [place] [address] Performed By: #### 2 4321-2 #### [facility] CLIA [id number] [address] [place], [place] [id number] [place] Sodium [Moles/Vol] 143 mmol/L Normal 136-144 [facility] Comment on above: Order Comment: Speci men Type: BLOOD SPECIMEN Ordering Facility: [facility] Address: [address] [place] [address] Performed By: #### 2 4321-2 #### [facility] CLIA [id number] [address] [place] [address] [place] Urea nitrogen [Mass/Vol] 23 mg/dL Normal 9-24 [facility] Comment on above: Order Comment: Shitali men Type: BLOOD SPECIMEN Ordering Facility: [facility] Address: [address] [place] [address] Performed By: #### 2 4321-2 #### [facility] CLIA [id number] [address] [place] [address] [place] HbA1c (Bld)on 09-13-2024 Average glucose Estimated from glycated hemoglobin (Bld) [Mass/Vol] 126 mg/dL Normal [facility] Comment on above: Order Comment: Carolina men Type: BLOOD SPECIMENOrdering Facility: [facility] Address: [address] [place] [address] Result Comment: eAG: (Estimated average glucose) is a calculated value from HgbA1c and is signs sales representative of the average blood glucose level in the last 2-3 month period. Performed By: #### 5 5454-3 ####[facility] [id number] [place] [address] [place] HbA1c (Bld) [Mass fraction] 6.0 % High 4.3-5.6 [facility] Comment on above: Order Comment: Carolina men Type: BLOOD SPECIMENOrdering Facility: [facility] Address: [address] [place] [address] Result Comment: Amer [place] Diabetes Association guidelines indicate that patients with HgbA1c in the range 5.7-6.4% are at increased risk for development of diabetes, and intervention by lifestyle modification may be beneficial. HgbA1c greater or equal to 6.5% is considered diagnostic of diabetes. Performed By: #### 5 5454-3 ####[facility] [id number] [address] [address] [place] CNOVon 09-05-2024 CNOV Office Visit (INTMWS ) ROGERIO GARCIA ([id number]) 1945 M Date Time Provider Department 09/05/24 8:40 AM BLAYNE CAIN INTMWS During your visit today, we recorded the following information about you: Pulse Respiration Blood pressure Weight 84/minute 16/minute 112/68 71 kg Height 1.683 m Blayne Cain MD 09/05/2024 9:32 AM Signed Rogerio Garcia is a 78 year old male here for a Medicare wellness visit. Medicare Health Risk Assessment General Health Very good Exercise: Minutes/Day 40 min Exercise: Days/Week 5 days Alcohol: Daily Use 2-3 times a week Alcohol: Drinks/Day 1 or 2 Alcohol: 6 or more drinks Never Feel off balance No Concerns: Teeth/Dentures No Concerns: Sexual function No Troubled by feelings None of the above Frequency: Eating healthy diet Nearly every day ADLs requiring help None of the above Safety precautions in home/vehicle Yes Smoke, vape, chews tobacco No Difficulty hearing No Difficulty seeing No Current Providers Specialists: I have reviewed specialist-related care of the patient in the medical record. Current care team: Patient Care Team: Blayne Cain MD as PCP - General (Internal Medicine) Yoli Huber, DANIEL.SLASHER RUNNER as Contract Post Office Clerk (Internal Medicine) Outside specialists seen: Dr. Gray Abebe, cardiology. Dr. Nigel Ingram, urology. Dr. Tomas Grover, ophthalmology. Medical/Family history review Reviewed and updated problem list, medical/surgical/famil y/social history, medications, and allergies. Opioid use review Opioid Medications (last 90 days) No data to display Anxiety/Depression screening PHQ-9 Score: 0. USHA-7 Score: 0. Recommendation: no further intervention at this time Cognitive screening Mini Cog Score: 5 Cognitive screening reviewed and No further action needed (score 3-5). Functional Observation Was the patient's Timed Up AND Go test unsteady or >= 12 seconds? No Advance Care Planning Surrogate decision maker and/or advance care plan documented Measurements BP 112/68 (BP Site: Left Arm, BP Position: Sitting, BP Cuff Size: Large Adult) Pulse 84 Resp 16 Ht 168.3 cm (5' 6.25) Wt 71 kg (156 lb 8.4 oz) BMI 25.07 kg/m? Vision Screening: Follows with optometry/ophthalmolog y Right: 20/30 Left: 20/ 25 Both: 2025 Assessment/Plan Medicare annual wellness visit, subsequent (Z00.00) - Counseled on healthy diet and regular exercise - Fall avoidance information provided - Personalized prevention plan provided - Vaccines up to date. Blayne Cain MD 09/05/2024 9:12 AM Addendum Fasting labs any time soon. Screening schedule The following prevention plan is recommended: Diabetes Screening due on 03/09/2024 WHAT YOU CAN DO TO PREVENT FALLS Many falls can be prevented. By making some changes, you can lower your chances of falling. Four things YOU can do to prevent falls for you* and your caregiver 1. Begin a regular exercise program Exercise is one of the most important ways to lower your chances of falling. It makes you stronger and helps you feel better. Exercises that improve balance and coordination (like Juan Chi) are the most helpful. Lack of exercise leads to weakness and increases your chances of falling. Ask your doctor or health care provider about the best type of exercise program for you. 2. Have your health care provider review your medicines Have your doctor or pharmacist review all the medicines you take, even dbht-siw-lnaigoj medicines. As you get older, the way medicines work in your body can change. Some medicines, or combinations of medicines, can make you sleepy or dizzy and can cause you to fall. 3. Have your vision checked Have your eyes checked by an eye doctor at least once a year. You may be wearing the wrong glasses or have a condition like glaucoma or cataracts that limits your vision. Poor vision can increase your chances of falling. 4. Make your home safer About half of all falls happen at home. To make your home safer: Remove things you can trip over (like papers, books, clothes, and shoes) from stairs and places where you walk. Remove small throw rugs or use double-sided tape to keep the rugs from slipping. Keep items you use often in cabinets you can reach easily without using a step stool. Have grab bars put in next to your toilet and in the tub or shower. Use non-slip mats in the bathtub and on shower floors. Improve the lighting in your home. As you get older, you need brighter lights to see well. Hang light-weight curtains or shades to reduce glare. Have handrails and lights put in on all staircases. Wear shoes both inside and outside the house. Avoid going barefoot or wearing slippers. For more information, contact: Centers for Disease Control and Prevention www.cdc.gov/injury * This information may not apply if you (more content not included)... Normal [facility] Hemoglobin A1con 08-29-2024 HbA1c (Bld) [Mass fraction] 6.1 % High 3.8-5.6 [facility] Comment on above: Order Comment: Comme nts: elevated blood glucose: results to Cain Result Comment: Norm al < 5.7 % Prediabetic 5.7 - 6.4 % Diabetic >or= 6.5 % Please note range changes. Performed By: #### L 500.3400, L501.9985, L500.4100 #### [facility] [address] [place], [place], [id number] Lipid Profileon 08-29-2024 Cholesterol [Mass/Vol] 136 mg/dL Normal 200 [facility] Comment on above: Order Comment: eleva gala blood glucose: results to Cain Result Comment: <200 mg/dL Desirable 200-240 mg/dL Borderline >240 mg/dL High Risk Performed By: #### L 500.3400, L501.9985, L500.4100 #### [facility] [address] [place], [place], [address] Cholesterol in HDL [Mass/Vol] 44 mg/dL Normal [facility] Comment on above: Order Comment: eleva gala blood glucose: results to Cain Result Comment: The drugs N-Acetylcysteine and Metamizole may falsely depress this assay. Reference Range HDL <40 mg/dL Low HDL Cholesterol HDL >or= 60 mg/dL High HDL Cholesterol Performed By: #### L 500.3400, L501.9985, L500.4100 #### [facility] [address] [place], [address] Cholesterol in LDL [Mass/Vol] 57 mg/dL Normal 0-130 [facility] Comment on above: Order Comment: eleva gala blood glucose: results to Cain Performed By: #### L 500.3400, L501.9985, L500.4100 #### [facility] [address] [place], [address] Cholesterol in VLDL [Mass/Vol] 35 mg/dL Normal 5-40 [facility] Comment on above: Order Comment: eleva gala blood glucose: results to Cain Performed By: #### L 500.3400, L501.9985, L500.4100 #### [facility] [address] [place], [address] Triglyceride [Mass/Vol] 173 mg/dL Normal [facility] Comment on above: Order Comment: eleva gala blood glucose: results to [facility] Result Comment: The drugs N-Acetylcysteine and Metamizole may falsely depress this assay. Serum Triglycerides Reference Interval Normal <150 mg/dL Borderline high 150 - 199 mg/dL High 200 - 499 mg/dL Very High > or = 500 mg/dL Performed By: #### L 500.3400, L501.9985, L500.4100 #### [facility] [address] [place], [address] Liver Profileon 08-29-2024 Albumin [Mass/Vol] 3.5 g/dL Normal 3.2-5.0 [facility] Comment on above: Order Comment: eleva gala blood glucose: results to Cain Performed By: #### L 500.3400, L501.9985, L500.4100 #### [facility] [address] [place], [address] ALK P 76 U/L Normal 45-117 [facility] Comment on above: Order Comment: eleva gala blood glucose: results to Cain Performed By: #### L 500.3400, L501.9985, L500.4100 #### [facility] [address] [place], [address] ALT [Catalytic activity/Vol] 45 U/L Normal 16-61 [facility] Comment on above: Order Comment: eleva gala blood glucose: results to Cain Performed By: #### L 500.3400, L501.9985, L500.4100 #### [facility] [address] [place], [address] AST [Catalytic activity/Vol] 32 U/L Normal 15-37 [facility] Comment on above: Order Comment: eleva gala blood glucose: results to [facility] Result Comment: Slig ht Hemolysis, Result may be falsely increased. Performed By: #### L 500.3400, L501.9985, L500.4100 #### [facility] [address] [place], [address] Bilirubin [Mass/Vol] 0.60 mg/dL Normal 0.20-1.00 [facility] Comment on above: Order Comment: eleva gala blood glucose: results to Cain Result Comment: For patients on eltrombopag therapy, use of Dimension [place] TBIL is not recommended. Performed By: #### L 500.3400, L501.9985, L500.4100 #### [facility] [address] [place], [address] Bilirubin.direct [Mass/Vol] 0.12 mg/dL Normal 0.00-0.30 [facility] Comment on above: Order Comment: eleva gala blood glucose: results to Cain Performed By: #### L 500.3400, L501.9985, L500.4100 #### [facility] [address] [place], [place], [address] Globulin (S) [Mass/Vol] 3.2 g/dL Normal 2.2-4.2 [facility] Comment on above: Order Comment: eleva gala blood glucose: results to Cain Performed By: #### L 500.3400, L501.9985, L500.4100 #### [facility] [address] [place], [place], [id number] T PROT 6.7 g/dL Normal 6.4-8.2 [facility] Comment on above: Order Comment: eleva gala blood glucose: results to Cain Performed By: #### L 500.3400, L501.9985, L500.4100 #### [facility] [address] [place], [address] PSA,Total - Annual Screenon 08-29-2024 PSA,TOT SCREEN 0.38 ng/mL Normal 0.00-4.00 [facility] Comment on above: Result Comment: This test was performed using the TPSA assay method for the [employer] chemistry system. Values obtained with different assay methods cannot be used interchangably. When changing PSA assays in the course of monitoring a patient, additional sequential testing should be carried out to confirm baseline values. Performed By: #### L 501.9910 #### [facility] [address] [place], [place], [address] Norberto 06-07-2024 LUCIEN Telephone (INTMWS) ROGERIO GARCIA ([id number]) 1945 M Date Time Provider Department 06/07/24 BLAYNE CAIN INTERI During your visit today, we recorded the following information about you: Sherry Arellano RN 06/07/2024 1:43 PM Signed Patient calling to let provider know he had the high dose >age 65 flu shot at [facility] today. GAUTAM Muse Helen E, LPN 06/07/2024 3:13 PM Signed Checking Query Imm Registry, it has not been loaded yet, will check again later. Layla Martin LPN, MA 06/08/2024 8:53 AM Signed Added. Allergies As of Date: 06/07/2024 (No Known Allergies) Date Reviewed: 09/01/2023 Reviewed by: Kay Tai LPN - Fully Assessed Reason for Visit: Patient Update [1234] Prescriptions as of 06/08/2024 - atorvastatin (LIPITOR) 20 mg tablet Take 1 tablet by mouth daily at bedtime. For cholesterol. - ASPIRIN 81 MG TAB Take one (1) tablet daily . Problem List As Of Date 06/07/2024 Noted Resolved Atherosclerosis of [place] coronary artery of na*08/02/2005 Other hyperlipidemia [E78.49] 08/02/2005 Cough [R05.9] 11/13/2007 10/14/2016 S/P CABG x 1 [Z95.1] 08/22/1998 Gastroesophageal reflux disease [K21.9] 03/13/2020 Acute low back pain [M54.50] 06/14/2022 08/24/2022 Encounter Status:Closed by LAYLA COHEN on 06/08/24 [facility] CNNURSEon 05-24-2024 CNNURSE Nurse Visit (FAMPWS) ROGERIO GARCIA ([id number]) 1945 M Date Time Provider Department 05/24/24 10:30 AM LA NURSE CAROLANN During your visit today, we recorded the following information about you: Vikki Caba LPN 05/24/2024 10:58 AM Signed Patient presents for COVID vaccine. Denies any problems at this time. Tolerated injection well. Vikki Caba LPN Allergies As of Date: 05/24/2024 (No Known Allergies) Date Reviewed: 09/01/2023 Reviewed by: Kay Tai LPN - Fully Assessed Reason for Visit: Imm/Inj [58] Visit Diagnosis:Encounter for immunization [Z23] Order(s):[facility] COVID-19 VACCINE AGE 12+ YR (COMIRNATY) [25859NRL] Order #: [id number] Prescriptions as of 05/24/2024 - atorvastatin (LIPITOR) 20 mg tablet Take 1 tablet by mouth daily at bedtime. For cholesterol. - ASPIRIN 81 MG TAB Take one (1) tablet daily . Problem List As Of Date 05/24/2024 Noted Resolved Atherosclerosis of [place] coronary artery of na*08/02/2005 Other hyperlipidemia [E78.49] 08/02/2005 Cough [R05.9] 11/13/2007 10/14/2016 S/P CABG x 1 [Z95.1] 08/22/1998 Gastroesophageal reflux disease [K21.9] 03/13/2020 Acute low back pain [M54.50] 06/14/2022 08/24/2022 Encounter Status:Closed by VIKKI CABA on 05/24/24 Normal [facility] Cardiology Visit Reporton Cardiology Visit Report [facility] [address] [place], [place] [address] OFFICE VISIT Date of Service: 03/16/24 MR#: [id number] Acct: [id number] Name: ROGERIO GARCIA Rep #: [id number] 1945 Provider: Dr. Gray Abebe MD Age/Sex: 78/M Location: [facility] Status: Signed HPI HPI History of Present Illness Details: ROGERIO GARCIA, is a 78 M who presents to the office today for a follow-up visit as well as preoperative testing for surgery. He is a gentleman with a history of coronary artery disease status post remote coronary artery bypass surgery with a left internal mammary artery to the left anterior descending artery. He returns for a preoperative cardiovascular visit as well as his routine visit. He still exercises quite a bit and he has had no neck arm or jaw discomfort suggest angina no dizziness or diaphoresis no near syncope or syncope. He has had some left shoulder discomfort. His last stress test was in 2021 where he exercised to 13.4 metabolic equivalents. 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 He therefore clocks in a certain high number of steps each day. His physical exam is otherwise unremarkable. Intake Vital Signs 03/03/23 14:12 03/16/24 13:51 Height 5 ft 7 in 5 ft 7 in Weight: 158 lb 9 oz BMI 24.8 BP 96/50 L Blood Pressure Location Lt brachial Position Sitting Respiration 16 Pulse 83 Pulse Source Monitor Intake Visit Reasons: 1 Y FU w DIGITAL SPECIALIST per DIGITAL SPECIALIST Performance Consultant Required: No Accompanied by: Self Is patient in pain?: No Allergies No Known Allergies Allergy (Verified 03/16/24 13:53) Medications ???Medication ???Instructions ???Recorded ???Confirmed ???Type aspirin 81 mg chewable tablet 81 mg PO DAILY@0800 heart 12/19/13 03/16/24 History atorvastatin 20 mg tablet 20 mg PO QHS dose decreased to 20 08/18/23 03/16/24 Rx mg #90 tabs multivitamin 1 tab PO DAILY PRN supplement 03/16/24 03/16/24 History Have you fallen in the past year?: No PFSH Medical History Wears glasses Prostate disease History of renal disease Easy bruising Non-smoker Leg cramps Bladder diverticulum Ureterolithiasis Epididymitis, right GERD (gastroesophageal reflux disease) HLD (hyperlipidemia) Atherosclerotic heart disease of [place] coronary artery without angina pectoris Surgical History History of transurethral resection of prostate (02/2021) History of cholecystectomy (10/2020) H/O coronary artery bypass surgery (02/27/99) Family History Father Hx of CABG Mother Hx of CABG CAD (coronary artery disease) Social History Smoking Status: Never smoker alcohol intake: current alcohol intake frequency: a few times a week Alcohol type: wine substance use type: does not use caffeine: No what type of physical activity do you participate in: walking and bicycling frequency: 3-4 times per week duration: 30-45 minutes/day seatbelt use: always do you feel safe at home: Yes ROS Const Const: Negative for fatigue, weakness, headache(s), daytime sleepiness or difficulty sleeping ENT ENT: Negative for headache(s), dizziness or Nosebleed/epistaxis Cardio Chest Pain: No Palpitations: No Edema: None Resp Respiratory: Negative for SOB with activity, SOB at rest, SOB orthopnea SOB lying down or Cough GI GI: Negative nausea, vomiting or heartburn Neuro Neuro: Positive for lightheadedness (briefly at times); Negative for dizziness, near syncope, headache(s) or weakness Endo Endo: Negative for fatigue Cardiology Exam Const Appearance: cooperative, healthy appearing, no acute distress, well developed and well groomed Nutritional Appearance: average body habitus and well nourished Orientation: alert, awake and oriented x3 Head Head: normal to inspection, normocephalic and atraumatic Ears: hearing grossly normal bilaterally and external ears normal Nose: external nose normal, nares normal, nasal mucous membranes and turbinates normal, septum normal and no nasal discharge Face and Sinus: face symmetric Mouth: oral mucosae normal, tongue normal, oropharynx normal and moist mucous membranes Teeth and gingiva: dentition normal Throat: posterior oropharynx normal, tonsils normal and uvula midline Eyes General: appearance normal, both eyes and all related structures Eyelids: eyelids normal Conjunctivae: conjunctivae normal Pupils: PERRL, normal by confrontation and accommodation normal EOM: EOM intact bilaterally Neck Neck: normal visual inspection, trachea midline and no JVD JVD: +5 Carotids: normal carotid upstroke an (more content not included)... Normal [facility] Lipid Profileon 02-17-2024 Cholesterol [Mass/Vol] 137 mg/dL Normal 200 [facility] Comment on above: Result Comment: <200 mg/dL Desirable 200-240 mg/dL Borderline >240 mg/dL High Risk Performed By: #### L 500.3400, L500.4100 #### [facility] [address] [place], [address] Cholesterol in HDL [Mass/Vol] 42 mg/dL Normal [facility] Comment on above: Result Comment: The drugs N-Acetylcysteine and Metamizole may falsely depress this assay. Reference Range HDL <40 mg/dL Low HDL Cholesterol HDL >or= 60 mg/dL High HDL Cholesterol Performed By: #### L 500.3400, L500.4100 #### [facility] [address] [place], [address] Cholesterol in LDL [Mass/Vol] 68 mg/dL Normal 0-130 [facility] Comment on above: Performed By: #### L 500.3400, L500.4100 #### [facility] [address] [place], [address] Cholesterol in VLDL [Mass/Vol] 27 mg/dL Normal 5-40 [facility] Comment on above: Performed By: #### L 500.3400, L500.4100 #### [facility] [address] [place], [address] Triglyceride [Mass/Vol] 137 mg/dL Normal [facility] Comment on above: Result Comment: The drugs N-Acetylcysteine and Metamizole may falsely depress this assay. Serum Triglycerides Reference Interval Normal <150 mg/dL Borderline high 150 - 199 mg/dL High 200 - 499 mg/dL Very High > or = 500 mg/dL Performed By: #### L 500.3400, L500.4100 #### [facility] [address] [place], [address] Liver Profileon 02-17-2024 Albumin [Mass/Vol] 3.6 g/dL Normal 3.2-5.0 [facility] Comment on above: Performed By: #### L 500.3400, L500.4100 #### [facility] [address] [place], [address] ALK P 77 U/L Normal 45-117 [facility] Comment on above: Performed By: #### L 500.3400, L500.4100 #### [facility] [address] [place], [address] ALT [Catalytic activity/Vol] 41 U/L Normal 16-61 [facility] Comment on above: Performed By: #### L 500.3400, L500.4100 #### [facility] [address] [place], [address] AST [Catalytic activity/Vol] 29 U/L Normal 15-37 [facility] Comment on above: Result Comment: Slig ht Hemolysis, Result may be falsely increased. Performed By: #### L 500.3400, L500.4100 #### [facility] [address] [place], [address] Bilirubin [Mass/Vol] 0.70 mg/dL Normal 0.20-1.00 [facility] Comment on above: Result Comment: For patients on eltrombopag therapy, use of Dimension [place] TBIL is not recommended. Performed By: #### L 500.3400, L500.4100 #### [facility] [address] [place], [address] Bilirubin.direct [Mass/Vol] 0.18 mg/dL Normal 0.00-0.30 [facility] Comment on above: Performed By: #### L 500.3400, L500.4100 #### [facility] [address] [place], [address] Globulin (S) [Mass/Vol] 3.2 g/dL Normal 2.2-4.2 [facility] Comment on above: Performed By: #### L 500.3400, L500.4100 #### [facility] [address] [place], [address] T PROT 6.8 g/dL Normal 6.4-8.2 [facility] Comment on above: Performed By: #### L 500.3400, L500.4100 #### [facility] [address] [place], [address] Basophil percentageOrdered B y: [place] Mis on 08-25-2023 Cholesterol [Mass/Vol] 174 mg/dL <200 [facility] Comment on above: <200 mg/dL Desirable 200-240 mg/dL Borderline >240 mg/dL High Risk Triglyceride [Mass/Vol] 124 mg/dL <199 [facility] Comment on above: The drugs N-Acetylcy steine and Metamizole may falsely depress this assay.Serum Triglycerides Reference Interval Normal <150 mg/dL Borderline high 150 - 199 mg/dL High 200 - 499 mg/dL Very High > or = 500 mg/dL Serum or plasma cholesterol in HDL measurement (mass/volume)Ordered By: Gray Mis on 08-25-2023 Cholesterol in HDL [Mass/Vol] 43 mg/dL >40 [facility] Comment on above: The drugs N-Acetylcy steine and Metamizole may falsely depress this assay. Reference Range HDL <40 mg/dL Low HDL Cholesterol HDL >or= 60 mg/dL High HDL Cholesterol Serum or plasma cholesterol in VLDL measurement (mass/volume)Ordered By: Gray Mis on 08-25-2023 Cholesterol in VLDL [Mass/Vol] 25 mg/dL 5-40 [facility] Serum or plasma low density lipoprotein (LDL) cholesterol measurement (mass/volume)Ordered By: Gray Mis on 08-25-2023 Cholesterol in LDL [Mass/Vol] 106 mg/dL 0-130 [facility] FECAL IMMUNOCHEMICAL TEST (F IT)on 03-29-2023 FECAL OCCULT BLOOD Negative [facility] Basophil percentageOrdered B y: [place] Mis on 03-04-2023 WBC (Bld) [#/Vol] 6.9 10*3/uL 4.4-11.0 [facility] Bilirubin [Mass/Vol] 0.80 mg/dL 0.20-1.00 [facility] Comment on above: For patients on eltr ombopag therapy, use of Dimension [place] TBIL is not recommended. Chloride [Moles/Vol] 106 mmol/L 98-107 [facility] Cholesterol [Mass/Vol] 85 mg/dL <200 [facility] Comment on above: <200 mg/dL Desirable 200-240 mg/dL Borderline >240 mg/dL High Risk Glucose [Mass/Vol] 101 mg/dL 74-106 [facility] Comment on above: Fasting Glucose resu lt from 100 to 125 mg/dL suggests IMPAIRED HOMEOSTASIS per A.D.A. criteria. Potassium [Moles/Vol] 4.1 mmol/L 3.5-5.1 [facility] Protein [Mass/Vol] 6.7 g/dL 6.4-8.2 [facility] Sodium [Moles/Vol] 139 mmol/L 136-145 [facility] Triglyceride [Mass/Vol] 164 mg/dL <199 [facility] Comment on above: The drugs N-Acetylcy steine and Metamizole may falsely depress this assay.Serum Triglycerides Reference Interval Normal <150 mg/dL Borderline high 150 - 199 mg/dL High 200 - 499 mg/dL Very High > or = 500 mg/dL Blood erythrocytes count (nu mber/volume)Ordered By: Gray Abebe on 03-04-2023 RBC (Bld) [#/Vol] 5.02 10*6/uL 4.6-6.2 [facility] Blood hemoglobin measurement (mass/volume)Ordered By: Gray Abebe on 03-04-2023 Hemoglobin (Bld) [Mass/Vol] 14.6 g/dL 13.0-16.5 [facility] Blood platelet mean volumeOr dered By: Gray Abebe on 03-04-2023 Platelet mean volume (Bld) [Entitic vol] 11.1 fL 6.2-12.0 [facility] Determination of erythrocyte mean corpuscular volume (MCV)Ordered By: Gray Abebe on 03-04-2023 MCV (RBC) [Entitic vol] 89.4 fL 80-94 [facility] Direct bilirubinOrdered By: Gray Abebe on 03-04-2023 Bilirubin.direct [Mass/Vol] 0.19 mg/dL 0.00-0.30 [facility] Hematocrit Auto (Bld) [Volum e fraction]Ordered By: Gray Abebe on 03-04-2023 Hematocrit (Bld) [Volume fraction] 44.9 % 40-54 [facility] - Chemistry and C hemistry - challengeOrdered By: Gray Abebe on 03-04-2023 ALP [Catalytic activity/Vol] 163 U/L 45-117 [facility] ALT [Catalytic activity/Vol] 35 U/L 16-61 [facility] CO2 [Moles/Vol] 30.0 mmol/L 21.0-32.0 [facility] Globulin (S) [Mass/Vol] 3.9 g/dL 2.2-4.2 [facility] Urea nitrogen/Creatinine [Mass ratio] 13.6 mg/mg 10-20 [facility] - Hematology and Cell countsOrdered By: Gray Abebe on 03-04-2023 Erythrocyte distribution width (RBC) [Entitic vol] 45.8 fL 35.1-43.9 [facility] Erythrocyte distribution width (RBC) [Ratio] 14.0 % 11.6-14.6 [facility] MCH (RBC) [Entitic mass] 29.1 pg 27.0-32.0 [facility] MCHC Auto (RBC) [Mass/Vol]Or dered By: Gray Abebe on 03-04-2023 MCHC (RBC) [Mass/Vol] 32.5 g/dL 32-36 [facility] No Panel InformationOrdered By: Gray Abebe on 03-04-2023 Estimated GFR (MDRD) Amer 91 mL/min >60 [facility] Comment on above: GFR Calc Estimated GFR (MDRD) Non-Af Amer 75 mL/min >60 [facility] Comment on above: Non- GFR Calc Thyroid Stimulating Hormone (TSH) 2.64 uIU/mL 0.358-3.74 [facility] Platelets bldOrdered By: Leny Abebe on 03-04-2023 Platelets (Bld) [#/Vol] 201 10*3/uL 150-450 [facility] Serum or plasma albumin yahir urement (mass/volume)Ordered By: Gray Abebe on 03-04-2023 Albumin [Mass/Vol] 2.8 g/dL 3.2-5.0 [facility] Serum or plasma calcium yahir urement (mass/volume)Ordered By: Gray Abebe on 03-04-2023 Calcium [Mass/Vol] 8.3 mg/dL 8.5-10.1 [facility] Serum or plasma cholesterol in HDL measurement (mass/volume)Ordered By: Gray Abebe on 03-04-2023 Cholesterol in HDL [Mass/Vol] 12 mg/dL >40 [facility] Comment on above: The drugs N-Acetylcy steine and Metamizole may falsely depress this assay. Reference Range HDL <40 mg/dL Low HDL Cholesterol HDL >or= 60 mg/dL High HDL Cholesterol Serum or plasma cholesterol in VLDL measurement (mass/volume)Ordered By: Gray Abebe on 03-04-2023 Cholesterol in VLDL [Mass/Vol] 33 mg/dL 5-40 [facility] Serum or plasma creatinine m easurement (mass/volume)Ordered By: Gray Abebe on 03-04-2023 Creatinine [Mass/Vol] 1.03 mg/dL 0.70-1.30 [facility] Comment on above: The validity of the calculated GFR & GFRAA in patients over 70 years has not been determined. Clinical correlation is essential. Serum or plasma low density lipoprotein (LDL) cholesterol measurement (mass/volume)Ordered By: Gray Abebe on 03-04-2023 Cholesterol in LDL [Mass/Vol] 40 mg/dL 0-130 [facility] Serum or plasma urea nitroge n measurement (mass/volume)Ordered By: Gray Abebe on 03-04-2023 Urea nitrogen [Mass/Vol] 14 mg/dL 7-18 [facility] Thin prep Papanicolaou smear with manual screeningOrdered By: Gray Abebe on 03-04-2023 Thin prep Papanicolaou smear with manual screening 29 U/L 15-37 [facility] Thin prep Papanicolaou smear with manual screening 3 5-15 [facility] No Panel Informationon 08-19 Prostate Specific Antigen Screen 0.50 ng/mL 0.00-4.00 [facility] Work Phone: Comment on above: This test was perfor med using the TPSA assay method [facility] the[facility]. Values obtained with differentassay methods cannot be used interchangably.When changing PSA assays in the course of monitoring apatient, additional sequential testing should be carriedout to confirm baseline values. Basophil percentageon 2021 Bilirubin [Mass/Vol] 1.10 mg/dL 0.20-1.00 [facility] Work Phone: [phone] Comment on above: For patients on eltr ombopag therapy, use of Dimension [place] TBIL is not recommended. Cholesterol [Mass/Vol] 125 mg/dL <200 [facility] Work Phone: Comment on above: <200 mg/dL Desirable 200-240 mg/dL Borderline >240 mg/dL High Risk Protein [Mass/Vol] 6.8 g/dL 6.4-8.2 [facility] Work Phone: [phone] Triglyceride [Mass/Vol] 114 mg/dL <199 [facility] Work Phone: [phone] Comment on above: The drugs N-Acetylcy steine and Metamizole may falsely depress this assay.Serum Triglycerides Reference Interval Normal <150 mg/dL Borderline high 150 - 199 mg/dL High 200 - 499 mg/dL Very High > or = 500 mg/dL Direct bilirubinon 2 Bilirubin.direct [Mass/Vol] 0.22 mg/dL 0.00-0.30 [facility] Work Phone: [phone] Laboratory - Chemistry and C hemistry - challengeon 03-16-2022 ALP [Catalytic activity/Vol] 82 U/L 45-117 [facility] Work Phone: [phone] ALT [Catalytic activity/Vol] 46 U/L 16-61 [facility] Work Phone: [phone] Globulin (S) [Mass/Vol] 3.0 g/dL 2.2-4.2 [facility] Work Phone: [phone] Serum or plasma albumin yahir urement (mass/volume)on 03-16-2022 Albumin [Mass/Vol] 3.8 g/dL 3.2-5.0 [facility] Work Phone: Serum or plasma cholesterol in HDL measurement (mass/volume)on 03-16-2022 Cholesterol in HDL [Mass/Vol] 43 mg/dL >40 [facility] Work Phone: Comment on above: The drugs N-Acetylcy steine and Metamizole may falsely depress this assay. Reference Range HDL <40 mg/dL Low HDL Cholesterol HDL >or= 60 mg/dL High HDL Cholesterol Serum or plasma cholesterol in VLDL measurement (mass/volume)on 03-16-2022 Cholesterol in VLDL [Mass/Vol] 23 mg/dL 5-40 [facility] Work Phone: Serum or plasma low density lipoprotein (LDL) cholesterol measurement (mass/volume)on 03-16-2022 Cholesterol in LDL [Mass/Vol] 59 mg/dL 0-130 [facility] Work Phone: Thin prep Papanicolaou smear with manual screeningon 03-16-2022 Thin prep Papanicolaou smear with manual screening 31 U/L 15-37 [facility] Work Phone: CNNURSEon 12-16-2020 CNNURSE Nurse Visit (COVAMD) ROGERIO GARCIA ([id number]) 1945 [place] [id number] Date Time Provider Department 12/16/20 10:00 AM COVID VACCINE [facility] COVAMD During your visit today, we recorded the following information about you: Referring Provider: MK SINGH JR [[id number]] Allergies As of Date: 12/16/2020 (No Known Allergies) Date Reviewed: 04/23/2020 Reviewed by: Kay Tai LPN - Fully Assessed Order(s):[facility] COVID-19 VACCINE [[id number]] Order #: [id number] Prescriptions as of 12/16/2020 Sig: OMEPRAZOLE MAGNESIUM 20 MG TA* Take 1 tablet by mouth once d* ATORVASTATIN 40 MG TABLET Take 40 mg by mouth daily at * ASPIRIN 81 MG TABLET Take one (1) tablet daily . Problem List As Of Date 12/16/2020 Noted Resolved Atherosclerosis of [place] coronary artery of na*08/02/2005 Other hyperlipidemia [E78.49] 08/02/2005 Cough [R05] 11/13/2007 10/14/2016 S/P CABG x 1 [Z95.1] 08/22/1998 Gastroesophageal reflux disease [K21.9] 03/13/2020 Encounter Status:Closed by [facility] Nurse Visit (COVAMD) ROGERIO GARCIA ([id number]) 1945 M Date Time Provider Department 11/13/20 MK SINGH JR During your visit today, we recorded the following information about you: Allergies As of Date: 11/13/2020 (No Known Allergies) Date Reviewed: 04/23/2020 Reviewed by: Kay Tai LPN - Fully Assessed Order(s):[facility] SARS-COV-2 VACCINE 2D DOSE APPT [[id number]] Order #: [id number] Prescriptions as of 11/13/2020 Sig: OMEPRAZOLE MAGNESIUM 20 MG TA* Take 1 tablet by mouth once d* ATORVASTATIN 40 MG TABLET Take 40 mg by mouth daily at * ASPIRIN 81 MG TABLET Take one (1) tablet daily . Problem List As Of Date 11/13/2020 Noted Resolved Atherosclerosis of [place] coronary artery of na*08/02/2005 Other hyperlipidemia [E78.49] 08/02/2005 Cough [R05] 11/13/2007 10/14/2016 S/P CABG x 1 [Z95.1] 08/22/1998 Gastroesophageal reflux disease [K21.9] 03/13/2020 Encounter Status:[facility] CNNURSEon 10-23-2020 [facility] Nurse Visit (COVAMD) ROGERIO GARCIA ([id number]) 1945 M Date Time Provider Department 10/23/20 10:25 AM COVID VACCINE [facility] During your visit today, we recorded the following information about you: Referring Provider: SELF [[id number]] Allergies As of Date: 10/23/2020 (No Known Allergies) Date Reviewed: 04/23/2020 Reviewed by: Kay Tai ARTIST AND REPERTOIRE MANAGER - Fully Assessed Order(s):[facility] COVID-19 VACCINE [[id number]] Order #: [id number] [facility] SARS-COV-2 VACCINE 2D DOSE APPT [[id number]] Order #: [id number] FUTURE Prescriptions as of 10/23/2020 Sig: OMEPRAZOLE MAGNESIUM 20 MG TA* Take 1 tablet by mouth once d* ATORVASTATIN 40 MG TABLET Take 40 mg by mouth daily at * ASPIRIN 81 MG TABLET Take one (1) tablet daily . Problem List As Of Date 10/23/2020 Noted Resolved Atherosclerosis of [place] coronary artery of na*08/02/2005 Other hyperlipidemia [E78.49] 08/02/2005 Cough [R05] 11/13/2007 10/14/2016 S/P CABG x 1 [Z95.1] 08/22/1998 Gastroesophageal reflux disease [K21.9] 03/13/2020 Encounter Status:[facility] Lab Report: Lipid Profileon 08-10-2017 Cholesterol 141 mg/dL Invalid Interpretation Code 200 [facility] Work Phone: [phone] HDL Cholesterol 44 mg/dL Invalid Interpretation Code [facility] Work Phone: LDL Cholesterol 73 mg/dL Invalid Interpretation Code 0-130 [facility] Work Phone: [phone] Triglyceride 119 mg/dL Invalid Interpretation Code [facility] Phone: [phone] very low density lipoproteins 24 mg/dL Invalid Interpretation Code 5-40 [facility] Phone: [phone] Lab Report: Liver Profileon 08-10-2017 Alanine aminotransferase (ALT) 58 U/L Invalid Interpretation Code 12-78 [facility] Work Phone: [phone] Albumin 3.6 g/dL Invalid Interpretation Code 3.4-5.0 [facility] Phone: [phone] Alkaline phosphatase (ALP) 96 U/L Invalid Interpretation Code 45-117 [facility] Work Phone: [phone] Aspartate aminotransferase (AST) 39 U/L High 15-37 [facility] Phone: [phone] Bilirubin (direct) 0.15 mg/dL Invalid Interpretation Code 0.00-0.30 [facility] Work Phone: [phone] Bilirubin (total) 0.80 mg/dL Invalid Interpretation Code 0.20-1.00 [facility] Phone: [phone] Globulin 3.3 g/dL Invalid Interpretation Code 2.2-4.2 [facility] Phone: [phone] Protein 6.9 g/dL Invalid Interpretation Code 6.4-8.2 [facility] Phone: [phone] Office Visiton 01-06-2017 Documentation of current medications (procedure) Done Invalid Interpretation Code [facility] Phone: [phone] Fall risk assessment No Invalid Interpretation Code [facility] Phone: [phone] Clinical Lists Update: 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 01-05-2017 Left ventricular Ejection fraction 60 % Invalid Interpretation Code [facility] Phone: [phone] Clinical Lists Update: 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 10-12-2016 Cholesterol 132 mg/dL Invalid Interpretation Code [facility] Phone: [phone] HDL Cholesterol 41 mg/dL Invalid Interpretation Code [facility] Phone: [phone] LDL Cholesterol 70 mg/dL Invalid Interpretation Code [facility] Work Phone: [phone] Triglyceride 104 mg/dL Invalid Interpretation Code [facility] Work Phone: [phone] very low density lipoproteins 21 mg/dL Invalid Interpretation Code [facility] Work Phone: [phone] External Other: Preferred Me thod of Contacton 05-04-2016 methcontact phone [facility] Phone: [phone] Patient's prefered method of contact phone Invalid Interpretation Code [facility] Work Phone: [phone] Office Visiton 04-30-2016 Documentation of current medications (procedure) Done Invalid Interpretation Code [facility] Work Phone: [phone] Tobacco smoking status MOIS Tobacco smoking status NHIS Invalid Interpretation Code [facility] Phone: [phone] Tobacco smoking status [facility] Former smoker [facility] Work Phone: [phone] Tobacco use [facility] Former smoker Invalid Interpretation Code [facility] Work Phone: [phone] Lab Report: Lipid Profileon 04-27-2016 Cholesterol [Mass/Vol] 131 mg/dL 200 [facility] Work Phone: [phone] Cholesterol in HDL [Mass/Vol] 39 mg/dL Low [facility] Work Phone: [phone] Cholesterol in LDL [Mass/Vol] 68 mg/dL 0-130 [facility] Work Phone: [phone] Lipoprotein.pre-beta [Mass/Vol] 24 mg/dL 5-40 [facility] Work Phone: [phone] Triglyceride [Mass/Vol] 119 mg/dL [facility] Work Phone: [phone] Lab Report: Liver Profileon 10-09-2015 Albumin [Mass/Vol] 3.9 g/dL Invalid Interpretation Code 3.4-5.0 [facility] Work Phone: [phone] Alkaline phosphatase (ALP) 92 U/L Invalid Interpretation Code 50-136 [facility] Work Phone: [phone] ALP (Bld) [Catalytic activity/Vol] 92 U/L 50-136 [facility] Work Phone: [phone] ALT [Catalytic activity/Vol] 46 U/L Invalid Interpretation Code 12-78 [facility] Work Phone: [phone] AST [Catalytic activity/Vol] 26 U/L Invalid Interpretation Code 15-37 [facility] Work Phone: [phone] Bilirubin [Mass/Vol] 0.80 mg/dL Invalid Interpretation Code 0.20-1.00 [facility] Work Phone: [phone] Bilirubin.direct [Mass/Vol] 0.19 mg/dL Invalid Interpretation Code 0.00-0.30 [facility] Work Phone: [phone] Globulin 2.8 g/dL Invalid Interpretation Code 2.3-3.5 [facility] Work Phone: [phone] Globulin (S) [Mass/Vol] 2.8 g/dL 2.3-3.5 [facility] Work Phone: [phone] Protein [Mass/Vol] 6.7 g/dL Invalid Interpretation Code 6.4-8.2 [facility] Work Phone: [phone] Lab Report: Liver Profileon 10-08-2014 ALK P 99 U/L 50-136 [facility] Work Phone: [phone] GE use only - for Link[employer] import when terms are not otherwise specified 99 U/L Invalid Interpretation Code 50-136 [facility] Work Phone: [phone] Office Visiton 10-01-2014 cardiac risk group C Invalid Interpretation Code [facility] Work Phone: [phone] General cardiovascular disease 10Y risk [#] Selig[place].D'Agostino N/A Invalid Interpretation Code [facility] Work Phone: [phone] Lab Report: BMPon 01-01-2013 Calcium [Mass/Vol] 8.6 mg/dL Normal 8.5-10.1 [facility] Work Phone: [phone] Chloride [Moles/Vol] 104 mmol/L Normal 98-[address] [facility] Work Phone: [phone] Creatinine [Mass/Vol] 1.0 mg/dL Normal 0.8-1.3 [facility] Work Phone: [phone] Glucose 97 mg/dL Normal 70-110 [facility] Work Phone: [phone] Glucose [Mass/Vol] 97 mg/dL Normal 70-110 [facility] Work Phone: [phone] Potassium [Moles/Vol] 4.5 mmol/L Normal 3.5-5.1 [facility] Work Phone: [phone] Sodium [Moles/Vol] 141 mmol/L Normal 136-145 [facility] Work Phone: [phone] Urea nitrogen [Mass/Vol] 12 mg/dL Normal 7-18 [facility] Work Phone: [phone] Lab Report: CBCDon 3 Erythrocytes (RBC) 5.69 10*6/uL Normal 4.6-6.[address] [facility] Work Phone: [phone] Hematocrit (Bld) [Volume fraction] 48.7 % Normal 40-54 [facility] Work Phone: [phone] Hematocrit (HCT) 48.7 % Normal 40-54 [facility] Work Phone: [phone] Hemoglobin (Bld) [Mass/Vol] 16.2 g/dL Normal 13.0-16.5 [facility] Work Phone: [phone] Platelets 172 10*3/mm3 Normal 150-450 [facility] Work Phone: [phone] Platelets (Bld) [#/Vol] 172 10*3/mm3 Normal 150-450 [facility] Work Phone: [phone] RBC (Bld) [#/Vol] 5.69 10*6/uL Normal 4.6-6.2 [facility] Work Phone: [phone] WBC (Bld) [#/Vol] 4.6 10*3/uL Normal 4.4-11.0 [facility] Work Phone: [phone] WBC (Leukocytes) 4.6 10*3/uL Normal 4.4-11.0 [facility] Work Phone: [phone] Vital Signs Date Time Vital Sign Value Performing Clinician Facility 01-29-2025 12:18-0400 Body temperature 98.3 [degF] Dr. Blayne Cain MD Work Phone: 4(146)397-747488 [place] [address] 01-29-2025 12:18-0400 Diastolic blood pressure 81 mm[Hg] Dr. Blayne Cain MD Work Phone: 4(831)731-595388 [place] [address] 01-29-2025 12:18-0400 Heart rate 56 /min Dr. Blayne Cain MD Work Phone: 1(075)917-263288 [place] [address] 01-29-2025 12:18-0400 Respiratory rate 16 /min Dr. Blayne Cain MD Work Phone: 6(550)289-485088 [place] [address] 01-29-2025 12:18-0400 SaO2% (BldA) [Mass fraction] 98 % Dr. Blayne Cain MD Work Phone: 1(156)620-827288 [place] [address] 01-29-2025 12:18-0400 Systolic blood pressure 127 mm[Hg] Dr. Blayne Cain MD Work Phone: 9(137)472-485888 [place] [address] 01-29-2025 10:29-0400 Body height 170.[address] Blayne Cain MD Work Phone: 9(544)788-870788 [place] [address] 01-29-2025 10:29-0400 Body mass index (BMI) [Ratio] 23.8 kg/m2 Dr. Blayne Cain MD Work Phone: 6(921)247-322788 [place] [address] 01-29-2025 10:29-0400 Body weight 69.[address] Blayne Cain MD Work Phone: 5(230)664-933088 [place] [address] 01-04-2025 14:39-0400 Body height 170.[address] Blayne Cain MD Work Phone: 5(859)645-399988 [place] [address] 01-04-2025 14:39-0400 Body mass index (BMI) [Ratio] 24.6 kg/m2 Dr. Blayne Cain MD Work Phone: 5(763)379-992188 [place] [address] 01-04-2025 14:39-0400 Body temperature 97.6 [degF] Dr. Blayne Cain MD Work Phone: 9(935)212-796050 [place] [address] 01-04-2025 14:39-0400 Body weight 71.[address] Blayne Cain MD Work Phone: 9(177)485-275288 [place] [address] 01-04-2025 14:39-0400 Diastolic blood pressure 53 mm[Hg] Dr. Blayne Cain MD Work Phone: 6(731)180-471388 [place] [address] 01-04-2025 14:39-0400 Heart rate 74 /min Dr. Blayne Cain MD Work Phone: 0(362)173-080588 [place] [address] 01-04-2025 14:39-0400 Respiratory rate 17 /min Dr. Blayne Cain MD Work Phone: 2(841)359-978088 [place] [address] 01-04-2025 14:39-0400 SaO2% (BldA) [Mass fraction] 100 % Dr. Blayne Cain MD Work Phone: 8(243)734-390488 [place] [address] 01-04-2025 14:39-0400 Systolic blood pressure 107 mm[Hg] Dr. Blayne Cain MD Work Phone: 1(588)363-564488 [place] [address] 01-02-2025 08:43-0400 Body temperature 97.8 [degF] Dr. Blayne Cain MD Work Phone: 8(869)883-105988 [place] [address] 01-02-2025 08:43-0400 Diastolic blood pressure 74 mm[Hg] Dr. Blayne Cain MD Work Phone: 4(373)382-002888 [place] [address] 01-02-2025 08:43-0400 Heart rate 61 /min Dr. Blayne Cain MD Work Phone: 3(487)068-774088 [place] [address] 01-02-2025 08:43-0400 Respiratory rate 16 /min Dr. Blayne Cain MD Work Phone: 7(324)802-618888 [place] [address] 01-02-2025 08:43-0400 SaO2% (BldA) [Mass fraction] 99 % Dr. Blayne Cain MD Work Phone: 0(326)322-967988 [place] [address] 01-02-2025 08:43-0400 Systolic blood pressure 138 mm[Hg] Dr. Blayne Cain MD Work Phone: [facility] 01-02-2025 07:07-0400 Body height 170.[address] Blayne Cain MD Work Phone: [facility] 01-02-2025 07:07-0400 Body mass index (BMI) [Ratio] 24.4 kg/m2 Dr. Blayne Cain MD Work Phone: [facility] 01-02-2025 07:07-0400 Body weight 70.[address] Blayne Cain MD Work Phone: [facility] 09-05-2024 08:32-0500 Body height 168.3 cm Blayne Cain MD Work Phone: [facility] 09-05-2024 08:32-0500 Body mass index (BMI) [Ratio] 25.07 kg/m2 Blayne Cain MD Work Phone: [facility] 09-05-2024 08:32-0500 Body weight 71 kg Blayne Cain MD Work Phone: [facility] 09-05-2024 08:32-0500 Diastolic blood pressure 68 mm[Hg] Blayne Cain MD Work Phone: [facility] 09-05-2024 08:32-0500 Heart rate 84 /min Blayne Cain MD Work Phone: [facility] 09-05-2024 08:32-0500 Respiratory rate 16 /min Blayne Cain MD Work Phone: [facility] 09-05-2024 08:32-0500 Systolic blood pressure 112 mm[Hg] Blayne Cain MD Work Phone: [facility] 03-03-2023 14:20-0400 Body weight 72.[address] Blayne Cain Work Phone: [facility] 03-03-2023 14:20-0400 Diastolic blood pressure 63 mm[Hg] Dr. Blayne Cain Work Phone: [facility] 03-03-2023 14:20-0400 Heart rate 67 /min Dr. Blayne Cain Work Phone: [facility] 03-03-2023 14:20-0400 Respiratory rate 16 /min Dr. Blayne Cain Work Phone: [facility] 03-03-2023 14:20-0400 Systolic blood pressure 113 mm[Hg] Dr. Blayne Cain Work Phone: [facility] 03-03-2023 14:12-0400 Body height 170.[address] Blayne Cain Work Phone: [facility] 06-01-2022 08:05-0400 Body height 167.6 cm Blayne Cain MD Work Phone: [facility] 06-01-2022 08:05-0400 Body temperature 97.39 [degF] Blayne Cain MD Work Phone: [facility] 06-01-2022 08:05-0400 Body weight 70.76 kg Blayne Cain MD Work Phone: [facility] 06-01-2022 08:05-0400 Diastolic blood pressure 62 mm[Hg] Blayne Cain MD Work Phone: [facility] 06-01-2022 08:05-0400 Heart rate 72 /min Blayne Cain MD Work Phone: [facility] 06-01-2022 08:05-0400 Respiratory rate 16 /min Blayne Cain MD Work Phone: [facility] 06-01-2022 08:05-0400 Systolic blood pressure 110 mm[Hg] Blayne Cain MD Work Phone: [facility] 05-27-2022 09:00-0400 Body temperature 97.9 [degF] Anh Garces APRN.CNP Work Phone: [facility] 05-27-2022 09:00-0400 Body weight 71.67 kg 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 Work Phone: [facility] 05-27-2022 09:00-0400 Diastolic blood pressure 66 mm[Hg] 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 Blayne Cain Work Phone: [facility] Work Phone: 03-12-2022 15:10-0400 Body mass index (BMI) [Ratio] 24.5 kg/m2 Dr. Blayne Cain Work Phone: [facility] Work Phone: 03-12-2022 15:10-0400 Body weight 71.[address] Blayne Cain Work Phone: [facility] Work Phone: 03-12-2022 15:10-0400 Diastolic blood pressure 67 mm[Hg] Dr. Blayne Cain Work Phone: [facility] Work Phone: 03-12-2022 15:10-0400 Heart rate 74 /min Dr. Blayne Cain Work Phone: [facility] Work Phone: 03-12-2022 15:10-0400 Respiratory rate 16 /min Dr. Blayne Cain Work Phone: [facility] Work Phone: 03-12-2022 15:10-0400 SaO2% (BldA) [Mass fraction] 96 % Dr. Blayne Cain Work Phone: [facility] Work Phone: 03-12-2022 15:10-0400 Systolic blood pressure 122 mm[Hg] Dr. Blayne Cain Work Phone: [facility] Work Phone: 01-06-2017 11:47-0400 BMI (Body Mass Index) 24.83 kg/m2 [facility] Work Phone: 01-06-2017 11:47-0400 Body weight 72.98 kg Anastacia Craig [facility] Work Phone: 01-06-2017 11:47-0400 BP Diastolic 62 mm[Hg] [facility] Work Phone: 01-06-2017 11:47-0400 BP Systolic 110 mm[Hg] [facility] Work Phone: 01-06-2017 11:47-0400 Height 171.45 cm Anast[facility] Work Phone: 01-06-2017 11:47-0400 Pulse (Heart Rate) 64 /min [facility] Work Phone: 01-06-2017 11:47-0400 Respiratory Rate 17 /min [facility] Work Phone: 01-06-2017 11:47-0400 Weight 72.98 kg Anastacia Craig [facility] Work Phone: 04-30-2016 13:43-0400 BMI (Body Mass Index) 24.53 kg/m2 Natividad Catherine RN [facility] Work Phone: 04-30-2016 13:43-0400 Body weight 72.12 kg Natividad Catherine RN [facility] Work Phone: 04-30-2016 13:43-0400 BP Diastolic 58 mm[Hg] Natividad Catherine RN [facility] Work Phone: 04-30-2016 13:43-0400 BP Systolic 106 mm[Hg] Natividad Catherine RN [facility] Work Phone: 04-30-2016 13:43-0400 BSA (Body Surface Area) 1.85 m2 Natividad Catherine RN [facility] Work Phone: 04-30-2016 13:43-0400 Height 171.45 cm Natividad Catherine RN [facility] Work Phone: 04-30-2016 13:43-0400 Pulse (Heart Rate) 72 /min Natividad Catherine RN [facility] Work Phone: 04-30-2016 13:43-0400 Respiratory Rate 16 /min Natividad Catherine RN [facility] Work Phone: 04-30-2016 13:43-0400 Weight 72.12 kg Gray Abebe MD [facility] Work Phone: 04-24-2015 13:42-0400 Pulse Oximetry 98 % Natividad Catherine RN [facility] Work Phone: Encounters Encounter Date Encounter Type Care Provider Facility Start: 01-29-2025 ambulatory Blayne Maldonado ty:[facility] Start: 01-29-2025 Non-patient / Non-visit Dr. Shawn Christian MD -[facility] Start: 01-29-2025 End: 01-29-2025 Admission to same day surgery center Dr. Shawn Christian MD -Endoscopy Work Phone: Start: 01-29-2025 End: 01-29-[address] Blayne Cain MD Work Phone: [facility] Work Phone: Start: 01-04-2025 End: 01-04-[address] Blayne Cain MD Work Phone: [facility] Work Phone: Comment on above: STACEY STONE RN ( Chart review review per request of payor ) Start: 01-04-2025 End: 01-04-[address] Shawn Christian MD -[facility] Work Phone: Start: 01-02-2025 End: 01-02-2025 Emergency department patient visit Dr. Blayne Cain MD Work Phone: -Emergency Department Work Phone: Start: 12-27-2024 Non-patient / Non-visit Dr. Patricio moody MD -[facility] Start: 12-27-2024 Registered Referred Self Referred [facility] Work Phone: Start: 12-27-2024 ambulatory Blayne Cain Facili ty:[facility] Start: 10-18-2024 End: 10-18-2024 Follow-up encounter Blayne Cain MD Work Phone: [facility] Comment on above: Osteopenia, senile ( Primary Dx) Start: 10-11-2024 End: 10-11-2024 ambulatory BLAYNE CAIN Facility:[facility] Start: 09-17-2024 End: 09-17-2024 ambulatory Blayne Cain MD Work Phone: [facility] Comment on above: Blood test results Start: 09-13-2024 End: 09-13-2024 ambulatory BLAYNE CAIN Facility:[facility] Start: 09-05-2024 End: 09-05-2024 ambulatory BLAYNE CAIN Facility:[facility] Start: 09-05-2024 End: 09-05-2024 Patient encounter procedure Blayne Cain MD Work Phone: [facility] Comment on above: Medicare annual well ness visit, subsequent (Primary Dx); Screening for depression; Encounter for screening examination for other mental health and behavioral disorders; Elevated hemoglobin A1c; Atherosclerosis of [place] coronary artery of [place] heart without angina pectoris; Other hyperlipidemia; Loss of height; Paronychia of third toe; Outbursts of anger Start: 08-29-2024 End: 08-29-2024 ambulatory Blayne Cain Facility:[facility] Start: 06-07-2024 End: 06-08-2024 Telephone encounter Blayne Cain MD Work Phone: [facility] Comment on above: Patient Update Start: 05-24-2024 End: 05-24-2024 ambulatory BLAYNE CAIN Facility:[facility] Start: 05-24-2024 End: 05-24-2024 Nursing evaluation of patient and report Mi Nurse Work Phone: Family [facility] Comment on above: Encounter for immuni zation Start: 03-16-2024 End: 03-16-2024 ambulatory Gray Mis Facility:[facility] Start: 02-24-[facility] Start: 02-17-2024 End: 02-17-2024 [facility] Facility:[facility] Start: 08-25-2023 End: 08-25-2023 ambulatory [facility] Work Phone: Start: 08-25-2023 End: 08-25-2023 Patient encounter procedure [facility] Work Phone: Start: 06-24-2023 End: 06-24-2023 ambulatory [facility] Work Phone: [facility] Start: 03-29-2023 Telephone encounter Blayne burns MD Work Phone: Internal [facility] Comment on above: Results Start: 03-07-2023 ambulatory Blayne malone MD Work Phone: Internal [facility] Comment on above: Blood test Start: 03-04-2023 End: 03-04-[address] Blayne Cain Work Phone: [facility] Work Phone: Start: 03-04-2023 End: 03-04-[address] Blayne Cain Work Phone: [facility] Work Phone: Start: 03-03-[address] Hiro Cain Work Phone: [facility] Start: 03-03-2023 End: 03-03-2023 Admission to same day surgery center Dr. Blayne Cain Work Phone: [facility] Start: 03-03-2023 End: 03-03-[address] Blayne Cain Work Phone: [facility] Work Phone: Start: 12-20-2022 End: 12-20-2022 Nursing evaluation of patient and report Mi Nurse Work Phone: [facility] Comment on above: Need for vaccination (Primary Dx) Start: 09-20-2022 Telephone encounter Blayne burns MD Work Phone: Internal [facility] Comment on above: Orders Start: 09-13-2022 End: 09-13-2022 Nursing evaluation of patient and report Mi Nurse Work Phone: [facility] Comment on above: Encounter for immuni zation (Primary Dx) Start: 08-30-2022 Telephone encounter Blayne burns MD Work Phone: Internal [facility] Comment on above: Orders Start: 08-19-2022 End: 08-19-2022 ambulatory [facility] Work Phone: Start: 08-19-2022 End: 08-19-2022 Patient encounter procedure [facility] Start: 06-14-2022 End: 06-14-2022 ambulatory Radha Law PT Work Phone: [facility] Comment on above: Acute low back pain, unspecified back pain laterality, unspecified whether sciatica present Start: 06-01-2022 End: 06-01-2022 Patient encounter procedure Blayne Cain MD Work Phone: [facility] [place] Comment on above: Medicare annual well ness visit, subsequent (Primary Dx); Need for influenza vaccination; Need for COVID-19 vaccine; Septic olecranon bursitis of left elbow; Other hyperlipidemia Start: 05-27-2022 End: 05-27-2022 Patient encounter procedure Anh Mili SERRANO Work Phone: [facility] [place] Comment on above: Septic olecranon bur sitis of left elbow (Primary Dx) Start: 04-07-2022 Non-patient / Non-visit Dr. Evie Cain Work Phone: [facility] Start: 04-07-2022 End: 04-07-[address] Blayne Cain Work Phone: [facility] Work Phone: Start: 04-07-2022 End: 04-07-[address] Blayne Cain Work Phone: [facility] Start: 03-16-2022 End: 03-16-[address] Blayne Cain Work Phone: [facility] Start: 03-12-2022 End: 03-12-[address] Blayne Cain Work Phone: [facility] Start: 12-25-2021 ambulatory Darshana Louis MA [facility] Comment on above: Population Health Na vigation Outreach (humana care gaps) Procedures Date Procedure Procedure Detail Performing Clinician Start: 01-29-[address] Blayne Cain MD Work Phone: Start: 01-02-2025 Plain X-ray abdomen Dr. Blayne Cain MD Work Phone: Start: 09-05-2024 Adult depression scr eening assessment Blayne Cain MD Work Phone: Start: 05-24-2024 PFIZER-[employer]als COVI D-19 VACCINE AGE 12+ YR (COMIRNATY) Blayne Cain MD Work Phone: Start: 06-24-2023 INFLUENZA VACCINE, P RSV FREE, AGE 65+ YR, HIGH DOSE, QUADRIVALENT (FLUZONE HIGH-DOSE) Blayne Cain MD Work Phone: Start: 03-17-2023 Hemoglobin.gastroint estina l.lower [Presence] in Stool by Immunoassay [facility] Provider Start: 06-01-2022 PFIZER-[employer] [place] COVI D-19 BIVALENT BOOSTER VACCINE, AGE 12+ YR Blayne Cain MD Work Phone: Start: 06-01-2022 INFLUENZA SEASONAL QUADRIVALENT HIGH DOSE AGE 65+ Blayne Cain MD Work Phone: Start: 04-07-2022 Radionuclide imaging of perfusion of myocardium under exercise stress Dr. Blayne Cain Work Phone: Start: 05-06-2021 Adult depression scr eening assessment Darshanalinda Martinesyuniel HORNER Start: 05-04-2021 Lipid 1996 panel - S ginna or Plasma Immunization [facility] Work Phone: Start: 04-11-2017 End: 08-10-2017 *Hepatic Function Panel [facility] Start: 04-11-2017 End: 08-10-2017 Lipid panel [AGGREGATE] [facility] Start: 01-06-2017 End: 01-06-2017 Documentation of current medications Anastacia Srinivasan Start: 01-06-2017 End: 01-06-2017 DIGITAL SPECIALIST Gray Abebe MD Start: 01-06-2017 End: 01-06-2017 Follow Up Appt 6 months [facility] Start: 10-15-2016 End: 01-06-2017 *Hepatic Function Panel [facility] Start: 10-15-2016 End: 01-06-2017 Lipid panel [AGGREGATE] [facility] Start: 04-30-2016 End: 04-30-2016 Documentation of current [...] [AGGREGATE] [facility] Start: 09-28-2013 End: 10-05-2016 SASHA Abebe MD Start: 09-28-2013 End: 10-05-2016 Follow [...] Gray Abebe MD Start: 10-11-2012 End: 10-11-2012 DIGITAL SPECIALIST Gray Abebe MD Start: 10-11-2012 End: 10-11-2012 Follow Up Appt 6 months [facility] Start: 10-02-2012 Coronary artery bypa ss graft CORONARY ARTERY BYPASS GRAFT, HX OF Natividad Catherine RN Start: 02-27-1999 History of coronary artery bypass grafting H/O coronary artery bypass surgery Dr. Blayne Cain Work Phone: Comment on above: CABG x 1 [facility]AD 02/27/1999 Start: 08-22-1998 History of coronary artery bypass grafting S/P CABG x 1 Darshana Louis MA Plan of Treatment Date Care Activity Detail Author Start: 09-13-2032 Urine microalbumin profile [facility] Start: 09-13-2027 Diabetes Screening Diabetes Screenin g [facility] Start: 05-04-2026 Lipid 1996 panel - S ginna or Plasma Lipid Screening [facility] Start: 05-04-2026 LIPID SCREEN LIPID SCREEN [facility] Start: 09-06-2025 End: 09-06-2025 Patient encounter procedure 09/06/2025 3:00 PM EST Office Visit [facility] [address] [place] [address] Blayne Cain MD [address] [place] [address] Wellness [facility] Comment on above: Wellness Start: 09-05-2025 Annual PCP Team Buffing [facility] Disease Visit Annual PCP Team Chronic Disease Visit [facility] Start: 09-05-2025 Anxiety Screening Anxiety Screening [facility] Start: 09-05-2025 Depression Screening Depression Scre ening [facility] Start: 08-29-2025 Hepatitis B surface antibody level LDL Cholesterol [facility] Start: 01-29-2025 [facility] Start: 01-02-2025 [facility] [place] Start: 11-22-2024 Covid-19 Vaccine () Covid-19 Vaccine () [facility] Start: 10-11-2024 End: 10-11-2024 Patient encounter procedure 10/11/2024 8:55 AM EST Appointment Radiology [address] [place] [id number] Loss of height [R29.890] Radiology Comment on above: Loss of height [R29. 890] Start: 09-06-2024 End: 12-06-2024 Basic metabolic 2000 panel - Serum or Plasma BASIC METABOLIC PANEL Lab Routine Elevated hemoglobin A1c Expected: 09/06/2024, Expires: 12/06/2024 [facility] Work Phone: Comment on above: Expected: 09/06/2024 , Expires: 12/06/2024 Start: 09-06-2024 End: 12-06-2024 Hemoglobin A1c in Blood HEMOGLOBIN A1C Lab Routine Elevated hemoglobin A1c Expected: 09/06/2024, Expires: 12/06/2024 [facility] Comment on above: Expected: 09/06/2024 , Expires: 12/06/2024 Start: 09-05-2024 End: 09-05-2024 Patient encounter procedure 09/05/2024 8:40 AM EST Office Visit [facility] [address] [facility] [place] [address] Blayne Cain MD [address] [place] [address] Medicare Wellness [facility] Comment on above: Medicare Wellness Start: 09-01-2024 Annual PCP Team Buffing [facility] Disease Visit Annual PCP Team Chronic Disease Visit [facility] Start: 08-25-2024 Hepatitis B surface antibody level LDL Cholesterol [facility] Start: 04-22-2024 Influenza vaccination Influenza Vacc ine (#1) [facility] Start: 03-17-2024 COLORECTAL CANCER SCREENING COLORECTAL CANCER SCREENING [facility] Start: 03-17-2024 FECAL OCCULT BLOOD FECAL OCCULT BLOO D [facility] Start: 03-09-2024 DIABETES SCREEN DIABETES SCREEN [facility] Start: 03-09-2024 Diabetes Screening Diabetes Screenin g [facility] Start: 06-01-2023 ANNUAL PCP TEAM HEMATOLOGY NURSE EDUCATOR RAY DISEASE VISIT ANNUAL PCP TEAM CHRONIC DISEASE VISIT [facility] Start: 05-27-2023 ANNUAL PCP TEAM HEMATOLOGY NURSE EDUCATOR RAY DISEASE VISIT ANNUAL PCP TEAM CHRONIC DISEASE VISIT [facility] Start: 05-06-2023 COLOGUARD (FIT-DNA) COLOGUARD (FIT-D NA) [facility] Start: 05-06-2023 COLORECTAL CANCER SCREENING COLORECTAL CANCER SCREENING [facility] Start: 04-22-2023 Covid-19 Vaccine ( season) Covid-19 Vaccine ( season) [facility] Start: 04-22-2023 Influenza vaccination INFLUENZA (#1) [facility] Start: 03-16-2023 Hepatitis B surface antibody level LDL CHOLESTEROL [facility] Start: 11-30-2022 SHINGRIX VACCINE (2 of 2) PINK GRIX VACCINE (2 of 2) [facility] Start: 11-19-2022 Hzv zoster vacc recombinant adjuvanted im njx ZOSTER VACC RECOMBINANT,IM Immunization/Injection Routine Need for vaccination Expected: 11/19/2022 (Approximate) [facility] Work Phone: Comment on above: Expected: 11/19/2022 (Approximate) Start: 10-02-2022 COVID-19 VACCINE (5 - Pfizer series) COVID-19 VACCINE (5 - Pfizer series) [facility] Start: 08-22-2022 ADVANCE DIRECTIVE DISCUSSION ADVANCE DIRECTIVE DISCUSSION [facility] Start: 08-22-2022 DEPRESSION [facility]ESSMENT [facility] Start: 05-08-2022 ANNUAL PCP TEAM HEMATOLOGY NURSE EDUCATOR RAY DISEASE VISIT ANNUAL PCP TEAM CHRONIC DISEASE VISIT [facility] Start: 05-06-2022 Adult depression scr eening assessment DEPRESSION SCREENING [facility] Start: 05-04-2022 Hepatitis B surface antibody level LDL CHOLESTEROL [facility] Start: 04-22-2022 Influenza vaccination [facility] Start: 09-26-2021 COVID-19 VACCINE (4 - Booster for Pfizer series) COVID-19 VACCINE (4 - Booster for Pfizer series) [facility] Start: 08-22-2021 ADVANCE DIRECTIVE DISCUSSION ADVANCE DIRECTIVE DISCUSSION [facility] Start: 08-22-2021 DEPRESSION ASSESSMENT [facility] Start: 04-23-2021 PNEUMOCOCCAL: 65+ (2 - PCV) PNEUMOCOCCAL: 65+ (2 - PCV) [facility] Start: 08-18-2017 End: 08-18-2017 Appointment Appointment [facility] Work Phone: Start: 08-18-2017 End: 08-18-2017 Appointment Appointment [facility] Work Phone: Start: 04-11-2017 End: 08-10-2017 *Hepatic Function Panel *Hepatic Function Panel [facility] Work Phone: Start: 04-11-2017 End: 08-10-2017 Lipid panel [AGGREGATE] *Lipid Profile CC PCP [facility] Work Phone: Start: 01-06-2017 End: 01-06-2017 Appointment Appointment [facility] Work Phone: Start: 01-06-2017 End: 01-06-2017 Appointment Appointment [facility] Work Phone: Start: 01-06-2017 End: 01-06-2017 DIGITAL SPECIALIST DIGITAL SPECIALIST [facility] Work Phone: Start: 01-06-2017 End: 01-06-2017 Follow Up Appt 6 months Follow Up Appt 6 months [facility] Work Phone: Start: 10-15-2016 End: 10-05-2016 *Hepatic Function Panel *Hepatic Function Panel [facility] Work Phone: Start: 10-15-2016 End: 10-05-2016 Lipid panel [AGGREGATE] *Lipid Profile CC PCP [facility] Work Phone: Start: 04-30-2016 End: 10-05-2016 DIGITAL SPECIALIST DIGITAL SPECIALIST [facility] Work Phone: Start: 04-30-2016 End: 01-06-2017 Follow Up Appt 6 months Follow Up Appt 6 months [facility] Work Phone: Start: 04-22-2016 End: 04-29-2016 Lipid panel [AGGREGATE] *Lipid Profile CC PCP [facility] Work Phone: Start: 10-21-2015 End: 10-21-2015 DIGITAL SPECIALIST DIGITAL SPECIALIST [facility] Work Phone: Start: 10-21-2015 End: 10-21-2015 Follow Up Appt 6 months Follow Up Appt 6 months [facility] Work Phone: Start: 10-08-2015 End: 10-09-2015 *Hepatic Function Panel *Hepatic Function Panel [facility] Work Phone: Start: 10-08-2015 End: 10-09-2015 Lipid panel [AGGREGATE] *Lipid Profile CC PCP [facility] Work Phone: Start: 04-24-2015 End: 04-24-2015 DIGITAL SPECIALIST DIGITAL SPECIALIST [facility] Work Phone: Start: 04-24-2015 End: 04-24-2015 Follow Up Appt 6 months Follow Up Appt 6 months [facility] Work Phone: Start: 04-07-2015 End: 04-07-2015 *Hepatic Function Panel *Hepatic Function Panel [facility] Work Phone: Start: 04-07-2015 End: 04-07-2015 Lipid panel [AGGREGATE] *Lipid Profile CC PCP [facility] Work Phone: Start: 10-02-2014 End: 10-01-2014 *Hepatic Function Panel *Hepatic Function Panel [facility] Work Phone: Start: 10-02-2014 End: 10-01-2014 Lipid panel [AGGREGATE] *Lipid Profile CC PCP [facility] Work Phone: Start: 10-01-2014 End: 10-08-2014 *Hepatic Function Panel *Hepatic Function Panel [facility] Work Phone: Start: 10-01-2014 End: 10-01-2014 DIGITAL SPECIALIST DIGITAL SPECIALIST [facility] Work Phone: Start: 10-01-2014 End: 10-01-2014 Follow Up Appt 6 months Follow Up Appt 6 months [facility] Work Phone: Start: 10-01-2014 End: 10-08-2014 Lipid panel [AGGREGATE] *Lipid Profile CC PCP [facility] Work Phone: Start: 11-20-2013 End: 11-27-2013 *Hepatic Function Panel *Hepatic Function Panel [facility] Work Phone: Start: 11-20-2013 End: 11-27-2013 Lipid panel [AGGREGATE] *Lipid Profile CC PCP [facility] Work Phone: Start: 09-28-2013 End: 10-05-2016 DIGITAL SPECIALIST DIGITAL SPECIALIST [facility] Work Phone: Start: 09-28-2013 End: 10-05-2016 Follow Up Appt 1 year Follow Up Appt 1 year [facility] Work Phone: Start: 05-22-2013 End: 05-28-2013 *Hepatic Function Panel *Hepatic Function Panel [facility] Work Phone: Start: 05-22-2013 End: 05-28-2013 Lipid panel [AGGREGATE] *Lipid Profile CC PCP [facility] Work Phone: Start: 02-12-2013 End: 02-21-2013 *Hepatic Function Panel *Hepatic Function Panel [facility] Work Phone: Start: 02-12-2013 End: 02-21-2013 Lipid panel [AGGREGATE] *Lipid Profile [employer] [facility] Work Phone: Start: 01-01-2013 End: 01-01-2013 *BMP *BMP [facility] Work Phone: Start: 01-01-2013 End: 01-01-2013 *CBC with Differential *CBC with Differential [facility] Work Phone: Start: 01-01-2013 End: 01-01-2013 *CRPHS - C-reactive protein, high sensitivity (hsCRP) *CRPHS - C-reactive protein, high sensitivity (hsCRP) [facility] Work Phone: Start: 01-01-2013 End: 01-01-2013 *Hepatic Function Panel *Hepatic Function Panel [employer] Work Phone: Start: 01-01-2013 End: 01-01-2013 Lipid panel [AGGREGATE] *Lipid Profile [employer] [employer] [facility] Work Phone: Start: 12-25-2012 End: 12-15-2012 Echocardiography Echocardiogram (complete) [facility] Work Phone: Start: 12-25-2012 End: 12-15-2012 Nuclear stress test -exercise Nuclear stress test -exercise [facility] Work Phone: Start: 10-11-2012 End: 10-11-2012 DIGITAL SPECIALIST DIGITAL SPECIALIST [facility] Work Phone: Start: 10-11-2012 End: 10-11-2012 Follow Up Appt 6 months Follow Up Appt 6 months [employer] Work Phone: Start: 2007 RSV Vaccine (1 - 1-d ose 60+ series) RSV Vaccine (1 - 1-dose 60+ series) [facility] Start: 12-11-1997 SHINGRIX VACCINE (1 of 2) PINK GRIX VACCINE (1 of 2) [facility] Start: 12-11-1992 COLOGUARD (FIT-DNA) COLOGUARD (FIT-D NA) [facility] Start: 12-11-1992 Colonoscopy COLONOSCOPY [facility] Start: 12-11-1992 COLORECTAL CANCER SCREENING COLORECTAL CANCER SCREENING [facility] Start: 12-11-[address] [facility] Start: 12-11-1992 FECAL OCCULT BLOOD FECAL OCCULT BLOO D [facility] Start: 12-11-1992 SIGMOIDOSCOPY SIGMOIDOSCOPY Eris hartley [facility] Start: 12-11-1966 Urine microalbumin profile DTAP,TDAP ,TD (1 - Tdap) [facility] Start: 12-11-1965 Anxiety Screening Anxiety Screening [facility] Start: 12-11-1965 Depression Screening Depression Scre ening [facility] End: 10-05-2025 DXA Skeletal system.axial Views for bone density DXA-AXIAL SKELETON Radiology Routine Loss of height 1 Occurrences starting 09/05/2024 until 10/05/2025 [facility] Comment on above: 1 Occurrences starti ng 09/05/2024 until 10/05/2025 Patient Education [facility] Work Phone: Patient referral [facility] Work Phone: PT PLAN OF CARE CERTIFICATION PT PLAN OF CARE CERTIFICATION Procedures Routine Acute low back pain, unspecified back pain laterality, unspecified whether sciatica present Ordered: 06/14/2022 [facility] Work Phone: Comment on above: Ordered: 06/14/2022 Radionuclide imaging of perfusion of myocardium under exercise stress [facility] Work Phone: Tdap vaccine 7 yrs/> im TDAP VAC CINE AGE 7+ IM Immunization/Injection Routine Encounter for immunization Ordered: 08/30/2022 [facility] Work Phone: Comment on above: Ordered: 08/30/2022 [facility] Immunizations Immunization Date Immunization Notes Care Provider Fa cili 06-07-2024 influenza virus vaccine, unspecified formulation Blayne Cain MD Work Phone: [facility] 05-24-2024 COVID-19 vaccine, ag e 12+ yr ([employer] [facility]) Nm Nurse Work Phone: [facility] 09-15-2023 respiratory syncytia l virus (RSV) vaccine, bivalent (ABRYSVO) Blayne Cain MD Work Phone: [facility] 09-01-2023 COVID-19 vaccine, ag e 12+ yr (PFIZER-BIONTECH COMIRNATY) Nm Nurse Work Phone: [facility] 06-24-2023 influenza (HD-IIV4) vaccine, age 65+ yr, high dose, quadrivalent, PF (FLUZONE HIGH-DOSE) Immunization [facility] Work Phone: [facility] Work Phone: 06-24-2023 influenza virus vaccine, unspecified formulation Nm Nurse Work Phone: [facility] 12-20-2022 zoster vaccine recombinant Nm Nurse Work Phone: [facility] Work Phone: 10-05-2022 zoster vaccine recombinant Nm Nurse Work Phone: [facility] Work Phone: 09-20-2022 zoster vaccine recombinant Blayne Cain MD Work Phone: [facility] Work Phone: 09-13-2022 tetanus toxoid, redu rozina diphtheria toxoid, and acellular pertussis vaccine, adsorbed Nm Nurse Work Phone: [facility] Work Phone: 06-29-2022 pneumococcal (PCV20) vaccine, 20 valent (PREVNAR 20) Blayne Cain MD Work Phone: [facility] Work Phone: 06-01-2022 COVID-19 booster vaccine, age 12+ yr, bivalent ([employer]BIONTECH) Blayne Cain MD Work Phone: [facility] Work Phone: 06-01-2022 influenza, high-dose , quadrivalent vaccine (FLUZONE HIGH DOSE QUADRIVALENT) Blayne Cain MD Work Phone: [facility] Work Phone: 12-16-2020 COVID-19 vaccine, ag e 12+ yr (PFIZER-BIONTECH - PURPLE TOP) Darshana Louis MA [facility] Work Phone: 10-23-2020 COVID-19 vaccine, ag e 12+ yr (PFIZER-BIONTECH - PURPLE TOP) Darshana Louis MA [facility] Work Phone: 04-23-2020 pneumococcal polysaccharide vaccine, 23 valent Darshana Louis MA [facility] Work Phone: 04-15-2006 hepatitis A vaccine, unspecified formulation Darshana Louis MA [facility] Work Phone: Payers Date Payer Category Payer Self-pay [id number] 2022 Medicare (Managed Care) [employer] [id number] 2021 Medicare [employer]NA MEDICARE [employer] MEDICARE PPO [id number] 2021-Present [phone] [id number] 2017 Medicare [id number] 2016 Medicare [id number] Unknown [id number] Unknown [id number] Unknown [id number] Unknown [id number] Unknown [id number] Unknown [id number] Unknown [id number] Unknown [id number] Unknown [id number] Unknown [id number] Social History Date Type Detail Facility Start: 04-23-2020 End: 09-05-2024 Tobacco smoking status NHIS Ex-smoker [facility] Start: 08-19-2021 End: 10-18-2024 Alcohol intake Current drinker of alcohol (finding) [facility] Start: 08-19-2021 End: 06-24-2023 Alcohol intake [facility] Start: 05-06-2021 End: 05-26-2022 History SDOH Alcohol Frequency 4 [facility] Start: 05-06-2021 End: 05-26-2022 History SDOH Alcohol Std Drinks 1 [facility] Start: 05-08-2021 History SDOH Alcohol Comment with evening meal. [facility] Start: 05-06-2021 End: 05-26-2022 History SDOH Social Connections Phone 5 [facility] Start: 05-06-2021 End: 05-26-2022 History SDOH Social Connections Gnosticism 2 [facility] Start: 05-06-2021 End: 05-26-2022 History SDOH Social Connections Meetings 3 [facility] Start: 05-06-2021 End: 05-26-2022 History SDOH Physical Activity DPW 6 [facility] Start: 05-06-2021 Education 16 [facility] Start: 1945 Sex Assigned At Male [facility] Start: 03-12-2022 End: 03-03-2023 Tobacco smoking status NHIS Unknown if ever smoked [facility] History of tobacco use Current smoker [facility] Work Phone: History of tobacco use Cigarette Smoker C [facility] Work Phone: Start: 04-23-2020 End: 09-05-2024 Tobacco use and exposure Smokeless tobacco non-user [facility] Work Phone: Start: 05-26-2022 History SDOH Social Connections Gnosticism 98 [facility] Start: 05-16-2022 End: 05-26-2022 Exposure to SARS-CoV-2 (event) Unable to assess [facility] Work Phone: Start: 05-22-2022 End: 06-01-2022 Exposure to SARS-CoV-2 (event) Not sure [facility] Work Phone: Start: 05-26-2022 End: 06-24-2023 Social connection and isolation panel [facility] How often do you att end protestant or hindu services? Patient refused [facility] Do you belong to any clubs or organizations such as protestant groups, unions, fraternal or athletic groups, or school groups? Yes [facility] Are you now , , , , never or living with a partner? [facility] How often to you hav e a drink containing alcohol? 2-3 time sa week [facility] How many standard dr inks containing alcohol do you have on a typical day? 1 or 2 [facility] How often do you hav e 6 or more drinks on 1 occasion? Never [facility] Do you feel stress - tense, restless, nervous, or anxious, or unable to sleep at night because your mind is troubled all the time - these days [OSQ] Not at all [facility] (I/We) worried cuco er (my/our) food would run out before (I/we) got money to buy more. Never true [facility] In the past 12 month s, was there a time when you were not able to pay the mortgage or rent on time? No [facility] Start: 03-12-2020 Gender identity Identifies as male gender (finding) [facility] Start: 03-12-2020 Sexual orientation Heterosexual (finding) [facility] Start: 10-29-2016 Occasional [facility] Start: 10-29-2016 Non-smoker [facility] Start: 09-01-2023 Tobacco Comment for 6 months in [facility] Start: 01-02-2025 End: 01-25-2025 Tobacco smoking status NHIS Never smoked tobacco (finding) [facility] Medical Equipment Procedure Code Equipment Code Equipment Origin al Text Equipment Identifier Dates CLIP,ContextorsRAY [facility] [employer] FDA Start: 03-11-2021 CLIP,HEMRAY [facility] [employer] FDA Start: 03-11-2021 FAROOQContextorsRAY [facility] [employer] FDA Start: 03-11-2021 CLIP,HEMMERCYSHERYL [facility] [employer] FDA Start: 03-11-2021 CLIPContextorsRAY [facility] [employer] FDA Start: 03-11-2021 FAROOQ,ContextorsRAY [facility] [employer] FDA Start: 03-11-2021 CLIPRhomaniaSHERYL Hart[facility] [employer] FDA Start: 03-11-2021 CLIP,[employer] Start: 03-11-2021 Goals Date Patient Goal Desired Activity /State Mental Status Date Assessment Result Facility 01-29-2025 Cognitive function Touch/Shaking [facility] Work Phone: 01-29-2025 Cognitive function Patient Orien tation Person;Place;Time [facility] Work Phone: Clinical Notes 02-27-1999 to 01-29-2025 Note Date & Type Note Facility 01-29-2025 Consult note [facility] 01-29-2025 Consult note Note Date/Time January 29, 2025 10:34am [facility] Medical Records Department [address] [place] [address] Pre-Anesthesia Evaluation 01/29/25 1033 MR#: [id number] Acct: [id number] Name: ROGERIO GARCIA Rep #:[id number] : 1945 79 From: Ezio Madrigal MD PCP: Dr. Blayne Cain MD Status:R EG SDC Y Race: C Location: [place] [address] ASA Classification* ASA Classification ASA Classification: 3 Assessment & Plan Anesthesia* Anesthesia Assessment Anesthesia Assessment: Discussed sedation and/or anesthesia options, risks, benefits, and alternatives with patient/parents/legal guardian/POA. Questions invited. The patient/parents/legal guardian/POA seems to understand and agrees to proceedwith anesthesia plan. Reviewed the physical assessment, medical history, allergy history and patient home medications list prior to surgery/procedure/anesthetic and documented any changes. Performed airway and anesthesia risk assessments. Anesthesia Type Anesthesia Type: MAC Anesthesia Focused Assessment* Temperature: 98.3 F Pulse Rate: 68 Blood Pressure: 128/66 Respiratory Rate: 18 Pulse Ox: 100 Airway Assessment Mouth opens: >3 cm Mallampati Score: II Labs Anesthesia Preop lab: CBC WBC 6.9 K/mm3 (4.4-11.0) 03/04/23 07:04 03/04/23 RBC 5.02 M/mm3 (4.6-6.2) 03/04/23 07:04 03/04/23 Hgb 14.6 g/dL (13.0-16.5) 03/04/23 07:04 03/04/23 Hct 44.9 % (40-54) 03/04/23 07:04 03/04/23 Plt Count 201 K/mm3 (150-450) 03/04/23 07:04 03/04/23 CHEMISTRY Potassium 4.1 mmol/L (3.5-5.1) 03/04/23 07:03 03/04/23 Sodium 139 mmol/L (136-145) 03/04/23 07:03 03/04/23 BUN 14 mg/dL (7-18) 03/04/23 07:03 03/04/23 Creatinine 1.03 mg/dL (0.70-1.30) 03/04/23 07:03 03/04/23 Glucose 101 mg/dL (74-106) 03/04/23 07:03 03/04/23 TSH 2.64 uIU/mL (0.358-3.74) 03/04/23 07:03 COAG Pre-Assessment Diagnosis/Proposed Procedure Planned Operative Procedure(s): COLONOSCOPY Anesthesia History Anesthesia History - recenterer: Anesthesia History - recenterer Hx Hospitalization No 01/25/25 08:59 Any Problems With Anesthesia No 01/25/25 08:59 Cholinesterase deficiency No 01/25/25 08:59 You/Your Family Experience No 01/25/25 08:59 fever (hyperthermia) with Relationship Recent Exposure to Contagious No 01/29/25 10:28 Disease Does patient have nerve No 01/25/25 08:59 stimulator Patient instructed to have device shut off --Does patient have Pacemaker No 01/29/25 10:29 or ICD? When Was Last Pacemaker Check QUESTION #4 FULL TEXT: You/Your Family Experience fever (hyperthermia) with Anesthesia Last Oral Intake Last Oral intake: Last Oral Intake NPO since 00:00 01/29/25 10:29 Meds taken in AM with sips of No 01/29/25 10:29 water? Meds patient instructed to take am of surgery PONV PONV - recenterer: PONV - recenterer Female No 01/25/25 08:59 HX of Motion Sickness No 01/25/25 08:59 HX of N/V After Surgery No 01/25/25 08:59 Non-Smoker Yes 01/25/25 08:59 Duration of Surgery greater No 01/25/25 08:59 than 60 minutes Number of Risk Factors 1 01/25/25 08:59 PONV Score Low Risk 01/25/25 08:59 Height & Weight Height & Weight: Anesthesia: Height & Weight Height 5 ft 7 in 01/29/25 10:29 Weight: 69.127 kg 01/29/25 10:29 Body Mass Index (BMI) 23.8 01/29/25 10:29 Respiratory Assessment Respiratory Assessment - recenterer: Respiratory Tract Infection Hx - recenterer Hx Respiratory Tract Infection No 01/25/25 08:59 STOP Sleep Apnea STOP Sleep Apnea - recenterer: STOP Sleep Apnea - recenterer Hx Hypertension No 01/25/25 08:59 Hx Sleep Apnea No 01/25/25 08:59 CPAP BIPAP Do you snore loudly (louder No 01/25/25 08:59 than talking or can be heard Do you often feel tired/ No 01/25/25 08:59 fatigued/ sleepy during daytime? Has anyone observed you stop No 01/25/25 08:59 breathing during sleep? STOP Results Negative 01/25/25 08:59 QUESTION #5 FULL TEXT : Do you snore loudly (louder than talking or can be heard through closed doors)? 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 Specify any problems Hx of Preganancy in last 3 N/A 01/25/25 08:59 Months Nurse Filling Out Transfusion JZOLLINGE 01/25/25 08:59 & Questions: Date: 01/25/25 01/25/25 08:59 Time: 09:01/25/25 08:59 Patient unable to answer at this time (ie. confused, unrespo /Reproduction History /Reproductive History - recenterer: /Reproductive Hx- recenterer Hx Now No 01/25/25 08:59 Gestational Age (in weeks): EDC: Hx Hx Para Hx Section SAB No 01/25/25 08:59 PFSH Medical History Alcohol use Cardiology follow-up encounter Constipation Wears glasses Prostate disease History of renal disease Easy bruising Non-smoker Leg cramps Bladder diverticulum Ureterolithiasis Epididymitis, right GERD (gastroesophageal reflux disease) HLD (hyperlipidemia) Atherosclerotic heart disease of [place] coronary artery without angina pectoris Home Medications ?Medication ?Instructions ?Recorded ?Last Taken ?Type aspirin 81 mg chewable tablet 81 mg PO DAILY@0800 hear t 12/19/13 01/28/25 History multivitamin 1 tab PO DAILY PRN supplemen t 03/16/24 01/27/25 History atorvastatin 20 mg tablet 20 mg PO QHS dose decreased to 20 08/06/24 01/27/25 Rx mg #90 tabs magnesium oxide 250 mg PO DAILY 01/25/2505/16 History Allergy/AdvReac Type Severity Reaction Status Date / Time No Known Allergies Allergy Verified 01/29/25 10:26 Family History Father Hx of CABG Mother Hx of CABG CAD (coronary artery disease) Surgical History History of transurethral resection of prostate (02/2021) History of cholecystectomy (10/2020) H/O coronary artery bypass surgery (02/27/99) Social History Smoking Status: Never smoker alcohol intake: current alcohol intake frequency: a few times a week Alcohol type: wine substance use type: does not use caffeine: No what type of physical activity do you participate in: walking and bicycling frequency: 3-4 times per week duration: 30-45 minutes/day seatbelt use: always do you feel safe at home: Yes Review of Systems (Anesthesia) ROS Narrative System reviewed and no additional complaints, except as documented. 01/29/25 1034 <Electronically signed by Ezio Madrigal MD > Date _ Ezio Madrigal MD Cosigner Signature: Date CC: ~ Signed [facility] Work Phone: 1(384) 694-900306-10-2025 Procedure note [facility] Medical Records Department [address] [place] [address] Colonoscopy Report MR#: [id number] Acct: [id number] Name: ROGERIO GARCIA Rep #:[id number] : 1945 79 From: Shawn Christian MD PCP: Dr. Blayne Cain MD Status:[facility] Patient Name: Rogerio Garcia Procedure Date: 01/29/2025 11:18 AM Date of : 1945 Age: 79 Procedure: Colonoscopy Indications: Screening for colorectal malignant neoplasm Providers: Shawn Christian MD Referring MD: Shawn Christian MD Medicines: Monitored Anesthesia Care Patient Profile: Refer to note in patient chart for documentation of history and physical. Last Colonoscopy: none. The patient's first colonoscopy is today. Complications: No immediate complications. Estimated blood loss: None. Procedure: Pre-Anesthesia Assessment: - Prior to the procedure, a History and Physical was performed, and patient medications and allergies were reviewed. The patient's tolerance of previous anesthesia was also reviewed. The risks and benefits of the procedure and the sedation options and risks were discussed with the patient. All questions were answered, and informed consent was obtained. Prior Anticoagulants: The patient has taken no anticoagulant or antiplatelet agents. ASA Grade Assessment: II - A patient with mild systemic disease. After reviewing the risks and benefits, the patient was deemed in satisfactory condition to undergo the procedure. After I obtained informed consent, the scope was passed under direct vision. Throughout the procedure, the patient's blood pressure, pulse, and oxygen saturations were monitored continuously. The adult colonoscope was introduced through the anus and advanced to the cecum, identified by appendiceal orifice and ileocecal valve. The ileocecal valve, appendiceal orifice, and rectum were photographed. The entire colon was well visualized. The colonoscopy was performed without difficulty. The patient tolerated the procedure well. The quality of the bowel preparation was adequate. Moderate Sedation: See the other procedure note for documentation of moderate sedation with intraservice time. Scope In: 11:28:22 AM Scope Withdrawal Time 0 hours 10 minutes 55 seconds Scope Out: 11:46:56 AM Total Procedure Duration Time 0 hours 18 minutes 34 seconds Findings: The perianal and digital rectal examinations were normal. Multiple small-mouthed diverticula were found in the sigmoid colon. Internal hemorrhoids were found during anoscopy. The hemorrhoids were mild. The exam was otherwise without abnormality. Impression: - Diverticulosis in the sigmoid colon. - Internal hemorrhoids. - The examination was otherwise normal. - No specimens collected. Recommendation: - Discharge patient to home (ambulatory). - High fiber diet. - Repeat colonoscopy in 10 years for screening purposes. - Return to my office PRN. - Continue present medications. Procedure Code(s): --- Professional --- 32249, Colonoscopy, flexible; diagnostic, including collection of specimen(s) by brushing or washing, when performed (separate procedure) Diagnosis Code(s): --- Professional --- Z12.11, Encounter for screening for malignant neoplasm of colon K57.30, Diverticulosis of large intestine without perforation or abscess without bleeding K64.8, Other hemorrhoids CPT copyright 2021 [employer]. All rights reserved. The codes documented in this report are preliminary and upon marble cutter review may be revised to meet current compliance requirements. Shawn Christian MD 01/29/2025 11:55:51 AM This report has been signed electronically. Number of Addenda: 0 Note Initiated On: 01/29/2025 11:18 AM 01/29/25 1156 Date _ Shawn Christian MD Cosigner Signature: Date (if indicated) CC: Dr. Shawn Christian MD; Dr. Blayne Cain MD ~ Date Dictated: 01/29/25 1118 Date Transcribed: Laboratory Scientist: SW Signed [facility]06-10-2025 Procedure note [facility] Medical Records Department [address] [place] [address] Operative Report - CC Letter MR#: [id number] Acct: [id number] Name: ROGERIO GARCIA Rep #:[id number] : 1945 79 From: Shawn Christian MD PCP: Dr. Blayne Cain MD Status:[facility] 01/29/2025 Blayne Cain [address] [place] [address] Re : Colonoscopy procedure for Rogerio Garcia Dear Dr. Cain This procedure was performed on Wednesday, January 29, 2025. My impressions and recommendations are as follows: Impressions : - Diverticulosis in the sigmoid colon. - Internal hemorrhoids. - The examination was otherwise normal. - No specimens collected. Recommendations : - Discharge patient to home (ambulatory). - High fiber diet. - Repeat colonoscopy in 10 years for screening purposes. - Return to my office PRN. - Continue present medications. My findings are described in the full procedure note, which is enclosed. If I can be of further assistance, please feel free to contact me at . Sincerely, Shawn Christian MD 01/29/2025 11:55:51 AM This report has been signed electronically. 01/29/25 1156 Date _ Shawn Christian MD Cosigner Signature: Date (if indicated) CC: Dr. Shawn Christian MD; Dr. Blayne Cain MD ~ Date Dictated: 01/29/258 Date Transcribed: Laboratory Scientist: VIJAY Guzman [facility]06-10-2025 History and physical note [facility] Medical Records Department [address] [place] [address] History & Physical Exam 01/29/251117 MR#: [id number] Acct: [id number] Name: ROGERIO GARCIA Rep #:[id number] : 1945 79 From: Shawn Christian MD PCP: Dr. Blayne Cain MD Status:[facility] Location: [place] [address] HPI - General General Date of Admission: 01/29/25 Date of Service: 02/20/25 Chief Complaint: colonoscopy for constipation HPI Narrative The patient is a 79-year-old male who is being seen today for constipation whichhas come on rather abruptly. Patient is now taking MiraLAX daily with better results. I have offered him a colonoscopy since he has never had one previously.We discussed the details of the planned procedure and he wishes to proceed. Thiswill be scheduled in a timely manner. In the meantime, I am recommending that donavan doing MiraLAX daily. He is agreeable to this plan. [facility] Medical History Alcohol use Cardiology follow-up encounter Constipation Wears glasses Prostate disease History of renal disease Easy bruising Non-smoker Leg cramps Bladder diverticulum Ureterolithiasis Epididymitis, right GERD (gastroesophageal reflux disease) HLD (hyperlipidemia) Atherosclerotic heart disease of [place] coronary artery without angina pectoris Home Medications ?Medication ?Instructions ?Recorded ?Last Taken ?Type aspirin 81 mg chewable tablet 81 mg PO DAILY@0800 hear t 12/19/13 01/28/25 History multivitamin 1 tab PO DAILY PRN supplemen t 03/16/24 01/27/25 History atorvastatin 20 mg tablet 20 mg PO QHS dose decreased to 20 08/06/24 01/27/25 Rx mg #90 tabs magnesium oxide 250 mg PO DAILY 01/25/2505/16 History Allergy/AdvReac Type Severity Reaction Status Date / Time No Known Allergies Allergy Verified 01/29/25 10:26 Family History Father Hx of CABG Mother Hx of CABG CAD (coronary artery disease) Surgical History History of transurethral resection of prostate (02/2021) History of cholecystectomy (10/2020) H/O coronary artery bypass surgery (02/27/99) Social History Smoking Status: Never smoker alcohol intake: current alcohol intake frequency: a few times a week Alcohol type: wine substance use type: does not use caffeine: No what type of physical activity do you participate in: walking and bicycling frequency: 3-4 times per week duration: 30-45 minutes/day seatbelt use: always do you feel safe at home: Yes Vital Signs Vital Signs Vital Signs: 01/29/25 10:28 01/29/25 10:29 01/29/25 10:34 Temperature 98.3 F 98.3 F Temperature Source Temporal Pulse Rate 68 68 Respiratory Rate 18 18 Respiratory Pattern Normal Blood Pressure 128/66 H 128/66 H Blood Pressure Mean 86 Blood Pressure Source Monitor Blood Pressure Position Semi-Fowlers Blood Pressure Location Left Arm Pulse Ox 100 100 Oxygen Delivery Method Room Air Weight Weight: 152 lb 6.4 oz Body Mass Index (BMI) 23.8 Assessment & Plan Assessment/Plan (1) Constipation: PLAN: Plan The patient is a 79-year-old male with issues of constipation recently. I have offered him a colonoscopy. We discussed the details of the planned procedure and he wishes to proceed. This will begin momentarily 01/29/25 1119 Cosigner Signature (if applicable): CC: Dr. Shawn Christian MD; Dr. Blayne Cain MD~ Signed [facility]06-10-2025 [facility] Medical Records Department [address] [place] [address] History Physical Exam 01/29/25 1118 MR#: [id number] Acct: [id number] Name: ROGERIO GARCIA Rep #: [id number] : 1945 79 From: Shawn Christian MD PCP: Dr. Blayne Cain MD Status:[facility] Location: [place] [address] HPI - General General Date of Admission: 01/29/25 Date of Service: 02/20/25 Chief Complaint: colonoscopy for constipation HPI Narrative The patient is a 79-year-old male who is being seen today for constipation which has come on rather abruptly. Patient is now taking MiraLAX daily with better results. I have offered him a colonoscopy since he has never had one previously. We discussed the details of the planned procedure and he wishes to proceed. This will be scheduled in a timely manner. In the meantime, I am recommending that he continue doing MiraLAX daily. He is agreeable to this plan. [facility] Medical History Alcohol use Cardiology follow-up encounter Constipation Wears glasses Prostate disease History of renal disease Easy bruising Non-smoker Leg cramps Bladder diverticulum Ureterolithiasis Epididymitis, right GERD (gastroesophageal reflux disease) HLD (hyperlipidemia) Atherosclerotic heart disease of [place] coronary artery without angina pectoris Home Medications ???Medication ???Instructions ???Recorded ???Last Taken ???Type aspirin 81 mg chewable tablet 81 mg PO DAILY@0800 heart 12/19/13 01/28/25 History multivitamin 1 tab PO DAILY PRN supplement 02/2001/27/25 History atorvastatin 20 mg tablet 20 mg PO QHS dose decreased to 20 08/06/24 01/27/25 Rx mg #90 tabs magnesium oxide 250 mg PO DAILY 01/25/25 01/28/25 History Allergy/AdvReac Type Severity Reaction Status Date / Time No Known Allergies Allergy Verified 01/29/25 10:26 Family History Father Hx of CABG Mother Hx of CABG CAD (coronary artery disease) Surgical History History of transurethral resection of prostate (02/2021) History of cholecystectomy (10/2020) H/O coronary artery bypass surgery (02/27/99) Social History Smoking Status: Never smoker alcohol intake: current alcohol intake frequency: a few times a week Alcohol type: wine substance use type: does not use caffeine: No what type of physical activity do you participate in: walking and bicycling frequency: 3-4 times per week duration: 30-45 minutes/day seatbelt use: always do you feel safe at home: Yes Vital Signs Vital Signs Vital Signs: 01/29/25 10:28 01/29/25 10:29 01/29/25 10:34 Temperature 98.3 F 98.3 F Temperature Source Temporal Pulse Rate 68 68 Respiratory Rate 18 18 Respiratory Pattern Normal Blood Pressure 128/66 H 128/66 H Blood Pressure Mean 86 Blood Pressure Source Monitor Blood Pressure Position Semi-Fowlers Blood Pressure Location Left Arm Pulse Ox 100 100 Oxygen Delivery Method Room Air Weight Weight: 152 lb 6.4 oz Body Mass Index (BMI) 23.8 Assessment Plan Assessment/Plan (1) Constipation: PLAN: Plan The patient is a 79-year-old male with issues of constipation recently. I have offered him a colonoscopy. We discussed the details of the planned procedure and he wishes to proceed. This will begin momentarily 01/29/25 1119 Cosigner Signature (if applicable): CC: Dr. Shawn Christian MD; [facility] Bl[facility] Medical Records Department [address] [place] [address] Pre-Anesthesia Evaluation 01/29/25 1033 MR#: [id number] Acct: [id number] Name: ROGERIO GARCIA Rep #:[id number] : 1945 79 From: Ezio Madrigal MD PCP: Dr. Blayne Cain MD Status:R EG SDC Y Race: C Location: [place] [address] ASA Classification* ASA Classification ASA Classification: 3 Assessment & Plan Anesthesia* Anesthesia Assessment Anesthesia Assessment: Discussed sedation and/or anesthesia options, risks, benefits, and alternatives with patient/parents/legal guardian/POA. Questions invited. The patient/parents/legal guardian/POA seems to understand and agrees to proceedwith anesthesia plan. Reviewed the physical assessment, medical history, allergy history and patient home medications list prior to surgery/procedure/anesthetic and documented any changes. Performed airway and anesthesia risk assessments. Anesthesia Type Anesthesia Type: MAC Anesthesia Focused Assessment* Temperature: 98.3 F Pulse Rate: 68 Blood Pressure: 128/66 Respiratory Rate: 18 Pulse Ox: 100 Airway Assessment Mouth opens: >3 cm Mallampati Score: II Labs Anesthesia Preop lab: CBC WBC 6.9 K/mm3 (4.4-11.0) 03/04/23 07:04 03/04/23 RBC 5.02 M/mm3 (4.6-6.2) 03/04/23 07:04 03/04/23 Hgb 14.6 g/dL (13.0-16.5) 03/04/23 07:04 03/04/23 Hct 44.9 % (40-54) 03/04/23 07:04 03/04/23 Plt Count 201 K/mm3 (150-450) 03/04/23 07:04 03/04/23 CHEMISTRY Potassium 4.1 mmol/L (3.5-5.1) 03/04/23 07:03 03/04/23 Sodium 139 mmol/L (136-145) 03/04/23 07:03 03/04/23 BUN 14 mg/dL (7-18) 03/04/23 07:03 03/04/23 Creatinine 1.03 mg/dL (0.70-1.30) 03/04/23 07:03 03/04/23 Glucose 101 mg/dL (74-106) 03/04/23 07:03 03/04/23 TSH 2.64 uIU/mL (0.358-3.74) 03/04/23 07:03 COAG Pre-Assessment Diagnosis/Proposed Procedure Planned Operative Procedure(s): COLONOSCOPY Anesthesia History Anesthesia History - recenterer: Anesthesia History - recenterer Hx Hospitalization No 01/25/25 08:59 Any Problems With Anesthesia No 01/25/25 08:59 Cholinesterase deficiency No 01/25/25 08:59 You/Your Family Experience No 01/25/25 08:59 fever (hyperthermia) with Relationship Recent Exposure to Contagious No 01/29/25 10:28 Disease Does patient have nerve No 01/25/25 08:59 stimulator Patient instructed to have device shut off --Does patient have Pacemaker No 01/29/25 10:29 or ICD? When Was Last Pacemaker Check QUESTION #4 FULL TEXT: You/Your Family Experience fever (hyperthermia) with Anesthesia Last Oral Intake Last Oral intake: Last Oral Intake NPO since 00:00 01/29/25 10:29 Meds taken in AM with sips of No 01/29/25 10:29 water? Meds patient instructed to take am of surgery PONV PONV - recenterer: PONV - recenterer Female No 01/25/25 08:59 HX of Motion Sickness No 01/25/25 08:59 HX of N/V After Surgery No 01/25/25 08:59 Non-Smoker Yes 01/25/25 08:59 Duration of Surgery greater No 01/25/25 08:59 than 60 minutes Number of Risk Factors 1 01/25/25 08:59 PONV Score Low Risk 01/25/25 08:59 Height & Weight Height & Weight: Anesthesia: Height & Weight Height 5 ft 7 in 01/29/25 10:29 Weight: 69.127 kg 01/29/25 10:29 Body Mass Index (BMI) 23.8 01/29/25 10:29 Respiratory Assessment Respiratory Assessment - recenterer: Respiratory Tract Infection Hx - recenterer Hx Respiratory Tract Infection No 01/25/25 08:59 STOP Sleep Apnea STOP Sleep Apnea - recenterer: STOP Sleep Apnea - recenterer Hx Hypertension No 01/25/25 08:59 Hx Sleep Apnea No 01/25/25 08:59 CPAP BIPAP Do you snore loudly (louder No 01/25/25 08:59 than talking or can be heard Do you often feel tired/ No 01/25/25 08:59 fatigued/ sleepy during daytime? Has anyone observed you stop No 01/25/25 08:59 breathing during sleep? STOP Results Negative 01/25/25 08:59 QUESTION #5 FULL TEXT : Do you snore loudly (louder than talking or can be heard through closeddoors)? 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 Specify any problems Hx of Preganancy in last 3 N/A 01/25/25 08:59 Months Nurse Filling Out Transfusion JeyZOLLTERESITA 01/25/25 08:59 & Questions: Date: 01/25/25 01/25/25 08:59 Time: 09:01 01/25/25 08:59 Patient unable to answer at this time (ie. confused, unrespo /Reproduction History /Reproductive History - recenterer: /Reproductive Hx- recenterer Hx Now No 01/25/25 08:59 Gestational Age (in weeks): EDC: Hx Hx Para Hx Section SAB No 01/25/25 08:59 PFSH Medical History Alcohol use Cardiology follow-up encounter Constipation Wears glasses Prostate disease History of renal disease Easy bruising Non-smoker Leg cramps Bladder diverticulum Ureterolithiasis Epididymitis, right GERD (gastroesophageal reflux disease) HLD (hyperlipidemia) Atherosclerotic heart disease of [place] coronary artery without angina pectoris Home Medications ?Medication ?Instructions ?Recorded ?Last Taken ?Type aspirin 81 mg chewable tablet 81 mg PO DAILY@0800 hear t 12/19/13 01/28/25 History multivitamin 1 tab PO DAILY PRN supplemen t 03/16/24 01/27/25 History atorvastatin 20 mg tablet 20 mg PO QHS dose decreased to 20 08/06/24 01/27/25 Rx mg #90 tabs magnesium oxide 250 mg PO DAILY 01/25/2505/16 History Allergy/AdvReac Type Severity Reaction Status Date / Time No Known Allergies Allergy Verified 01/29/25 10:26 Family History Father Hx of CABG Mother Hx of CABG CAD (coronary artery disease) Surgical History History of transurethral resection of prostate (02/2021) History of cholecystectomy (10/2020) H/O coronary artery bypass surgery (02/27/99) Social History Smoking Status: Never smoker alcohol intake: current alcohol intake frequency: a few times a week Alcohol type: wine substance use type: does not use caffeine: No what type of physical activity do you participate in: walking and bicycling frequency: 3-4 times per week duration: 30-45 minutes/day seatbelt use: always do you feel safe at home: Yes Review of Systems (Anesthesia) ROS Narrative System reviewed and no additional complaints, except as documented. 01/29/25 1034 > Date _ Ezio Madrigal MD Cosigner Signature: Date CC: ~ Signed [facility]05-19-2025 NoteHNO ID: [id number] Author: LUPE HOLLEY, ? Service: ? Author Type: Patient Kids Activities Coach Type: Progress Notes Filed: 01/07/2025 08:04 Note Text: POPULATION HEALTH NAVIGATION OUTREACH Action/FYI Responded via my chart will patient will schedule appt Reason for Outreach Community Monitoring/Network Navigator Pools AND Phone Line: CM Pool Care Gaps due: N/A Patient Contacted: Spoke to patient/parent/or legal guardian Patient identified by name and : Yes Community Monitoring/Network Navigator Pools AND Phone Line actions taken: Patient declined: Patient will contact office directly to schedule Navigation Signature: Lupe Holley Population Health Navigator January 07, 2025 8:03 [facility]05-16-2025 Evaluation note* Diagnosis Onset Date Resolution Status Admit Date Constipation acute January 04 1:59pm Constipation acute January 29, 10:06am [facility] Work Phone: 1(374) 901-169305-16-2025 NoteHNO ID: [id number] Author: LUPE HOLLEY, ? Service: ? Author Type: Patient Kids Activities Coach Type: Progress Notes Filed: 01/04/2025 12:40 Note Text: POPULATION HEALTH NAVIGATION OUTREACH Action/FYI Left message to schedule ED follow up ED utilization to be reviewed Reason for Outreach Community Monitoring/Network Navigator Pools AND Phone Line: CM Pool Care Gaps due: Follow-up Appointment Patient Contacted: Unable or unnecessary to reach patient: Left message [email or web address] message sent Navigation Signature: Lupe Holley Population Health Navigator January 04, 2025 12:39 [facility]05-16-2025 History of Present illness Narrative* Lupe Holley - 01/04/2025 12:39 PM EDT POPULATION HEALTH NAVIGATION OUTREACH Action/FYI Left message to schedule ED follow up ED utilization to be reviewed Reason for Outreach Community Monitoring/Network Navigator Pools & Phone Line: CM Pool Care Gaps due: Follow-up Appointment Patient Contacted: Unable or unnecessary to reach patient: Left message [email or web address] message sent Navigation Signature: Lupe Holley, Population Health Navigator January 04, 2025 12:39 PM * Savita Davis RN - 01/04/2025 11:52 AM EDTSummary: Chart review review per request of payor ACM PARVEEN RN Patient identified by name and date of . Reason for review or outreach: Chart Review Parveen Priority Emergency Department Utilization REQUESTED ACTION/FYI: Please see ED Utilization summary below A AWV appointment is noted to be scheduled on 09/06/25. We are forwarding this patient to Network Navigation to schedule a [facility] 01/02/25 PCP follow-up appointment. Thank you Exclusion Criteria Does not meet exclusion criteria ED DIAGNOSES/REASON(S) FOR ED USE: [facility] 01/02/25 Constipation OTHER FINDINGS/SUMMARY: Labs,CXR, Abd Xray completed in ED, Mag citrate prescribed at discharge and Miralax, advised to take Miralax daily, f/u with PCP Patient Attributed To: MAYITO Payer: Josh HORNER Action Taken: Referrals/Routed: Population Health Navigation: Appointment. Router to [facility] [[id number]] Contact made with patient: No, Chart review only. Signature: Savita CABAN,RN,[facility] Agriculture Technician Management Contract RN [phone] [facility] NoteHNO ID: [id number] Author: SAVITA DAVIS RN Service: ? Author Type: Registered Nurse Type: Progress Notes Filed: 01/04/2025 11:57 Note Text: Summary: Chart review review per request of payor ACM PARVEEN RN Patient identified by name and date of . Reason for review or outreach: Chart Review Parveen Priority Emergency Department Utilization REQUESTED ACTION/FYI: Please see ED Utilization summary below A AWV appointment is noted to be scheduled on 09/06/25. We are forwarding this patient to Network Navigation to schedule a [facility] 01/02/25 PCP follow-up appointment. Thank you Exclusion Criteria Does not meet exclusion criteria ED DIAGNOSES/REASON(S) FOR ED USE: [facility] 01/02/25 Constipation OTHER FINDINGS/SUMMARY: Labs,CXR, Abd Xray completed in ED, Mag citrate prescribed at discharge and Miralax, advised to take Miralax daily, f/u with PCP Patient Attributed To: MAYITO Payer: Josh HORNER Action Taken: Referrals/Routed: Population Health Navigation: Appointment. [facility] to [facility] [[id number]] Contact made with patient: No, Chart review only. Signature: Savita Davis MSN,RN,[facility] Agriculture Technician Management Contract RN [phone] NotePatient Outreach ([facility]) ROGERIO GARCIA ([id number]) 1945 M Date Time Provider Department 01/04/25 SAVITA DAVIS During your visit today, we recorded the following information about you: Savita Davis RN 01/04/2025 11:57 AM Signed ACM PARVEEN RN Patient identified by name and date of . Reason for review or outreach: Chart Review Parveen Priority Emergency Department Utilization REQUESTED ACTION/FYI: Please see ED Utilization summary below A AWV appointment is noted to be scheduled on 09/06/25. We are forwarding this patient to Network Navigation to schedule a [facility] 01/02/25 PCP follow-up appointment. Thank you Exclusion Criteria Does not meet exclusion criteria ED DIAGNOSES/REASON(S) FOR ED USE: [facility] 01/02/25 Constipation OTHER FINDINGS/SUMMARY: Labs,CXR, Abd Xray completed in ED, Mag citrate prescribed at discharge and Miralax, advised to take Miralax daily, f/u with PCP Patient Attributed To: MAYITO Payer: Ammykaty HORNER Action Taken: Referrals/Routed: Population Health Navigation: Appointment. Router to [facility] [[phone]] Contact made with patient: No, Chart review only. Signature: Savita CABAN,RN,[facility] Agriculture Technician Management Contract RN [phone] Lupe Holley 01/04/2025 12:40 PM Signed POPULATION HEALTH NAVIGATION OUTREACH Action/FYI Left message to schedule ED follow up ED utilization to be reviewed Reason for Outreach Community Monitoring/Network Navigator Pools AND Phone Line: CM Pool Care Gaps due: Follow-up Appointment Patient Contacted: Unable or unnecessary to reach patient: Left message [email or web address] message sent Navigation Signature: Lupe Holley Population Health Navigator January 04, 2025 12:39 PM Lupe Holley 01/07/2025 8:04 AM Signed POPULATION HEALTH NAVIGATION OUTREACH Action/FYI Responded via my chart will patient will schedule appt Reason for Outreach Community Monitoring/Network Navigator Pools AND Phone Line: CM Pool Care Gaps due: N/A Patient Contacted: Spoke to patient/parent/or legal guardian Patient identified by name and : Yes Community Monitoring/Network Navigator Pools AND Phone Line actions taken: Patient declined: Patient will contact office directly to schedule Navigation Signature: Lupe Holley Population Health Navigator January 07, 2025 8:03 AM Allergies As of Date: 01/04/2025 (No Known Allergies) Date Reviewed: 09/01/2023 Reviewed by: Kay Tai LPN - Fully Assessed Reason for Visit: ACM PARVEEN RN [[id number]] Cmt: Chart review review per request of payor Prescriptions as of 01/07/2025 - atorvastatin (LIPITOR) 20 mg tablet Take 1 tablet by mouth daily at bedtime. For cholesterol. - ASPIRIN 81 MG TAB Take one (1) tablet daily . Problem List As Of Date 01/04/2025 Noted Resolved Atherosclerosis of [place] coronary artery of na*08/02/2005 Other hyperlipidemia [E78.49] 08/02/2005 Cough [R05.9] 11/13/2007 10/14/2016 S/P CABG x 1 [Z95.1] 08/22/1998 Gastroesophageal reflux disease [K21.9] 03/13/2020 09/05/2024 Acute low back pain [M54.50] 06/14/2022 08/24/2022 Impaired fasting glucose [R73.01] 09/17/2024 Osteopenia, senile [M85.80] 10/18/2024 Encounter Status:Closed by SAVITA DAVIS on 01/04/25[facility]05[facility] Discharge summary [facility] Medical Records Department [address] [place] [address] Emergency Department Summary 01/02/25 MR#: [id number] Acct: [id number] Name: ROGERIO GARCIA Rep #:[id number] : 1945 79 From: Justice Guerrero MD PCP: Dr. Blayne Cain MD Status:R EG ER Location: ED HPI History of Present Illness Chief Complaint: Constipation Informant: patient Onset/Context/Timing Onset: Days (6-7 days since last bowel movement.) Context: Sudden Onset Timing: Continuous Quality: Constipation, still passing gas Location: Abdomen generalized Current Severity: Mild Maximum Severity: Mild Worsened by: Not having a bowel movement Relieved by: Nothing Associated Symptoms Associated Symptoms: Bloating sensation Narrative Narrative: Patient is a 79-year-old male. He has history of hyperlipidemia and prediabetes. He states he has had weight loss due to change in his diet becauseof the prediabetes diagnosis. He does have history of coronary disease. He hasnot had a bowel movement in 6 to 7 days. He is still passing gas. He feelsbloated distended. He is status postcholecystectomy. He has no history of bowel obstruction. He denies fever or chills. He denies respiratory symptoms. He denies urologic symptoms. He states he does have pressure in his rectal area. He has not strained because he gets hemorrhoids when he does this. Prior similar symptoms: No Recent Illness/Hospitalization: No PFSH PFSH Medical History Wears glasses Prostate disease History of renal disease Easy bruising Non-smoker Leg cramps Bladder diverticulum Ureterolithiasis Epididymitis, right GERD (gastroesophageal reflux disease) HLD (hyperlipidemia) Atherosclerotic heart disease of [place] coronary artery without angina pectoris Home Medications ?Medication ?Instructions ?Recorded ?Last Taken ?Type aspirin 81 mg chewable tablet 81 mg PO DAILY@0800 hear t 12/19/13 03/03/21 History multivitamin 1 tab PO DAILY PRN supplemen t 03/16/24 Unknown History atorvastatin 20 mg tablet 20 mg PO QHS dose decreased to 20 08/06/24 Unknown Rx mg #90 tabs Allergy/AdvReac Type Severity Reaction Status Date / Time No Known Allergies Allergy Verified 01/02/25 07:10 Family History Father Hx of CABG Mother Hx of CABG CAD (coronary artery disease) Surgical History History of transurethral resection of prostate (02/2021) History of cholecystectomy (10/2020) H/O coronary artery bypass surgery (02/27/99) Social History Smoking Status: Never smoker alcohol intake: current alcohol intake frequency: a few times a week Alcohol type: wine substance use type: does not use caffeine: No what type of physical activity do you participate in: walking and bicycling frequency: 3-4 times per week duration: 30-45 minutes/day seatbelt use: always do you feel safe at home: Yes ROS ROS ED Constitutional Constitutional ED: Reports weight loss; Denies chills, fever(s) or subjective Cardiovascular Cardiovascular: Denies chest pain or palpitations Respiratory/Chest Respiratory/Chest: Denies cough, dyspnea or dyspnea on exertion Gastrointestinal Gastrointestinal: Reports abdominal pain and constipation; Denies diarrhea, melena, nausea or vomiting Genitourinary Genitourinary ED: Denies dysuria, hematuria or urinary frequency Musculoskeletal Musculoskeletal: Denies back pain Hematologic/Lymphatic Hematologic/Lymphatic: Reports systems reviewed and no addt'l complaints, exceptas documented EXAM Physical Exam Const Vital Signs: 01/02/25 07:07 Temperature 97.4 F L Temperature Source Oral Pulse Rate 64 Respiratory Rate 16 Blood Pressure 144/72 H Blood Pressure Mean 96 Pulse Ox 100 Oxygen Delivery Method Room Air Positive well nourished and well developed General Appearance ED: well developed and NAD HEENT Reports moist mucous membranes HEENT Narrative: Head is atraumatic normocephalic. Ears normal. Nares patent. Eyes PERRL and EOMs intact bilaterally General Eye ED: Negative for scleral icterus Neck supple and no JVD Resp normal respiratory effort and clear to auscultation bilaterally Cardio regular rate, regular rhythm, S1 normal heart sound, S2 normal heart sound and no murmurs GI no masses; Negative for normal to inspection, nondistended, normoactive bowel sounds, non-tender, non-distended or hepatosplenomegaly GI Narrative: There is central tamponade. Bowel sounds are slightly decreased. There is minimal periumbilical tenderness. Rectal exam reveals hemorrhoids. There is nobleeding. There is no stool in the rectal vault. Prostate was normal size and nontender. Inspection: abdominal distention Palpation: soft Rectal Exam: normal sphincter tone and prostate normal Extremity normal to inspection Neuro oriented x3 and CN's II-XII intact bilaterally Sensorium / Orientation: alert Psych mental status grossly normal Skin no rashes or lesions noted and no wounds MDM MDM MDM Narrative Medical decision making narrative: Patient's history and physical is consistent with obstipation. This may be due to his change in diet. There is no concern for obstruction at this point since he is still flagellated. He may have an ileus. Will obtain 2 view abdominal series to assess bowel gas pattern to determine if patient has anileus versus constipation due to increased fecal load versus other causes. Symptoms been going on aweek his exam is benign vital signs are normal my opinion laboratory tests are not indicated or warranted. History & Record Review Additional record(s) reviewed:: Prior outpatient record (H&P and operative note authored by February 2021 was reviewed. Also there was blood work from outside facility February 2023 that was reviewed.), Prior ED visit (Prior ER visit April 2019 for chest pain due to GERD was authored by Dr. Patricio Palacios.) and Prior labs Radiography Chest X-Ray - ED: 2 View and Read by ED Physician (2 view x-ray of the abdomen was obtained. There is notes of gas pattern. There is significant mount of fecal stasis especially distal half of the transverse colon and the descending colon. There is no evidence of pneumoperitoneum. There is no significant atherosclerotic disease noted. Osseous s) Diagnostic Testing: Clinical Impression(s) from Imaging Studies Abdomen X-Ray 01/02/25 07:49 IMPRESSION: Constipation. Reading Location: [facility] Treatment and Re-Evaluation :: Patient was informed of his x-ray results. Plan was formulated. He understands. Discharge Plan Triage Chief Complaint: Constipation ED Provider: Justice Guerrero Dx/Rx/DC Orders Clinical Impression: Obstipation, Atherosclerotic heart disease of [place] coronary artery without angina pectoris, HLD (hyperlipidemia), Prediabetes Instructions: ED Constipation (Adult) Prescriptions: No Action multivitamin Tablet 1 tab PO DAILY PRN (Reason: supplement) aspirin 81 MG tablet,chewable 81 mg PO DAILY@0800 Patient Comments: heart health atorvastatin 20 mg tablet 20 mg PO QHS Qty: 90 3RF Primary Care Provider: Blayne Cain Referrals: Blayne Cain MD [Primary Care Provider] - As Needed Activity Restrictions/Additional Instructions: 1. 10 ounces of mag citrate once you get home. 2. 4 hours after you drink the mag citrate 1 capful of MiraLAX in your favoritebeverage. Repeat this every hour until you start to have results. 3. Recommend MiraLAX once daily for the next week. Print Language: Burundian Disposition Disposition: Home, Self Care What to do if you have Problems For any increased pain, shortness of breath, bleeding, nausea or vomiting, chestpain, or any unexpected problems, contact your Primary Care Provider. Call [facility] ([phone]) or report tothe closest Emergency Room. Call 911 if necessary. 01/02/25 0836 Cosigner Signature (if applicable): CC: Dr. Blayne Cain MD ~ Signed [facility]05-14-2025 Radiology Diagnostic study note [facility] Imaging Services [address] [place] [address] Abd Inc Decub and/or Erect MR#: [id number] Acct: [id number] Name: ROGERIO GARCIA Rep #: [id number] : 1945 M 79 From: Julio Tong MD PCP: Dr. Blayne Cain MD Status: R EG ER Study:Abd Inc Decub and/or Erect Date of Exam : 01/02/25 Exam# [id number] Ordering Dr: Shruthi Guerrero MD PROCEDURE: ABD INC DECUB AND/OR ERECT 01/02/2025 REASON FOR EXAM: NO BM X 1 WEEK TECHNIQUE: Supine and upright views addendum were obtained. COMPARISON: None FINDINGS: Bowel gas: Moderate constipation identified with fecal material distributed throughout the colon. No evidence of bowel obstruction. Calcifications: No suspicious calcifications. Bones: There are degenerative changes of the spine. Dextroscoliosis. Other: Degenerative changes of both hip joints. RAD/Abd Inc Decub and/or Erect IMPRESSION: Constipation. Reading Location: [id number] CC: Dr. Justice Guerrero MD; Dr. Blayne Cain MD ~ Laboratory Scientist: Signed [facility]02-20-2025 NoteHNO ID: [id number] Author: JOÃO VYAS RT(R) Service: ? Author Type: Technologist Type: Progress Notes Filed: 10/11/2024 09:18 Note Text: Radiology Service Progress Note PATIENT NAME: Rogerio Garcia DATE OF SERVICE: October 11, 2024 TIME: 9:09 AM PATIENT IDENTITY VERIFICATION COMPLETED USING TWO (2) IDENTIFIERS: Name and Date of confirmed by patient verbally. FALL SCREENING: Has the patient had 2 falls in the last year or 1 fall with injury or currently using an Ambulatory Assistive Device (Walker, Cane, Wheelchair, Crutches, etc.)? No PATIENT GENDER DATA: Assigned male at PATIENT RELEVANT IMPLANT DATA REVIEWED: Not Applicable PATIENT PRESENTS WITH AN IMPLANTABLE OR ATTACHED CONDITIONING ROOM WORKER: No RADIOLOGY DEPARTMENT: Bone Density PERIPHERAL IV DATA: Not applicable SIGNED BY: RT Shantal(R) October 11, 2024 9:09 [facility]01-15-2025 NoteHNO ID: [id number] Author: BLAYNE CAIN MD Service: ? Author Type: Physician Type: Progress Notes Filed: 09/05/2024 09:32 Note Text: This note was created using NoteWriter. Subjective Rogerio Garcia is a 78 year old male was here for a follow up. His coronary artery disease and lipids were stable, controlled, and asymptomatic. He had a painful swollen right mid toenail bed last week that was better with peroxide and antibiotic ointment. He was concerned about his family history of diabetes mellitus and had an A1c drawn and turned out to be 6.1%. He was aware of his need to reduce carbohydrates and sweets. He had dealt with outbursts of anger in the past, usually related to sports and competition. This flared up recently and strained a friendship. He requested referral to a counselor he wanted to see. Review of Systems Constitutional: Negative for fatigue and unexpected weight change. Respiratory: Negative for shortness of breath. Cardiovascular: Negative for chest pain. Genitourinary: Negative for difficulty urinating. Neurological: Negative. Psychiatric/Behavioral: Negative. ACTIVE PROBLEM LIST Atherosclerosis of [place] Coronary Artery of [place] Heart Without Angina Pectoris Other Hyperlipidemia S/P Cabg X 1 Social History Tobacco Use Smoking status: Former Types: Cigarettes Smokeless tobacco: Never Tobacco comments: for 6 months in college Substance Use Topics Alcohol use: Yes Alcohol/week: 7.0 standard drinks of alcohol Types: 7 Glasses of Wine (5oz) per week Comment: with evening meal. Drug use: No Current Outpatient Medications Medication Sig atorvastatin (LIPITOR) 20 mg tablet Take 1 tablet by mouth daily at bedtime. For cholesterol. ASPIRIN 81 MG TAB Take one (1) tablet daily . No current facility-administered medications for this visit. Objective BP 112/68 (BP Site: Left Arm, BP Position: Sitting, BP Cuff Size: Large Adult) Pulse 84 Resp 16 Ht 168.3 cm (5' 6.25) Wt 71 kg (156 lb 8.4 oz) BMI 25.07 kg/m? Physical Exam Constitutional: Appearance: Normal appearance. Cardiovascular: Rate and Rhythm: Normal rate and regular rhythm. Pulses: Normal pulses. Heart sounds: No murmur heard. No gallop. Pulmonary: Breath sounds: Normal breath sounds. Musculoskeletal: Right lower leg: No edema. Left lower leg: No edema. Comments: Right 3rd toe with residual erythema around the nail bed. No tenderness, swelling, or drainage. Neurological: Mental Status: He is alert. Assessment and Plan 1. Medicare annual wellness visit, subsequent - ICD9: V70.0, ICD10: Z00.00 (primary diagnosis) - See wellness visit. 2. Screening for depression - ICD9: V79.0, ICD10: Z13.31 - DEPRESSION SCREENING 3. Encounter for screening examination for other mental health and behavioral disorders - ICD9: V79.8, ICD10: Z13.39 - ANXIETY SCREENING 4. Elevated hemoglobin A1c - ICD9: 790.29, ICD10: R73.09 Repeat labs fasting. - BASIC METABOLIC PANEL - HEMOGLOBIN A1C 5. Atherosclerosis of [place] coronary artery of [place] heart without angina pectoris - ICD9: 414.01, ICD10: I25.10 - Asymptomatic. 6. Other hyperlipidemia - ICD9: 272.4, ICD10: E78.49 - Controlled. Continue medication. 7. Loss of height - ICD9: 781.91, ICD10: R29.890 Reviewed. We discussed osteoporosis, and risks. We discussed medications for osteoporosis, specifically alendronate. Discussed medication dosage, usage, goals of therapy, and side effects. Final recommendations will depend on result. - DXA-AXIAL SKELETON 8. Paronychia of third toe - ICD9: 681.11, ICD10: L03.039 - Resolved. 9. Outbursts of anger - ICD9: 312.00, ICD10: R45.4 - CONSULT TO PSYCHOLOGY Blayne Cain [facility]01-15-2025 History of Present illness Narrative* Blayne Cain MD - 09/05/2024 9:21 AM EST This note was created using NoteWriter. Subjective Rogerio Garcia is a 78 year old male was here for a follow up. His coronary artery disease and lipids were stable, controlled, and asymptomatic. He had a painful swollen right mid toenail bed lastweek that was better with peroxide and antibiotic ointment. He was concerned about his family history of diabetes mellitus and had an A1c drawn and turned out to be 6.1%. He was aware of his need to reduce carbohydrates and sweets. He had dealt with outbursts of anger in the past, usually related to sports and competition. This flared up recently and strained a friendship. He requested referral to a counselor he wanted to see. Review of Systems Constitutional: Negative for fatigue and unexpected weight change. Respiratory: Negative for shortness of breath. Cardiovascular: Negative for chest pain. Genitourinary: Negative for difficulty urinating. Neurological: Negative. Psychiatric/Behavioral: Negative. ACTIVE PROBLEM LIST Atherosclerosis of [place] Coronary Artery of [place] Heart Without Angina Pectoris Other Hyperlipidemia S/P Cabg X 1 Social History Tobacco Use Smoking status: Former Types: Cigarettes Smokeless tobacco: Never Tobacco comments: for 6 months in college Substance Use Topics Alcohol use: Yes Alcohol/week: 7.0 standard drinks of alcohol Types: 7 Glasses of Wine (5oz) per week Comment: with evening meal. Drug use: No Current Outpatient Medications Medication Sig atorvastatin (LIPITOR) 20 mg tablet Take 1 tablet by mouth daily at bedtime. For cholesterol. ASPIRIN 81 MG TAB Take one (1) tablet daily . No current facility-administered medications for this visit. Objective BP 112/68 (BP Site: Left Arm, BP Position: Sitting, BP Cuff Size: Large Adult) Pulse 84 Resp 16 Ht 168.3 cm (5' 6.25) Wt 71 kg (156 lb 8.4 oz) BMI 25.07 kg/m Physical Exam Constitutional: Appearance: Normal appearance. Cardiovascular: Rate and Rhythm: Normal rate and regular rhythm. Pulses: Normal pulses. Heart sounds: No murmur heard. No gallop. Pulmonary: Breath sounds: Normal breath sounds. Musculoskeletal: Right lower leg: No edema. Left lower leg: No edema. Comments: Right 3rd toe with residual erythema around the nail bed. No tenderness, swelling, or drainage. Neurological: Mental Status: He is alert. Assessment and Plan 1. Medicare annual wellness visit, subsequent - ICD9: V70.0, ICD10: Z00.00 (primary diagnosis) - See wellness visit. 2. Screening for depression - ICD9: V79.0, ICD10: Z13.31 - DEPRESSION SCREENING 3. Encounter for screening examination for other mental health and behavioral disorders - ICD9: V79.8, ICD10: Z13.39 - ANXIETY SCREENING 4. Elevated hemoglobin A1c - ICD9: 790.29, ICD10: R73.09 Repeat labs fasting. - BASIC METABOLIC PANEL - HEMOGLOBIN A1C 5. Atherosclerosis of [place] coronary artery of [place] heart without angina pectoris - ICD9: 414.01, ICD10: I25.10 - Asymptomatic. 6. Other hyperlipidemia - ICD9: 272.4, ICD10: E78.49 - Controlled. Continue medication. 7. Loss of height - ICD9: 781.91, ICD10: R29.890 Reviewed. We discussed osteoporosis, and risks. We discussed medications for osteoporosis, specifically alendronate. Discussed medication dosage, usage, goals of therapy, and side effects. Final recommendations will depend on result. - DXA-AXIAL SKELETON 8. Paronychia of third toe - ICD9: 681.11, ICD10: L03.039 - Resolved. 9. Outbursts of anger - ICD9: 312.00, ICD10: R45.4 - CONSULT TO PSYCHOLOGY Blayne Cain MD * Blayne Cain MD - 09/05/2024 8:52 AM EST Images from the original note were not included. Rogerio Garcia is a 78 year old male here for a Medicare wellness visit. Medicare Health Risk Assessment General Health Very good Exercise: Minutes/Day 40 min Exercise: Days/Week 5 days Alcohol: Daily Use 2-3 times a week Alcohol: Drinks/Day 1 or 2 Alcohol: 6 or more drinks Never Feel off balance No Concerns: Teeth/Dentures No Concerns: Sexual function No Troubled by feelings None of the above Frequency: Eating healthy diet Nearly every day ADLs requiring help None of the above Safety precautions in home/vehicle Yes Smoke, vape, chews tobacco No Difficulty hearing No Difficulty seeing No Current Providers Specialists: I have reviewed specialist-related care of the patient in the medical record. Current care team: Patient Care Team: Blayne Cain MD as PCP - General (Internal Medicine) Cecile, Yoli M, CHUCKING AND SAWING MACHINE OPERATOR.SLASHER RUNNER as Contract Post Office Clerk (Internal Medicine) Outside specialists seen: Dr. Gray Abebe, cardiology. Dr. Nigel Ingram, urology. Dr. Tomas Grover, ophthalmology. Medical/Family history review Reviewed and updated problem list, medical/surgical/family/social history, medications, and allergies. Opioid use review Opioid Medications (last 90 days) No data to display Anxiety/Depression screening PHQ-9 Score: 0. USHA-7 Score: 0. Recommendation: no further intervention at this time Cognitive screening Mini Cog Score: 5 Cognitive screening reviewed and No further action needed (score 3-5). Functional Observation Was the patient's Timed Up & Go test unsteady or >= 12 seconds? No Advance Care Planning Surrogate decision maker and/or advance care plan documented Measurements BP 112/68 (BP Site: Left Arm, BP Position: Sitting, BP Cuff Size: Large Adult) Pulse 84 Resp 16 Ht 168.3 cm (5' 6.25) Wt 71 kg (156 lb 8.4 oz) BMI 25.07 kg/m Vision Screening: Follows with optometry/ophthalmology Right: 20/30 Left: 20/ 25 Both: 20/25 Assessment/Plan Medicare annual wellness visit, subsequent (Z00.00) - Counseled on healthy diet and regular exercise - Fall avoidance information provided - Personalized prevention plan provided - Vaccines up to date. [facility] Instructions* Patient Instructions* Blayne Cain MD - 09/05/2024 9:09 AM EST Fasting labs any time soon. Screening schedule The following prevention plan is recommended: Diabetes Screening due on 03/09/2024 WHAT YOU CAN DO TO PREVENT FALLS Many falls can be prevented. By making some changes, you can lower your chances of falling. Four things YOU can do to prevent falls for you* and your caregiver 1. Begin a regular exercise program Exercise is one of the most important ways to lower your chances of falling. It makes you stronger and helps you feel better. Exercises that improve balance and coordination (like Juan Chi) are the most helpful. Lack of exercise leads to weakness and increases your chances of falling. Ask your doctor or health care provider about the best type of exercise program for you. 2. Have your health care provider review your medicines Have your doctor or pharmacist review all the medicines you take, even dspg-bax-fwtsthx medicines. As you get older, the way medicines work in your body can change. Some medicines, or combinations of medicines, can make you sleepy or dizzy andcan cause you to fall. 3. Have your vision checked Have your eyes checked by an eye doctor at least once a year. You may be wearing the wrong glasses or have a condition like glaucoma or cataracts that limits your vision. Poor vision can increase your chances of falling. 4. Make your home safer About half of all falls happen at home. To make your home safer: Remove things you can trip over (like papers, books, clothes, and shoes) from stairs and places where you walk. Remove small throw rugs or use double-sided tape to keep the rugs from slipping. Keep items you use often in cabinets you can reach easily without using a step stool. Have grab bars put in next to your toilet and in the tub or shower. Use non-slip mats in the bathtub and on shower floors. Improve the lighting in your home. As you get older, you need brighter lights to see well. Hang light-weight curtains or shades to reduce glare. Have handrails and lights put in on all staircases. Wear shoes both inside and outside the house. Avoid going barefoot or wearing slippers. For more information, contact: Centers for Disease Control and Prevention www.cdc.gov/injury * This information may not apply if you have certain medical conditions. BONE MINERAL DENSITY PATIENT INSTRUCTIONS Bone mineral density testing measures the amount of calcium in certain parts of your bones. This information determines how strong your bones are. The test is used to detect osteoporosis, a disease in which the bone's mineral content and density are low, increasing a person's risk of fractures. Thelumbar spine (lower back) and the hip are the skeletal sites usually examined. For the test, remember that: 1. You cannot take this test if you are . 2. Eat a normal diet on the day of the test. 3. Take your medications as you normally would. 4. DO NOT take calcium supplements (such as Tums) for 24 hours before the test. 5. On the day of the test, leave valuables (jewelry or credit cards) at home. 6. The test should be performed prior to oral, rectal or IV contrast studies, or at least 7 days after any of these studies. For the test, you may be asked to wear a hospital gown. You will lie on your back, on a padded table, in a comfortable position. Generally, you can resume your usual activities immediately. documented in this encounterPark[facility]01-15-[facility]25 NoteHNO ID: [id number] Author: BLAYNE CAIN MD Service: ? Author Type: Physician Type: Progress Notes Filed: 09/05/2024 09:32 Note Text: Rogerio Garcia is a 78 year old male here for a Medicare wellness visit. Medicare Health Risk Assessment General Health Very good Exercise: Minutes/Day 40 min Exercise: Days/Week 5 days Alcohol: Daily Use 2-3 times a week Alcohol: Drinks/Day 1 or 2 Alcohol: 6 or more drinks Never Feel off balance No Concerns: Teeth/Dentures No Concerns: Sexual function No Troubled by feelings None of the above Frequency: Eating healthy diet Nearly every day ADLs requiring help None of the above Safety precautions in home/vehicle Yes Smoke, vape, chews tobacco No Difficulty hearing No Difficulty seeing No Current Providers Specialists: I have reviewed specialist-related care of the patient in the medical record. Current care team: Patient Care Team: Blayne Cain MD as PCP - General (Internal Medicine) Yloi Huber APRN.SLASHER RUNNER as Contract Post Office Clerk (Internal Medicine) Outside specialists seen: Dr. Gray Abebe, cardiology. Dr. Nigel Ingram, urology. Dr. Tomas Grover, ophthalmology. Medical/Family history review Reviewed and updated problem list, medical/surgical/family/social history, medications, and allergies. Opioid use review Opioid Medications (last 90 days) No data to display Anxiety/Depression screening PHQ-9 Score: 0. USHA-7 Score: 0. Recommendation: no further intervention at this time Cognitive screening Mini Cog Score: 5 Cognitive screening reviewed and No further action needed (score 3-5). Functional Observation Was the patient's Timed Up AND Go test unsteady or >= 12 seconds? No Advance Care Planning Surrogate decision maker and/or advance care plan documented Measurements BP 112/68 (BP Site: Left Arm, BP Position: Sitting, BP Cuff Size: Large Adult) Pulse 84 Resp 16 Ht 168.3 cm (5' 6.25) Wt 71 kg (156 lb 8.4 oz) BMI 25.07 kg/m? Vision Screening: Follows with optometry/ophthalmology Right: Left: Both: Assessment/Plan Medicare annual wellness visit, subsequent (Z00.00) - Counseled on healthy diet and regular exercise - Fall avoidance information provided - Personalized prevention plan provided - Vaccines up to date.[facility]10-18-[facility]24 Telephone encounter Note* Telephone Encounter - Layla Cohen MA - 06/08/2024 8:53 AM EDT Added. [facility] Miscellaneous Notes* Telephone Encounter - Layla Cohen MA - 06/08/2024 8:53 AM EDT Added. * Telephone Encounter - Kay Tai LPN - 06/07/2024 3:12 PM EDT Checking Query Imm Registry, it has not been loaded yet, will check again later. Kay Tai LPN * Telephone Encounter - Sherry Arellano RN - 06/07/2024 1:40 PM EDT Patient calling to let provider know he had the high dose >age 65 flu shot at [facility] [employer] [place] today. Sherry Arellano, RN documented in this encounterParkwood Hospital10-17-2024 Telephone encounter Note * Telephone Encounter - Kay Tai LPN - 06/07/2024 3:12 PM EDT Checking Query Imm Registry, it has not been loaded yet, will check again later. Kay Tai LPN [facility]10-[facility] Telephone encounter Note* Telephone Encounter - Sherry Arellano RN - 06/07/2024 1:40 PM EDT Patient calling to let provider know he had the high dose >age 65 flu shot at [facility] [place] [employer] [place] today. Sherry Arellano RN [facility]10-[facility]24 NoteHNO ID: [id number] Author: VIKKI CABA LPN Service: ? Author Type: LICENSED NURSE Type: Progress Notes Filed: 05/24/2024 10:58 Note Text: Patient presents for COVID vaccine. Denies any problems at this time. Tolerated injection well. [facility] History of Present illness Narrative* Vikki Caba LPN - 05/24/2024 10:48 AM EDT Patient presents for COVID vaccine. Denies any problems at this time. Tolerated injection well. Vikki Caba LPN documented in this encounterParkwood Hospital08-08-2023 Miscellaneous Notes* Telephone Encounter - Meaghan Jordan LPN - 03/29/2023 1:27 PM EDT Pt mailed to pcp FIT test completed 03/17/23 with brooke. documented in this encounterParkwood [facility]05-01-2023 History of Present illness Narrative* Vikki Caba LPN - 12/20/2022 2:56 PM EDT Patient presents for Shingrix vaccine. Denies any problems at this time. Tolerated injection well. Vikki Caba LPN documented in this encounterPark[facility] Hospital01-30-2023 Miscellaneous Notes* Telephone Encounter - Vikki Caba LPN - 09/20/2022 9:06 AM EST Patient scheduled for nurse visit 10/05/22 to receive Shingrix vaccine. Please place order at this time. Vikki Caba LPN documented in this encounterParkwood Hospital01-23-2023 History of Present illness Narrative* Vikki Caba LPN - 09/13/2022 9:21 AM EST Patient presents for TDAP vaccine. Denies any problems at this time. Tolerated injection well. Vikki Caba LPN documented in this encounterPark[facility] Hospital01-09-2023 Miscellaneous Notes* Telephone Encounter - Vikki Caba LPN - 08/30/2022 3:26 PM EST Patient scheduled for nurse visit 09/13/22 to receive TDAP. Please place order at this time. Vikki Caba LPN documented in this encounterParkwood Hospital10-24-2022 History of Past illness Narrative* Problem Noted Date Resolved Date Acute low back pain 06/14/2022 08/24/2022 Cough 11/13/2007 10/14/2016 documented as of this encounter (statuses as of 08/30/2022) [facility] History of Past illness Narrative* Problem Noted Date Resolved Date Acute low back pain 06/14/2022 08/24/2022 Cough 11/13/2007 10/14/2016 documented as of this encounter (statuses as of 09/13/2022) [address]24-2022 History of Past illness Narrative* Problem Noted Date Resolved Date Acute low back pain 06/14/2022 08/24/2022 Cough 11/13/2007 10/14/2016 documented as of this encounter (statuses as of 10/14/2022) [address]24-2022 History of Past illness Narrative* Problem Noted Date Resolved Date Acute low back pain 06/14/2022 08/24/2022 Cough 11/13/2007 10/14/2016 documented as of this encounter (statuses as of 12/21/2022) [facility] of Past illness Narrative* Problem Noted Date Diagnosed Date Resolved Date Acute low back pain 06/14/2022 08/24/19 Cough 11/13/2007 10/14/2016 documented as of this encounter (statuses as of 03/08/2023) [facility] of Past illness Narrative* Problem Noted Date Diagnosed Date Resolved Date Acute low back pain 06/14/2022 08/24/19 Cough 11/13/2007 10/14/2016 documented as of this encounter (statuses as of 03/29/2023) [address]24-[address]22 History of Past illness Narrative* Problem Noted Date Diagnosed Date Resolved Date Acute low back pain 06/14/2022 08/24/19 Cough 11/13/2007 10/14/2016 documented as of this encounter (statuses as of 06/25/2023) [address]24-2022 History of Present illness Narrative* Radha Law, PT - 06/14/2022 12:47 PM EDT Episode Visit Count: 1 Therapist That Will Accept/Oversee The Plan Of Care: Radha Law PT Start of Care Date: 06/14/22 Onset Date: 05/21/22 Plan of Care Certification Date: 06/14/22 Next Certification Due Date: 07/26/22 REHABILITATION AND SPORTS THERAPY PHYSICAL THERAPY EVALUATION PLAN OF CARE: Assessment: Rogerio Garcia presents with chief complaint of intermittent [...] of Care: created on 06/14/22 through 07/26/22 [place] in home exercise program. Patient will increase flexibility of I-T band to equal unaffected extremity/side to improve mechanics and decrease pain. Patient Goals: learn exs for right hip Planned Interventions, Frequency, and Duration: Current Frequency: 1x/week (as needed. Pt to call .) Duration: 4 weeks Total Number of Visits Planned: 4 Planned Treatment Interventions: Therapeutic exercise (30198);Neuromuscular re- education (02228);Manual therapy (40738);Self-skilled nursing management (70280);Patient/Family/Caregiver Education PLAN FOR NEXT VISIT: Will upgrade core and hip iff needed , Check I-T band Patient demonstrates good understanding of plan of care and treatment. The above goals and plan of care were discussed and agreed upon by patient/family. 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 Subjective Rogerio Garcia is a 76 year old male. He was seen for septic olecranon bursitis of the left elbow and this has improved a lot. Review of Systems Constitutional: Negative for chills, fatigue and fever. Musculoskeletal: Negative for arthralgias. Skin: Negative for color change and wound. ACTIVE PROBLEM LIST Atherosclerosis of [place] Coronary Artery of [place] Heart Without Angina Pectoris Other Hyperlipidemia S/P [...] (Temporal) Resp 16 Ht 167.6 cm (5' 6) Wt 70.8 kg (156 lb) BMI 25.18 [...] left pelvis Acute cholecystitis 11/17/2020 Atherosclerosis of [place] coronary artery of [place] heart without angina pectoris 08/02/2005 Bladder diverticulum [...] Comment: with evening meal. Drug use: No Rogerio likes to exercise by walking 2 miles daily. He watches his diet for sodium, low fat and lowcholesterol most of the time. List of current specialists seen: Dr. Abebe, cardiology. Dr. Ingram, urology. Dr. Grover, ophthalmology. End of Live Planning discussed including patients advanced directive wishes: Yes I am willing to follow Rogerio's advanced directives. Copy needed. PHQ-2 / Depression [...] (Temporal) Resp 16 Ht 167.6 cm (5' 6) Wt 70.8 kg (156 lb) BMI 25.18 [...] screening Blayne Cain MD documented in this encounterParkwood Hospital10-11-2022 Instructions* Patient Instructions* Kay Tai LPN - 06/01/2022 8:33 AM EDT DTAP,TDAP,TD(1 - Tdap) Never done SHINGRIX VACCINE(1 of 2) Never done ADVANCE DIRECTIVE DISCUSSION Never done Schedule PREVNAR 20 in 2-4 weeks. documented in this encounterParkwood Hospital10-06-2022 History of Present illness Narrative* Anh Garces, CHUCKING AND SAWING MACHINE OPERATOR.SLASHER RUNNER - 05/27/2022 9:08 AM EDT CC: Patient presents with: Pain (Elbow Pain): L elbow infection HPI Rogerio Garcia is a 76 year old male who presents today for left elbow edema and redness. Was in [place] beginning of April and had multiple mosquito bites. 2 weeks ago went to [place] and noticed his left elbow was swelling [...] left pelvis Acute cholecystitis 11/17/2020 Atherosclerosis of [place] coronary artery of [place] heart without angina pectoris 08/02/2005 Bladder diverticulum [...] plan. Anh Garces APRN.CNP documented in this encounterParkwood Hospital05-06-2022 History of Present illness Narrative* Darshana [...] 25, 2021 2:27 PM documented in this encounterParkwood Hospital03-24-2008 History of Past illness Narrative* Problem Noted Date Resolved Date Cough 11/13/2007 10/14/2016 documented as of this encounter (statuses as of 12/25/2021) [facility] of Past illness Narrative* Problem Noted Date Resolved Date Cough 11/13/2007 10/14/2016 documented as of this encounter (statuses as of 05/27/2022) [facility] of Past illness Narrative* Problem Noted Date Resolved Date Cough 11/13/2007 10/14/2016 documented as of this encounter (statuses as of 06/01/2022) [facility] of Past illness Narrative* Problem Noted Date Resolved Date Cough 11/13/2007 10/14/2016 documented as of this encounter (statuses as of 06/14/2022) [facility] note* Diagnosis Onset Date Resolution Status HLD (hyperlipidemia) chronic H/O coronary artery bypass surgery February 27, 1999 resolved [facility] Work Phone: [phone]) 748-314307-09-1999 Evaluation note* Diagnosis Onset Date Resolution Status Preop cardiovascular exam [place] HLD (hyperlipidemia) chronic H/O coronary artery bypass surgery February 27, 1999 [facility] Work Phone: Consult note Author Nahomi Boss [facility] Note Date/Time January 29, 2025 12:[facility] [address] [place] [address] Anesthesia Postop Eval I 01/29/25 1204 MR#: [id number] Acct: [id number] Name: ROGERIO GARCIA Rep #:[id number] : 1945 79 From: Nahomi Boss CRNA PCP: Dr. Blayne Cain MD Status:R EG SDC Y Race: C Location: [place] [address] Anesthesia: Postop Eval I Current Vital Signs Temperature: 97.9 F Pulse Rate: 70 Blood Pressure: 123/65 Respiratory Rate: 18 Pulse Ox: 93 Assessment Airway patent: Yes Spontaneous unlabored respirations: Yes nausea: No Vomiting: No Anesthesia Complication: No Fluid Hydration Crystalloid volume administer (ml): 400 Total IV fluid infused: 400 Progress Note Anesthesia document: Postop Eval 1 completed: Yes 01/29/25 1204 <Electronically signed by Nahomi burns REHAB TECH> Date _ Nahomi Boss REHAB TECH Cosigner Signature: Date CC: ~ Signed [facility] Work Phone: Discharge summary Author Justice Guerrero [facility] Note Date/Time January 02, 2025 8:36a m [facility] Medical Records Department [address] [place] [address] Emergency Department Summary 01/02/25 MR#: [id number] Acct: [id number] Name: ROGERIO GARCIA Rep #:[id number] : 1945 79 From: Justice Guerrero MD PCP: Dr. Blayne Cain MD Status:R EG ER Location: ED HPI History of Present Illness Chief Complaint: Constipation Informant: patient Onset/Context/Timing Onset: Days (6-7 days since last bowel movement.) Context: Sudden Onset Timing: Continuous Quality: Constipation, still passing gas Location: Abdomen generalized Current Severity: Mild Maximum Severity: Mild Worsened by: Not having a bowel movement Relieved by: Nothing Associated Symptoms Associated Symptoms: Bloating sensation Narrative Narrative: Patient is a 79-year-old male. He has history of hyperlipidemia and prediabetes. He states he has had weight loss due to change in his diet becauseof the prediabetes diagnosis. He does have history of coronary disease. He hasnot had a bowel movement in 6 to 7 days. He is still passing gas. He feels bloated distended. He is status postcholecystectomy. He has no history of bowel obstruction. He denies fever or chills. He denies respiratory symptoms. He denies urologic symptoms. He states he does have pressure in his rectal area. He has not strained because he gets hemorrhoids when he does this. Prior similar symptoms: No Recent Illness/Hospitalization: No PFSH PFSH Medical History Wears glasses Prostate disease History of renal disease Easy bruising Non-smoker Leg cramps Bladder diverticulum Ureterolithiasis Epididymitis, right GERD (gastroesophageal reflux disease) HLD (hyperlipidemia) Atherosclerotic heart disease of [place] coronary artery without angina pectoris Home Medications ?Medication ?Instructions ?Recorded ?Last Taken ?Type aspirin 81 mg chewable tablet 81 mg PO DAILY@0800 hear t 12/19/13 03/03/21 History multivitamin 1 tab PO DAILY PRN supplemen t 03/16/24 Unknown History atorvastatin 20 mg tablet 20 mg PO QHS dose decreased to 20 08/06/24 Unknown Rx mg #90 tabs Allergy/AdvReac Type Severity Reaction Status Date / Time No Known Allergies Allergy Verified 01/02/25 07:10 Family History Father Hx of CABG Mother Hx of CABG CAD (coronary artery disease) Surgical History History of transurethral resection of prostate (02/2021) History of cholecystectomy (10/2020) H/O coronary artery bypass surgery (02/27/99) Social History Smoking Status: Never smoker alcohol intake: current alcohol intake frequency: a few times a week Alcohol type: wine substance use type: does not use caffeine: No what type of physical activity do you participate in: walking and bicycling frequency: 3-4 times per week duration: 30-45 minutes/day seatbelt use: always do you feel safe at home: Yes ROS ROS ED Constitutional Constitutional ED: Reports weight loss; Denies chills, fever(s) or subjective Cardiovascular Cardiovascular: Denies chest pain or palpitations Respiratory/Chest Respiratory/Chest: Denies cough, dyspnea or dyspnea on exertion Gastrointestinal Gastrointestinal: Reports abdominal pain and constipation; Denies diarrhea, melena, nausea or vomiting Genitourinary Genitourinary ED: Denies dysuria, hematuria or urinary frequency Musculoskeletal Musculoskeletal: Denies back pain Hematologic/Lymphatic Hematologic/Lymphatic: Reports systems reviewed and no addt'l complaints, exceptas documented EXAM Physical Exam Const Vital Signs: 01/02/25 07:07 Temperature 97.4 F L Temperature Source Oral Pulse Rate 64 Respiratory Rate 16 Blood Pressure 144/72 H Blood Pressure Mean 96 Pulse Ox 100 Oxygen Delivery Method Room Air Positive well nourished and well developed General Appearance ED: well developed and NAD HEENT Reports moist mucous membranes HEENT Narrative: Head is atraumatic normocephalic. Ears normal. Nares patent. Eyes PERRL and EOMs intact bilaterally General Eye ED: Negative for scleral icterus Neck supple and no JVD Resp normal respiratory effort and clear to auscultation bilaterally Cardio regular rate, regular rhythm, S1 normal heart sound, S2 normal heart sound and no murmurs GI no masses; Negative for normal to inspection, nondistended, normoactive bowel sounds, non-tender, non-distended or hepatosplenomegaly GI Narrative: There is central tamponade. Bowel sounds are slightly decreased. There is minimal periumbilical tenderness. Rectal exam reveals hemorrhoids. There is nobleeding. There is no stool in the rectal vault. Prostate was normal size and nontender. Inspection: abdominal distention Palpation: soft Rectal Exam: normal sphincter tone and prostate normal Extremity normal to inspection Neuro oriented x3 and CN's II-XII intact bilaterally Sensorium / Orientation: alert Psych mental status grossly normal Skin no rashes or lesions noted and no wounds MDM MDM MDM Narrative Medical decision making narrative: Patient's history and physical is consistent with obstipation. This may be due to his change in diet. There is no concern for obstruction at this point since he is still flagellated. He may have an ileus. Will obtain 2 view abdominal series to assess bowel gas pattern to determine if patient has an ileus versus constipation due to increased fecal load versus other causes. Symptoms been going on a week his exam is benign vital signs are normal my opinion laboratory tests are not indicated or warranted. History & Record Review Additional record(s) reviewed:: Prior outpatient record (H&P and operative note authored by Dr. Ingram February 2021 was reviewed. Also there was blood work from outside facility February 2023 that was reviewed.), Prior ED visit (Prior ER visit April 2019 for chest pain due to GERD was authored by Dr. Patricio Palacios.) and Prior labs Radiography Chest X-Ray - ED: 2 View and Read by ED Physician (2 view x-ray of the abdomen was obtained. There is notes of gas pattern. There is significant mount of fecal stasis especially distal half of the transverse colon and the descending colon. There is no evidence of pneumoperitoneum. There is no significant atherosclerotic disease noted. Osseous s) Diagnostic Testing: Clinical Impression(s) from Imaging Studies Abdomen X-Ray 01/02/25 07:49 IMPRESSION: Constipation. Reading Location: [facility] Treatment and Re-Evaluation :: Patient was informed of his x-ray results. Plan was formulated. He understands. Discharge Plan Triage Chief Complaint: Constipation ED Provider: Justice Guerrero Dx/Rx/DC Orders Clinical Impression: Obstipation, Atherosclerotic heart disease of [place] coronary artery without angina pectoris, HLD (hyperlipidemia), Prediabetes Instructions: ED Constipation (Adult) Prescriptions: No Action multivitamin Tablet 1 tab PO DAILY PRN (Reason: supplement) aspirin 81 MG tablet,chewable 81 mg PO DAILY@0800 Patient Comments: heart health atorvastatin 20 mg tablet 20 mg PO QHS Qty: 90 3RF Primary Care Provider: Blayne Cain Referrals: Blayne Cain MD [Primary Care Provider] - As Needed Activity Restrictions/Additional Instructions: 1. 10 ounces of mag citrate once you get home. 2. 4 hours after you drink the mag citrate 1 capful of MiraLAX in your favoritebeverage. Repeat this every hour until you start to have results. 3. Recommend MiraLAX once daily for the next week. Print Language: Burundian Disposition Disposition: Home, Self Care What to do if you have Problems For any increased pain, shortness of breath, bleeding, nausea or vomiting, chestpain, or any unexpected problems, contact your Primary Care Provider. Call [facility] ([phone]) or report to the closest Emergency Room. Call 911 if necessary. 01/02/25 0836 <Electronically signed by Justice Guerrero MD> Cosigner Signature (if applicable): CC: Dr. Blayne Cain MD ~ Signed [facility] Work Phone: Evaluation note* Diagnosis Septic olecranon bursitis of left elbow- Primary [facility] Diagnosis Medicare annual wellness visit, subsequent- Primary Routine general medical examination at a health care facility Need for influenza vaccination Need for prophylactic vaccination and inoculation against influenza Need for COVID-19 vaccine Septic olecranon bursitis of left elbow Other hyperlipidemia [facility] Diagnosis Acute low back pain, unspecified back pain laterality, unspecified whether sciatica present [facility] noteNo assessment information availableWAkron Children[facility] Work Phone: Evaluation note* Diagnosis Encounter for immunization- Primary Need for other specified prophylactic vaccination against single bacterial disease documented [facility]* Diagnosis Encounter for immunization- Primary Need for other specified prophylactic vaccination against single bacterial disease documented [facility]* Diagnosis Need for vaccination- Primary Need for prophylactic vaccination and inoculation against unspecified single disease documented [facility] this [facility]* Diagnosis Encounter for immunization Need for other specified prophylactic vaccination against single bacterial disease documented in this [facility]* Diagnosis Medicare annual wellness visit, subsequent- Primary Routine general medical examination at a health care facility Screening for depression Encounter for screening examination for other mental health and behavioral disorders Elevated hemoglobin A1c Other abnormal blood chemistry Atherosclerosis of [place] coronary artery of [place] heart without angina pectoris Other hyperlipidemia Loss of height Paronychia of third toe Outbursts of anger Undersocialized conduct disorder, aggressive type, unspecified [facility]* Diagnosis Osteopenia, senile- Primary Disorder of bone and cartilage, unspecified [facility] Shawn Christian [facility] Note Date/Time January 29, 2025 11:1 9am [facility] Medical Records Department [address] [place] [id number] History & Physical Exam 01/29/25 1118 MR#: [id number] Acct: [id number] Name: ROGERIO GARCIA Rep #:[id number] : 1945 79 From: Shawn Christian MD PCP: Dr. Blayne Cain MD Status:[facility] Location: [place] [address] HPI - General General Date of Admission: 01/29/25 Date of Service: 02/20/25 Chief Complaint: colonoscopy for constipation HPI Narrative The patient is a 79-year-old male who is being seen today for constipation whichhas come on rather abruptly. Patient is now taking MiraLAX daily with better results. I have offered him a colonoscopy since he has never had one previously.We discussed the details of the planned procedure and he wishes to proceed. Thiswill be scheduled in a timely manner. In the meantime, I am recommending that hollyontinue doing MiraLAX daily. He is agreeable to this plan. [facility] Medical History Alcohol use Cardiology follow-up encounter Constipation Wears glasses Prostate disease History of renal disease Easy bruising Non-smoker Leg cramps Bladder diverticulum Ureterolithiasis Epididymitis, right GERD (gastroesophageal reflux disease) HLD (hyperlipidemia) Atherosclerotic heart disease of [place] coronary artery without angina pectoris Home Medications ?Medication ?Instructions ?Recorded ?Last Taken ?Type aspirin 81 mg chewable tablet 81 mg PO DAILY@0800 hear t 12/19/13 01/28/25 History multivitamin 1 tab PO DAILY PRN supplemen t 03/16/24 01/27/25 History atorvastatin 20 mg tablet 20 mg PO QHS dose decreased to 20 08/06/24 01/27/25 Rx mg #90 tabs magnesium oxide 250 mg PO DAILY 01/25/2505/16 History Allergy/AdvReac Type Severity Reaction Status Date / Time No Known Allergies Allergy Verified 01/29/25 10:26 Family History Father Hx of CABG Mother Hx of CABG CAD (coronary artery disease) Surgical History History of transurethral resection of prostate (02/2021) History of cholecystectomy (10/2020) H/O coronary artery bypass surgery (02/27/99) Social History Smoking Status: Never smoker alcohol intake: current alcohol intake frequency: a few times a week Alcohol type: wine substance use type: does not use caffeine: No what type of physical activity do you participate in: walking and bicycling frequency: 3-4 times per week duration: 30-45 minutes/day seatbelt use: always do you feel safe at home: Yes Vital Signs Vital Signs Vital Signs: 01/29/25 10:28 01/29/25 10:29 01/29/25 10:34 Temperature 98.3 F 98.3 F Temperature Source Temporal Pulse Rate 68 68 Respiratory Rate 18 18 Respiratory Pattern Normal Blood Pressure 128/66 H 128/66 H Blood Pressure Mean 86 Blood Pressure Source Monitor Blood Pressure Position Semi-Fowlers Blood Pressure Location Left Arm Pulse Ox 100 100 Oxygen Delivery Method Room Air Weight Weight: 152 lb 6.4 oz Body Mass Index (BMI) 23.8 Assessment & Plan Assessment/Plan (1) Constipation: PLAN: Plan The patient is a 79-year-old male with issues of constipation recently. I have offered him a colonoscopy. We discussed the details of the planned procedure and he wishes to proceed. This will begin momentarily 01/29/25 1119 <Electronically signed by Shawn Christian MD> Cosigner Signature (if applicable): CC: Dr. Shawn Christian MD; Dr. Blayne Cain MD~ Signed [facility] Work Phone: Hospital Discharge instructions Additional Instructions 1. 10 ounces of mag citrate once you get home. 2. 4 hours after you drink the mag citrate 1 capful of MiraLAX in your favorite beverage. Repeat this every hour until you start to have results. 3. Recommend MiraLAX once daily for the next week.[facility] Work Phone: Reason for referral (narrative)No reason for referral information availableWooGerman Hospital Work Phone: Summary Purpose Family History No Family History Records Found Relationship Condition Age at Onset Recorded Date/T jostin father History of coronary artery bypass surgery Unknown mother History of coronary artery bypass surgery Unknown Coronary artery disease Unknown Advance Directives No Advanced Directives Records Found Advance Directive Response Recorded Date/ Time Living Will Yes March 11, 2021 11:36am Power of Classroom Assistant Yes March 11 11:36am Documents on File Type Date Recorded 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 No January 02, 2025 7:07am Advance Directive Response Recorded Date/ Time Do you have a Healthcare Power of Classroom Assistant? Yes January 25, 2025 8:59am Name of Medical Power of Classroom Assistant January 25, 2025 8:59am Do you have a Healthcare Power of Classroom Assistant? No January 02, 2025 7:07am Chief Complaint and Reason for Visit Chief Complaint 1 Y FU/MOVED FROM 02/25 INT LABS Reason for Visit HLD (hyperlipidemia) H/O coronary artery bypass surgery Chief Complaint 1 Y FU/MOVED FROM 02/25 INT LABS CAD Coronary artery disease Reason for Visit HLD (hyperlipidemia) H/O coronary artery bypass surgery Chief Complaint 1 y fu SURG CLEARANC E / NEEDS EKG AND LIPID PANEL INT LABS/ORDER TWO DR'S Reason for Visit Preop cardiovascular exam HLD (hyperlipidemia) H/O coronary artery bypass surgery Chief Complaint E ORDER Chief Complaint Admit Date [employer] December 27, 2024 8:45am constipation January 02, 2025 7:06a m Chief Complaint Admit Date [employer] December 27, 2024 8:45am constipation January 02, 2025 7:06a m COLONOSCOPY January 04, 2025 1:59p m Reason for Visit Admit Date Constipation January 04, 2025 1:59p m Constipation January 29, 2025 10:0 6am Reason for Referral Specialty Diagnoses / Procedures Referred By Florentino lopez Referred To Contact Orthopedics Diagnoses Septic olecranon bursitis of left elbow Procedures CONSULT TO ORTHOPAEDICS OFFICE/OUTPATIENT NEW HIGH MDM 60-74 MINUTES Older, DANIEL Kamara.SLASHER RUNNER [address] [place] [address] Referral ID Status Reason Start Date Expiration Date Visits Requested Visits Authorized [id number] Authorized PCP Requested Referral 05/27/2022 05/27/2023 1 1 Specialty Diagnoses / Procedures Referred By Florentino lopez Referred To Contact [facility] Diagnoses Acute low back pain, unspecified back pain laterality, unspecified whether sciatica present Procedures PT REHAB FOLLOW UP ORDER THERAPEUTIC EXERCISES RE, EA 15 MIN. Pt [facility] [address] [place] [address] [facility] [place] [address] [place] [address] Referral ID Status Reason Start Date Expiration Date Visits Requested Visits Authorized [id number] Pending Review PCP Requested Referral Auto-Generate d Referral 2 09/12/2022 1 1 Specialty Diagnoses / Procedures Referred By Contac t Referred To Contact Psychology Diagnoses Outbursts of anger Procedures CONSULT TO PSYCHOLOGY Blayne Cain MD [address] [place] [address] Referral ID Status Reason Start Date Expiration Date Visits Requested Visits Authorized [id number] Authorized PCP Requested Referral 09/05/2024 09/05/2025 1 1 Specialty Diagnoses / Procedures Referred By Contac t Referred To Contact XR IMAGING Diagnoses Loss of height Procedures DXA-AXIAL SKELETON DXA BONE DENSITY STUDY SITES AXIAL SKEL Blayne Cain MD [address] [place] [address] [place] [id number] Referral ID Status Reason Start Date Expiration Date Visits Requested Visits Authorized [id number] Authorized Auto-Generat ed Referral 09/05/2024 10/05/2025 1 1 Additional Source Comments (unrecognized sect ion and content) No Status Records FoundNo Status Records FoundNo Status Records Found INFORMATION SOURCE (unrecogn ized section and content) DATE CREATED AUTHOR 12/21/2020 [facility] DATE CREATED AUTHOR AUTHOR'S ORGANIZ ATION 01/07/2025 [facility] DATE CREATED AUTHOR AUTHOR'S ORGANIZ ATION 02/11/2025 [facility] Source Comments (unrecognize d section and content) In the event this informatio n is protected by the Federal Confidentiality of Alcohol and Drug Abuse Patient Records regulations: The Federal rules restrict any use of the information to criminally investigate or prosecute any alcohol or drug abuse patient.[facility] the event this information is protected by the Federal Confidentiality of Alcohol and Drug Abuse Patient Records regulations: The Federal rules restrict any use of the information to criminally investigate or prosecute any alcohol or drug abuse patient.[facility] Hospital[facility] the event this information is protected by the Federal Confidentiality of Alcohol and Drug Abuse Patient Records regulations: The Federal rules restrict any use of the information to criminally investigate or prosecute any alcohol or drug abuse patient.[facility] the event this information is protected by the Federal Confidentiality of Alcohol and Drug Abuse Patient Records regulations: The Federal rules restrict any use of the information to criminally investigate or prosecute any alcohol or drug abuse patient.[facility] Hospital[facility] the event this information is protected by the Federal Confidentiality of Alcohol and Drug Abuse Patient Records regulations: The Federal rules restrict any use of the information to criminally investigate or prosecute any alcohol or drug abuse patient.[facility] Hospital[facility] the event this information is protected by the Federal Confidentiality of Alcohol and Drug Abuse Patient Records regulations: The Federal rules restrict any use of the information to criminally investigate or prosecute any alcohol or drug abuse patient.[facility] HospitalIn the event this information is protected by the Federal Confidentiality of Alcohol and Drug Abuse Patient Records regulations: The Federal rules restrict any use of the information to criminally investigate or prosecute any alcohol or drug abuse patient.[facility] Hospital[facility] the event this information is protected by the Federal Confidentiality of Alcohol and Drug Abuse Patient Records regulations: The Federal rules restrict any use of the information to criminally investigate or prosecute any alcohol or drug abuse patient.[facility] the event this information is protected by the Federal Confidentiality of Alcohol and Drug Abuse Patient Records regulations: The Federal rules restrict any use of the information to criminally investigate or prosecute any alcohol or drug abuse patient.[facility] the event this information is protected by the Federal Confidentiality of Alcohol and Drug Abuse Patient Records regulations: The Federal rules restrict any use of the information to criminally investigate or prosecute any alcohol or drug abuse patient.[facility] Hospital[facility] the event this information is protected by the Federal Confidentiality of Alcohol and Drug Abuse Patient Records regulations: The Federal rules restrict any use of the information to criminally investigate or prosecute any alcohol or drug abuse patient.[facility] HospitalIn the event this information is protected by the Federal Confidentiality of Alcohol and Drug Abuse Patient Records regulations: The Federal rules restrict any use of the information to criminally investigate or prosecute any alcohol or drug abuse patient.[facility] Hospital[facility] the event this information is protected by the Federal Confidentiality of Alcohol and Drug Abuse Patient Records regulations: The Federal rules restrict any use of the information to criminally investigate or prosecute any alcohol or drug abuse patient.[facility] HospitalIn the event this information is protected by the Federal Confidentiality of Alcohol and Drug Abuse Patient Records regulations: The Federal rules restrict any use of the information to criminally investigate or prosecute any alcohol or drug abuse patient.[facility] Hospital[facility] the event this information is protected by the Federal Confidentiality of Alcohol and Drug Abuse Patient Records regulations: The Federal rules restrict any use of the information to criminally investigate or prosecute any alcohol or drug abuse patient.[facility] HospitalIn the event this information is protected by the Federal Confidentiality of Alcohol and Drug Abuse Patient Records regulations: The Federal rules restrict any use of the information to criminally investigate or prosecute any alcohol or drug abuse patient.[facility] the event this information is protected by the Federal Confidentiality of Alcohol and Drug Abuse Patient Records regulations: The Federal rules restrict any use of the information to criminally investigate or prosecute any alcohol or drug abuse patient.[facility] Reason for Visit (unrecogniz ed section and content) Reason Onset Date Comments Population Health Navigation Outreach 12/25/2021 [facility] Reason Comments Pain (Elbow Pain) L elbow [...] HIGH COMPLEX 45 MINS Blayne Cain MD [address] [place] [address] Pt [facility] [address] [place] [address] Referral ID Status Reason Start Date Expiration Date V isits Requested Visits Authorized [id number] Closed Auto-Generate d Referral 08/22/2021 08/21/2022 1 1 Reason Comments Orders Reason Comments Imm/Inj Reason Comments Results Reason Comments Patient Update Reason Comments Medicare Wellness Exam Reason Onset Date Comments ACM PARVEEN RN 01/04/2025 Chart review review per request of payor Care Teams (unrecognized sec tion and content) 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 Field Technician Relationship Specialty Start Date End Date Blayne Cain MD [address] [place] [address] PCP - General Internal Medicine 06/11/20 Soil Field Technician Relationship Specialty Start Date End Date Blayne Cain MD [address] [place] [address] PCP - General Internal Medicine 06/11/20 Soil Field Technician Relationship Specialty Start Date End Date Blayne Cani MD [address] [facility] [place] [address] PCP - General Internal Medicine 06/11/20 Soil Field Technician Relationship Specialty Start Date End Date Blayne Cain MD [address] [facility] [place] [address] PCP - General Internal Medicine 06/11/20 Soil Field Technician Relationship Specialty Start Date End Date Blayne Cain MD [address] [facility] [place] [address] PCP - General Internal Medicine 06/11/20 Soil Field Technician Relationship Specialty Start Date End Date Blayne Cain MD [address] [facility] [place] [address] PCP - General Internal Medicine 06/11/20 Soil Field Technician Relationship Specialty Start Date End Date Blayne Cain MD [address] [place] [address] PCP - General Internal Medicine 06/11/20 Team Status: Active Member Role Status Dates Dr. Blayne Cain MD Family Provider Active Dr. Blayne Cain MD Primary Care Provider Active Team Status: Inactive Member Role Status Dates Dr. Blayne Cain MD Primary Care Provider, Refer ring Provider Active Dr. Gray Abebe MD Attending Provider Active Team Status: Inactive Member Role Status Dates Dr. Blayne Cain MD Primary Care Provider Active Dr. Raymundo Ingram MD Attending Provider, Referr ing Provider Active Dr. Gray Abebe MD Other Provider Active Soil Field Technician Relationship Specialty Start Date End Date Blayne Cain MD [address] [place] [address] PCP - General Internal Medicine 06/11/20 Soil Field Technician Relationship Specialty Start Date End Date Blayne Cain MD [address] [facility] [place] [address] PCP - General Internal Medicine 06/11/20 Team Status: Inactive Member Role Status Dates Dr. Blayne Cain MD Primary Care Provider Active Dr. Gray Abebe MD Attending Provider, Referring Pro vider Active Soil Field Technician Relationship Specialty Start Date End Date Blayne Cain MD [address] [facility] [place] [address] PCP - General Internal Medicine 06/11/20 Soil Field Technician Relationship Specialty Start Date End Date Blayne Cain MD [address] [facility] [place] [address] PCP - General Internal Medicine 06/11/20 Soil Field Technician Relationship Specialty Start Date End Date Blayne Cain MD [address] [place] [address] PCP - General Internal Medicine 06/11/20 Yoli Huber, CHUCKING AND SAWING MACHINE OPERATOR.SLASHER RUNNER [address] [place] [address] Contract Post Office Clerk Internal Medicine 07/30/24 Soil Field Technician Relationship Specialty Start Date End Date Blayne Cain MD [address] [place] [address] PCP - General Internal Medicine 06/11/20 Yoli Huber, CHUCKING AND SAWING MACHINE OPERATOR.SLASHER RUNNER [address] [facility] [place] [address] Contract Post Office Clerk Internal Medicine 07/30/24 Soil Field Technician Relationship Specialty Start Date End Date Blayne Cain MD [address] [place], [place] [address] PCP - General Internal Medicine 06/11/20 Yoli Huber, CHUCKING AND SAWING MACHINE OPERATOR.SLASHER RUNNER [address] [place], [place] [id number] Contract Post Office Clerk Internal Medicine 07/30/24 Team Status: Active Member Role Status Dates Dr. Blayne Cain MD Primary Care Provider Active Team Status: Active Member Role Status Dates Dr. Blayne Cain MD Primary Care Provider Active Start: December 27, 2024 Self Referred Attending Provider Active Start: M ay 2024 Self Referred Referring Provider Active Start: M ay 2024 Team Status: Active Member Role Status Dates Dr. Blayne aCin MD Primary Care Provider Active Start: December 27, 2024 Dr. Patricio Danielle MD Attending Provider Active S tart: December 27, 2024 Team Status: Inactive Member Role Status Dates Dr. Blayne Cain MD Primary Care Provider Active Start: January 02, 2025 End: January 02, 2025 Dr. Justice Guerrero MD Emergency Provider Active Sta rt: January 02, 2025 End: January 02, 2025 Team Status: Inactive Member Role Status Dates Dr. Blayne Cain MD Primary Care Provider Active Start: January 04, 2025 End: January 04, 2025 Dr. Blayne Cain MD Referring Provider Active Start: January 04, 2025 End: January 04, 2025 Dr. Shawn Christian MD Attending Provider Active Start: January 04, 2025 End: January 04, 2025 Soil Field Technician Relationship Specialty Start Date End Date Blayne Cain MD [address] [place] [address] PCP - General Internal Medicine 06/11/20 Yoli Huber, CHUCKING AND SAWING MACHINE OPERATOR.SLASHER RUNNER [address] [facility] [place] [address] Contract Post Office Clerk Internal Medicine 07/30/24 Team Status: Inactive Member Role Status Dates Dr. Blayne Cain MD Primary Care Provider Active Start: January 02, 2025 End: January 02, 2025 Dr. Justice Guerrero MD Attending Provider Active Sta rt: January 02, 2025 End: January 02, 2025 Dr. Justice Guerrero MD Emergency Provider Active Sta rt: January 02, 2025 End: January 02, 2025 Team Status: Inactive Member Role Status Dates Dr. Blayne Cain MD Primary Care Provider Active Start: January 29, 2025 End: January 29, 2025 Dr. Blayne Cain MD Referring Provider Active Start: January 29, 2025 End: January 29, 2025 Dr. Shawn Christian MD Attending Provider Active Start: January 29, 2025 End: January 29, 2025 Team Status: Active Member Role Status Dates Dr. Blyane Cain MD Primary Care Provider Active Start: January 29, 2025 Dr. Blayne Cain MD Referring Provider Active Start: January 29, 2025 Dr. Shawn Christian MD Attending Provider Active Start: January 29, 2025 Dr. Shawn Christian MD Other Provider Active St art: January 29, 2025 Goals (unrecognized section and content) Goals may be documented in a n alternate sectionGoals may be documented in an alternate sectionGoals may be documented in an alternate sectionGoals may be documented in an alternate sectionGoals may be documented in an alternate sectionGoals may be documented in an alternate sectionGoals may be documented in an alternate section FOR RECORDS PERTAINING TO PATIENTS WHO ARE [...] BE BASED ON THE PRIMARY CLINICAL RECORDS. 20/20 [employer] [facility]. provides no warranty or guarantee of the accuracy or completeness of information in this document.
[2025-02-28 09:05] LABS: AST(SGOT) 31 U/L (<=37); Alanine Aminotransfer ALT/SGPT 35 U/L (<=46); Albumin, Serum 4.2 g/dL (3.4-4.8); Alkaline Phosphatase 77 U/L (40-129); Anion Gap 10 (5-15); BUN 20 mg/dL (4-19); BUN/Creat Ratio 20.9 RATIO (10-20); Calcium,Total 9.2 mg/dL (7.6-11.0); Carbon Dioxide 27.2 mmol/L (21.0-32.0); Chloride 104 mmol/L (98-108); Cholesterol 138 mg/dL (<=200); Globulin 2.5 g/dL (2.2-4.2); Glucose 106 mg/dL (70-99); Low Density Lipoprotein Calc. 74 mg/dL; Potassium 4.5 mmol/L (3.3-5.1); Triglycerides 103 mg/dL; Very Low Density Lipoprotein 21 mg/dL (5-40); cholesterol:hdl ratio screen 3.20
== END | disposition home or self-care (01) ==
LOC: LAB 06:40
PROVIDERS: PCP Internal Medicine; Referring Provider Internal Medicine Cardiovascular Disease; Visit Provider Internal Medicine Cardiovascular Disease
DX: I25.10 Atherosclerotic heart disease of native coronary artery without angina pectoris (principal); E78.00 Pure hypercholesterolemia, unspecified; R73.9 Hyperglycemia, unspecified
CPT/HCPCS: 36415; 80053; 80061; 83036